=== PATIENT | female | born 1990 | race African-American/Black ===

== ENCOUNTER → 2016-11-03 | Outpatient (CLI) | payer MEDICAID ==
[~2016-11-03] MED LIST: ALBU17AE23 INH; AMIT25TA9 PO; AMLO5TAB2 PO; CEFD300C3 PO; CEFU250T PO; CEPH500C PO; CIPR500T78 PO; CPR500T PO; DIPH25TA82 PO; IBUP200C92 PO; LOSA100T28 PO; LOSA100T7 PO; NF-ESOM40C PO; NITR100C3 PO; ONDA8TAB9 PO; OXYC10TA63 PO; OXYC10TA7 PO; OXYC10TA8 PO; OXYC5TAB49 PO; PANT40TA2 PO; PHEN200T27 PO; RABE20TA PO; RT-ALBUINH IH; SULF1TAB38 PO; TEST2.5G6; TRM50T PO
--- OUTSIDE RECORDS SUMMARY | 2016-11-03 10:50 | XMS REPORT | Continuity of Care Document ---
Author Author [facility] Organization [facility] Address Unknown Phone Unavailable Care Team Providers Care Track Worker Name Role Phone Monse Schaeffer PCP [phone] Source Comments Some departments are not documenting in the electronic medical record. If you do not see the information that you expected, contact Release of Information in the Health Information Management department at [phone] for further assistance in locating additional records.[facility] Active Allergies and Adverse Reactions Allergen Noted Date Severity Reactions Comments Latex 05/02/2003 SEE COMMENTS Allergy recorded in SMS: Latex " latex is just precautionary because of her spina bifida" Lisinopril 04/19/2013 COUGH Macrobid 02/20/2014 SEE COMMENTS FLU LIKE SYMPTOMS - FEVER Metformin 04/19/2013 NAUSEA AND VOMITING Nuts 03/21/2008 NAUSEA AND VOMITING ONLY tree nuts,patient tolerates peanuts. Throat may swell up, but Dr. Galaviz stops it per patient Current Medications Prescription Sig. Disp. Refills Start End Date Status Date RABEprazole DR (+) Take 20 mg by mouth Active (ACIPHEX) 20 mg tablet daily. albuterol (VENTOLIN HFA, Inhale 2 Puffs by mouth Active PROAIR HFA) 90 every 6 hours as needed. mcg/actuation inhaler vitamins, multi PED Take 2 Tabs by mouth Active (GUMMI BEAR MULTIVITAMIN) daily. Chew ciprofloxacin (CIPRO) 500 Take 500 mg by mouth Active mg tablet twice daily. losartan(+) (COZAAR) 100 Take 1 Tab by mouth 90 Tab 3 02/11/20 Active mg tablet daily. 15 Active Problems Problem Noted Date Postop check 05/13/2013 Overview: 04/29/13 Foot deformity 12/16/2012 Overview: -- right foot HTN (hypertension) 12/11/2012 Hydrocele, congenital 10/15/2009 Status post ventriculoperitoneal shunt 10/15/2009 Spina bifida (HCC) 04/02/2008 Neurogenic bladder 04/02/2008 Social History Tobacco Use Types Packs/Day Years Used Date Never Smoker Smokeless Tobacco: Never Used Alcohol Use Drinks/Week oz/Week Comments No Last Filed Vital Signs Vital Sign Reading Time Taken Blood Pressure 134/83 04/28/2014 10:30 AM CDT Pulse 77 04/28/2014 10:30 AM CDT Temperature 36.5 C (97.7 F) 04/28/2014 10:15 AM CDT Respiratory Rate 18 01/23/2014 9:09 AM CDT Height 1.702 m (5' 7") 04/28/2014 7:44 AM CDT Weight 92.9 kg (204 lb 12.9 oz) 04/28/2014 7:44 AM CDT Body Mass Index 32.07 04/28/2014 7:44 AM CDT Oxygen Saturation 98% 04/28/2014 10:30 AM CDT Plan of Care Health Maintenance Due Date Last Done Comments Physical (Comprehensive) 1998 Exam Hpv Vaccines (#1) 2002 Pertussis Vaccine 2002 Tetanus Vaccine 2008 Cervical Cancer Screening 2012 Influenza Vaccine 06/02/2016 Results from Last 3 Months Not on file
--- NOTE | 2016-11-03 11:20 | Diagnostic Imaging Report ---
PROCEDURE: US Thyroid. TECHNIQUE: Multiple real-time grayscale images were obtained of the thyroid in various projections. INDICATION: Thyromegaly. FINDINGS: There is a right thyroid mass measuring 3 x 3.4 x 2.2 CM in the lower aspect of the right lobe with internal vascularity. The right thyroid lobe is 5.2 x 2.6 x 3.8 CM. The left lobe is 5.4 x 1.3 x 1.7 CM. No other nodules seen. IMPRESSION: Single inferior right thyroid lobe mass measuring 3.4 CM. Ultrasound-guided biopsy is recommended. Report was faxed to office of Marko Rivera by kellen massey 11:25 am. Dictated by: Dictated on workstation # [id number]
== END ==
LOC: RAD 10:43
PROVIDERS: ATTEND Nurse Practitioner Family
DX: E04.9 Nontoxic goiter, unspecified (principal)
CPT/HCPCS: 76536

== ENCOUNTER → 2016-11-24 | Outpatient (CLI) | payer MEDICAID ==
[~2016-11-24] VITALS: Ht 165.1 cm; Wt 90.7 kg
[~2016-11-24] MED LIST changes: +LIDOCAINE 1% INJ 20 ML (XYLOCAINE) VIAL INJ ONE
--- OUTSIDE RECORDS SUMMARY | 2016-11-24 10:54 | XMS REPORT | Continuity of Care Document ---
Author Author [facility] Organization [facility] Address Unknown Phone Unavailable Care Team Providers Care Loop Puller Name Role Phone Monse Schaeffer PCP [phone] Source Comments Some departments are not documenting in the electronic medical record. If you do not see the information that you expected, contact Release of Information in the Health Information Management department at [phone] for further assistance in locating additional records.[facility] Active Allergies and Adverse Reactions Allergen Noted [...]
--- NOTE | 2016-11-25 16:21 | Diagnostic Imaging Report ---
INDICATION: Thyroid mass. 205 ?Ci of I-123 was given p.o. The 4-hour uptake is 11% and the 24-hour uptake is 35%. Thyroid scan does show a cold nodule inferiorly in the right lobe which does correlate with the sonographic mass. IMPRESSION: 1. Solid nodule right lower lobe which represents a cold nodule on the thyroid scan. Ultrasound-guided fine-needle aspiration is indicated. 2. Normal thyroid uptake. Dictated by: Dictated on workstation # [id number]
== END ==
LOC: CARD 10:51
PROVIDERS: ATTEND Nurse Practitioner Family
DX: E07.89 Other specified disorders of thyroid (principal)
CPT/HCPCS: 78014

== ENCOUNTER → 2016-11-29 | Outpatient (CLI) | payer MEDICAID ==
[~2016-11-29] MED LIST changes: -LIDOCAINE 1% INJ 20 ML (XYLOCAINE) VIAL INJ ONE; +LIDOCAINE 1% INJ 20 ML (XYLOCAINE) VIAL ONE
--- NOTE | 2016-11-29 15:57 | Diagnostic Imaging Report ---
EXAMINATION: US-guided core biopsy-thyroid mass. INDICATION: Solid right thyroid mass measuring 3.4 CM. Current history and physical and other medical records are reviewed prior to the procedure. CONSENT: Informed consent was obtained from the patient. The risks, benefits, potential complications and alternatives were reviewed and all questions answered to the patient's satisfaction. The patient's vital signs, cardiac rhythm, and pulse oximetry with observed throughout the procedure by qualified nursing personnel. Sedation/medications: none. FINDINGS: 3.4 CM solid right thyroid mass. PROCEDURE: After maximal sterile barrier technique preparation and draping, 1% lidocaine was utilized for local anesthesia. With the patient in supine position, and via anterior approach, a 19-gauge guide needle is introduced into the right thyroid mass under live ultrasound guidance. After confirming adequate positioning with saved ultrasound images, multiple 20 gauge core biopsy specimens were obtained. The patient tolerated the procedure well with no immediate complications. IMPRESSION: Successful US-guided core biopsy of right thyroid mass. Dictated by: Dictated on workstation # [id number]
--- OUTSIDE RECORDS SUMMARY | 2016-11-29 16:06 | XMS REPORT | Continuity of Care Document ---
Author Author [facility] Organization [facility] Address Unknown Phone Unavailable Care Team Providers Care Upholstery Bundler Name Role Phone Monse Schaeffer PCP [phone] Source Comments Some departments are not documenting in the electronic medical record. If you do not see the information that you expected, contact Release of Information in the Health Information Management department at [phone] for further assistance in locating additional records.[facility] Active Allergies and Adverse Reactions Allergen Noted [...] 04/28/2014 10:30 AM CDT Plan of Care Date Type Specialty Providers Description 12/29/2016 Appointment Family Medicine Joyce Milan MD [address] [place] [address] [phone] (Fax) Health Maintenance Due Date Last Done Comments Physical (Comprehensive) 1998 Exam Hpv Vaccines (#1) 2002 Pertussis Vaccine 2002 Tetanus Vaccine 2008 Cervical Cancer Screening 2012 Influenza Vaccine 06/02/2016 Results from Last 3 Months Not on file
== END ==
LOC: RAD 12:55
PROVIDERS: ATTEND Nurse Practitioner Family
DX: E07.89 Other specified disorders of thyroid (principal)
CPT/HCPCS: 76942; 88305

== ENCOUNTER → 2016-12-29 | Outpatient (CLI) | payer MEDICAID ==
[~2016-12-29] MED LIST changes: -LIDOCAINE 1% INJ 20 ML (XYLOCAINE) VIAL ONE
--- NOTE | 2016-12-29 17:13 | Diagnostic Imaging Report ---
Renal ultrasound. INDICATION: Reflux. FINDINGS: The right kidney is 13.5 cm and the left kidney is 11.3 cm in length. There is bilateral mild hydronephrosis seen. The urinary bladder appears unremarkable. IMPRESSION: Bilateral mild hydronephrosis. Dictated by: Dictated on workstation # [id number]
== END ==
LOC: RAD 12:49
PROVIDERS: ATTEND Nurse Practitioner Family
DX: N31.1 Reflex neuropathic bladder, not elsewhere classified (principal)
CPT/HCPCS: 76770

== ENCOUNTER 2017-01-21 17:20 | Emergency (ER) | payer MEDICAID ==
[~2017-01-21] VITALS: Ht 165.1 cm; Wt 94.3 kg
[~2017-01-21 17:20] MED LIST changes: -CEFD300C3 PO; -LOSA100T28 PO; -TEST2.5G6
[2017-01-21] MEDS ORDERED: meTOprolol TARTRATE 25 MG (LOPRESSOR) TABLET ONE (17:54)
[2017-01-21] MEDS ORDERED: meTOprolol TARTRATE 25 MG (LOPRESSOR) TABLET PO ONE (18:00)
[2017-01-21 18:01] LABS: BILIRUBIN,URINE NEGATIVE (NEGATIVE); KETONES,URINE 3+ (NEGATIVE); LEUKOCYTE ESTERASE ,URINE 3+ (NEGATIVE); NITRITE,URINE POSITIVE (NEGATIVE); PH,URINE 7 (5-9); PROTEIN,URINE 3+ (NEGATIVE); UROBILINOGEN,URINE NORMAL (NORMAL)
[2017-01-21] MEDS ORDERED: LOSA100T28 PO (18:02)
[2017-01-21] MEDS ORDERED: CEFD300C3 PO ×2 (18:02→18:22)
--- NOTE | 2017-01-21 18:03 | ED Integumentary General ---
General Chief Complaint: Skin/Wound Problems Stated Complaint: BLISTER ON L&R FEET, POSSIBLE UTI Source: patient Exam Limitations: no limitations History of Present Illness Time seen by provider: 17:57 Initial Comments To ER with blisters to the back of both of her feet as well as a possible urinary tract infection. She states that she's been frequently urinating today. She urinates thru stoma in umbilicus after Mitrofanoff appendicovesicostomy done for neurogenic bladder secondary to Spindabifida. She also states that she's been working more than usual for the past few days at her new job at [employer] [place] and has been on her feet quite a bit. This is caused her some blisters to the back of her feet. She's also been out of her losartan 100 mg daily tablets for about a week. She is also using testosterone injections once a week for gender transition. Timing/Duration: yesterday, getting worse Severity: moderate Location: feet Associated Symptoms: blisters Allergies and Home Medications Allergies Coded Allergies: latex (Verified Allergy, Unknown, 02/14/07) metformin (Unverified Allergy, Unknown, DIARRHEA, 04/16/14) lisinopril (Unverified Adverse Reaction, Unknown, COUGH, 04/16/14) nitrofurantoin (Unverified Adverse Reaction, Unknown, BODY ACHES , 04/16/14 ) Uncoded Allergies: TREE NUTS (Allergy, Unknown, 04/16/14) Home Medications Albuterol Sulfate 8.5 Gm Hfa.aer.ad, 8.5 GM IH, (Reported) Esomeprazole Magnesium 40 Mg Cap, 40 MG PO DAILY, (Reported) Losartan Potassium 100 Mg Tablet, 100 MG PO DAILY, (Reported) Losartan Potassium 100 Mg Tablet, 100 MG PO DAILY, #14 Prescribed by: PERFECTO BYRNE on 01/21/17 1802 Testosterone 2.5 Gm Gel.packet, Unknown Dose WEEK, (Reported) Constitutional: see HPI EENTM: see HPI Respiratory: no symptoms reported Cardiovascular: no symptoms reported Genitourinary: no symptoms reported Musculoskeletal: no symptoms reported Skin: no symptoms reported Psychiatric/Neurological: No Symptoms Reported Endocrine: No Symptoms Reported Past [id number] Hx Patient Social History Recent Foreign Travel: No Contact w/Someone Who Travel: No Immunizations Up To Date Tetanus Booster (TDap): More than 5yrs PED Vaccines UTD: No Seasonal Allergies Seasonal Allergies: No Surgeries HX Surgeries: Yes (lower extremity reconstruction, shunt, back closure, ) Surgeries: Orthopedic Respiratory Hx Respiratory Disorders: Yes Respiratory Disorders: Asthma Cardiovascular Hx Cardiac Disorders: No Cardiac Disorders: Hypertension Neurological Hx Neurological Disorders: Yes (spina bifida) Reproductive System Hx Reproductive Disorders: No Sexually Transmitted Disease: No HIV/AIDS: No Female Reproductive Disorders: Denies Genitourinary Hx Genitourinary Disorders: Yes (mitroff) Genitourinary Disorders: Kidney Infection, Bladder Infection Gastrointestinal Hx Gastrointestinal Disorders: No Gastrointestinal Disorders: Gastroesophageal Reflux Musculoskeletal Hx Musculoskeletal Disorders: Yes (OSTEOMYELITIS) Musculoskeletal Disorders: Chronic Back Pain Endocrine Hx Endocrine Disorders: No HEENT HX ENT Disorders: No Loss of Vision: Denies Hearing Impairment: Denies Cancer Hx Cancer: No Psychosocial Hx Psychiatric Problems: No Integumentary HX Skin/Integumentary Disorder: No Blood Transfusions Hx Blood Disorders: No Family Medical History Significant Family History: No Pertinent Family Hx Family Medial History: Cancer 19 FATHER, Onset:Unknown Family history: Allergy 19 FATHER, Onset:Unknown 19 MOTHER, Onset:Unknown Family history: Diabetes mellitus 19 FATHER, Onset:Unknown 19 MOTHER, Onset:Unknown Family history: Gastrointestinal disease 19 FATHER, Onset:Unknown Family history: Hypertension 19 FATHER, Onset:Unknown 19 MOTHER, Onset:Unknown Family history: Thyroid disorder 19 MOTHER, Onset:Unknown Hypercholesterolemia 19 FATHER, Onset:Unknown Myocardial infarction 19 FATHER, Onset:Unknown No Family History of: Abdominal aortic aneurysm [place]'s disease Alcoholism Aphasia Cancer of colon Cataract Chest pain Congenital heart disease Congestive heart failure Cystic fibrosis Dementia Dysphagia Family history: Alzheimer's disease Family history: Arthritis Family history: Asthma Family history: Breast disease Family history: Cardiovascular disease Family history: Coronary thrombosis Family history: Glaucoma Family history: Osteoporosis Headache Hearing loss Heart disease Hereditary disease History of - anemia History of - disorder History of - respiratory disease History of drug abuse Human immunodeficiency virus (HIV) seropositivity Infertile Kidney disease Malignant neoplasm of lung Parkinson's disease Prostate cancer Psychotic disorder Seizure disorder Stroke Tuberculosis Visual impairment Physical Exam Vital Signs Vital Sign - Last 12Hours 01/21/17 17:52 Temp 98.1 Pulse 107 Resp 18 B/P (MAP) 169/112 Pulse Ox 98 O2 Delivery Room Air Capillary Refill : General Appearance: WD/WN, no apparent distress HEENT: PERRL/EOMI, normal ENT inspection Neck: non-tender, full range of motion Respiratory: no respiratory distress, no accessory muscle use Neurologic/Psychiatric: alert, normal mood/affect, oriented x 3 Skin: normal color, warm/dry Skin Problem Location: lower extremities Skin Problem Character: other (there is a large bulla to the posterior ankle/ calcaneus. There is a mild amount of surrounding inflammation. She states that the left foot/ankle blister was more tender than the right and she would like to have this fluid drained. This was cleaned with iodine and then a 20- gauge IV catheter was inserted into the bulla and or 0.5 mL of serous fluid was aspirated. This was then covered with gauze dressing.) Progress/Results/Core Measures Results/Orders Lab Results Laboratory Tests Test 01/21/17 17:49 Range/Units Urine Color YELLOW Urine Clarity VERY CLOUDY H Urine pH 7 5-9 Urine Specific [place] 1.010 L 1.016-1.022 Urine Protein 3+ H NEGATIVE Urine Glucose (UA) NEGATIVE NEGATIVE Urine Ketones 3+ H NEGATIVE Urine Nitrite POSITIVE H NEGATIVE Urine Bilirubin NEGATIVE NEGATIVE Urine Urobilinogen NORMAL NORMAL MG/DL Urine Leukocyte Esterase 3+ H NEGATIVE Urine RBC (Auto) 5+ H NEGATIVE Urine RBC 25-50 H /HPF Urine WBC TNTC H /HPF Urine Squamous Epithelial Cells NONE /HPF Urine Crystals NONE /LPF Urine Bacteria LARGE H /HPF Urine Casts NONE /LPF Urine Mucus NEGATIVE /LPF Urine Culture Indicated YES My Orders Orders - PERFECTO BYRNE APRN Metoprolol Tartrate (Ir) Tab (Lopressor (01/21/17 18:00) Ua Culture If Indicated (01/21/17 17:55) Metoprolol Tartrate (Ir) Tab (Lopressor (01/21/17 17:54) Urine Culture (01/21/17 17:49) Ceftriaxone Injection (Rocephin Injectio (01/21/17 18:30) Lidocaine 1% Injection (Xylocaine 1% Inj (01/21/17 18:30) Medications Given in ED Current Medications Medications Dose Ordered Sig/Ian Route Start Time Stop Time Status Last Admin Dose Admin Metoprolol Tartrate 25 mg ONCE ONCE PO 01/21/17 18:00 01/21/17 18:02 DC 01/21/17 17:58 25 MG Vital Signs/I&O Vital Sign - Last 12Hours 01/21/17 17:52 Temp 98.1 Pulse 107 Resp 18 B/P (MAP) 169/112 Pulse Ox 98 O2 Delivery Room Air Departure Impression Impression: Primary Impression: Urinary tract infection Qualified Codes: N30.00 - Acute cystitis without hematuria Additional Impression: Blister of foot Disposition: HOME, SELF-CARE Condition: Stable Departure-Patient Inst. Decision time for Depature: 18:00 Referrals: PAIGE MUÑIZ DO (PCP) Primary Care Physician JAMEEL BRIONES (Family) Primary Care Physician Patient Instructions: Blisters, Urinary Tract Infection, Adult (DC) Add. Discharge Instructions: 1. Stay off your feet as much as possible for the next 3-4 days as well as blisters heal 2. Return to ER for any redness or swelling of the feet to suggest infection 3. Antibiotics as directed 3. Follow-up with your doctor later this week 4. If the big bulky dressing on the back of both ankles or put fellows behind the calves of her legs to keep the heels of your feet off of the bed while U sleep. All discharge instructions reviewed with patient and/or family. Voiced understanding. Scripts Losartan Potassium (Losartan Potassium) 100 Mg Tablet 100 MG PO DAILY, #14 TAB Prov: PERFECTO BYRNE APRN 01/21/17 Work/School Note: Work Release Form Date Seen in the Emergency Department: Jan 21, 2017 Return to Work: Jan 24, 2017 Other Restrictions Listed Below: Final to sit for 30 minutes every hour for one week while blisters heal PERFECTO BYRNE APRN Jan 21, 2017 18:03
[2017-01-21 18:08] LABS: WBC,URINE TNTC /HPF
[2017-01-21] MEDS ORDERED: TEST2.5G6 (18:11)
[2017-01-21] MEDS ORDERED: LIDOCAINE 1% INJ 20 ML (XYLOCAINE) VIAL INJ ONE (18:30)
[2017-01-21] MEDS ORDERED: cefTRIAXone 1 GM (ROCEPHIN) VIAL IM ONE (18:30)
[2017-01-21 19:02] VITALS: BP 152/105
== END 2017-01-21 19:02 | disposition home or self-care (01) ==
LOC: EDUNIT# 17:20 → ER 17:22
DX: N39.0 Urinary tract infection, site not specified (principal); S90.821A Blister (nonthermal), right foot, initial encounter; S90.822A Blister (nonthermal), left foot, initial encounter; I10 Essential (primary) hypertension; Q05.9 Spina bifida, unspecified; N31.9 Neuromuscular dysfunction of bladder, unspecified; Z96.0 Presence of urogenital implants; Z98.890 Other specified postprocedural states
CPT/HCPCS: 81000; 87088; 87186; 96372; 99282

== ENCOUNTER 2017-01-26 11:04 | Outpatient (RCR) | payer MEDICAID ==
--- OUTSIDE RECORDS SUMMARY | 2016-12-19 08:25 | XMS REPORT | Continuity of Care Document ---
Author Author [facility] Organization [facility] Address Unknown Phone Unavailable Care Team Providers Care Broadcast Operations Director Name Role Phone Monse Schaeffer PCP [phone] Source Comments Some departments are not documenting in the electronic medical record. If you do not see the information that you expected, contact Release of Information in the Health Information Management department at [phone] for further assistance in locating additional records.[facility] Active Allergies and Adverse Reactions [...] Appointment Family Medicine Joyce Milan MD [address] [place] [address] [phone] (Fax) Health Maintenance Due Date Last Done Comments Physical (Comprehensive) 1998 Exam Hpv Vaccines (#1) 2002 Pertussis Vaccine 2002 Tetanus Vaccine 2008 Cervical Cancer Screening 2012 Influenza Vaccine 06/02/2016 Results from Last 3 Months Not on file
[~2017-01-26 11:04] MED LIST changes: +CEFD300C3 PO; +LOSA100T28 PO; +TEST2.5G6
== END 2017-02-07 11:40 | disposition home or self-care (01) ==
PROVIDERS: ATTEND Nurse Practitioner Family
DX: Q05.2 Lumbar spina bifida with hydrocephalus (principal); M79.671 Pain in right foot; M79.672 Pain in left foot

== ENCOUNTER 2017-03-18 21:57 | Emergency (ER) | payer MEDICAID ==
[~2017-03-18] VITALS: Ht 165.1 cm; Wt 94.3 kg
[2017-03-18] MEDS ORDERED: NS IV 1000 ML 1,000 ML IV ONE (22:10)
[2017-03-18 22:34] LABS: BILIRUBIN,URINE NEGATIVE (NEGATIVE); KETONES,URINE NEGATIVE (NEGATIVE); LEUKOCYTE ESTERASE ,URINE NEGATIVE (NEGATIVE); NITRITE,URINE NEGATIVE (NEGATIVE); PH,URINE 6 (5-9); PROTEIN,URINE 1+ (NEGATIVE); UROBILINOGEN,URINE NORMAL (NORMAL)
[2017-03-18 22:36] LABS: BASOPHILS % (AUTO) 0 % (0-10); EOSINOPHILS # (AUTO) 0.4 10^3/uL (0.0-0.3); EOSINOPHILS % (AUTO) 3 % (0-10); LYMPHOCYTES # (AUTO) 3.6 X 10^3 (1.0-4.0); LYMPHOCYTES % (AUTO) 28 % (12-44); MEAN CORPUSCULAR HEMOGLOBIN 25 PG (25-34); MEAN CORPUSCULAR HGB CONC 33 G/DL (32-36); MEAN CORPUSCULAR VOLUME 76 FL (80-99); MEAN PLATELET VOLUME 10.6 FL (7.4-10.4); MONOCYTES # (AUTO) 0.9 X 10^3 (0.0-1.0); MONOCYTES % (AUTO) 7 % (0-12); NEUTROPHILS # (AUTO) 7.8 X 10^3 (1.8-7.8); NEUTROPHILS % (AUTO) 61 % (42-75); PLATELET COUNT 373 10^3/uL (130-400); RED BLOOD COUNT 5.63 10^6/uL (4.35-5.85); WHITE BLOOD COUNT 12.7 10^3/uL (4.3-11.0)
[2017-03-18 22:44] LABS: SQUAMOUS EPITHELIAL CELL,UR 0-5 /HPF
[2017-03-18 22:52] LABS: ALANINE AMINOTRANSFERASE 19 U/L (0-55); ALBUMIN 4.5 GM/DL (3.2-4.5); ANION GAP 12 MMOL/L (5-14); ASPARTATE AMINO TRANSFERASE 25 U/L (5-34); BILIRUBIN,TOTAL 0.3 MG/DL (0.1-1.0); BLOOD UREA NITROGEN 9 MG/DL (7-18); BUN/CREATININE RATIO 11 (0-20); CALCIUM 10.2 MG/DL (8.5-10.1); CARBON DIOXIDE 21 MMOL/L (21-32); CHLORIDE 109 MMOL/L (98-107); CREATININE SERUM 0.85 MG/DL (0.60-1.30); GFR ESTIMATED > 60; GLUCOSE 90 MG/DL (70-105); HEMOLYSIS 12 (-100-29); ICTERUS 0.2 (-100-1.9); LIPEMIA 4 (-100-49); POTASSIUM 3.9 MMOL/L (3.6-5.0); SODIUM 142 MMOL/L (135-145); TOTAL PROTEIN 8.1 GM/DL (6.4-8.2)
--- NOTE | 2017-03-18 23:22 | ED GI ---
General Chief Complaint: Abdominal/GI Problems Stated Complaint: DIARRHEA Nursing Triage Note: States having diarrhea daily for the last 7 days. States it will wake her from sleep. States water will go straight through. Diarrhea is foamy yellow. States she was on Cipro 1 month ago for uti Sepsis Screen: No Definite Risk Source of Information: Patient Exam Limitations: No Limitations History of Present Illness Time Seen By Provider: 22:12 Allergies and Home Medications Allergies Coded Allergies: latex (Verified Allergy, Unknown, 03/18/17) metformin (Unverified Allergy, Unknown, DIARRHEA, 04/16/14) lisinopril (Unverified Adverse Reaction, Unknown, COUGH, 04/16/14) nitrofurantoin (Unverified Adverse Reaction, Unknown, BODY ACHES , 04/16/14 ) Uncoded Allergies: TREE NUTS (Allergy, Unknown, 04/16/14) Home Medications Albuterol Sulfate 8.5 Gm Hfa.aer.ad, 8.5 GM IH, (Reported) Losartan Potassium 100 Mg Tablet, 100 MG PO DAILY, (Reported) Losartan Potassium 100 Mg Tablet, 100 MG PO DAILY, #14 Prescribed by: PERFECTO BYRNE on 01/21/17 1802 Testosterone 2.5 Gm Gel.packet, Unknown Dose WEEK, (Reported) Past Eopgqgm-Ppynmo-Ghfdxk Hx Patient Social History Alcohol Use: Denies Use Recreational Drug Use: No Smoking Status: Never a Smoker 2nd Hand Smoke Exposure: No Recent Foreign Travel: No Contact w/Someone Who Travel: No Recent Infectious Disease Expo: No Recent Hopitalizations: No Immunizations Up To Date Tetanus Booster (TDap): More than 5yrs PED Vaccines UTD: No Seasonal Allergies Seasonal Allergies: No Surgeries HX Surgeries: Yes (lower extremity reconstruction, shunt, back closure, ) Surgeries: Orthopedic Respiratory Hx Respiratory Disorders: Yes Respiratory Disorders: Asthma Cardiovascular Hx Cardiac Disorders: No Cardiac Disorders: Hypertension Neurological Hx Neurological Disorders: Yes (spina bifida) Reproductive System Hx Reproductive Disorders: No (In process of sex change) Sexually Transmitted Disease: No HIV/AIDS: No Female Reproductive Disorders: Denies Genitourinary Hx Genitourinary Disorders: Yes (mitroff) Genitourinary Disorders: Kidney Infection, Bladder Infection Gastrointestinal Hx Gastrointestinal Disorders: No Gastrointestinal Disorders: Gastroesophageal Reflux Musculoskeletal Hx Musculoskeletal Disorders: Yes (OSTEOMYELITIS) Musculoskeletal Disorders: Chronic Back Pain Endocrine Hx Endocrine Disorders: No HEENT HX ENT Disorders: No Loss of Vision: Denies Hearing Impairment: Denies Cancer Hx Cancer: No Psychosocial Hx Psychiatric Problems: No Integumentary HX Skin/Integumentary Disorder: No Blood Transfusions Hx Blood Disorders: No Family Medical History Significant Family History: No Pertinent Family Hx Family Medial History: Cancer 19 FATHER, Onset:Unknown Family history: Allergy 19 FATHER, Onset:Unknown 19 MOTHER, Onset:Unknown Family history: Diabetes mellitus 19 FATHER, Onset:Unknown 19 MOTHER, Onset:Unknown Family history: Gastrointestinal disease 19 FATHER, Onset:Unknown Family history: Hypertension 19 FATHER, Onset:Unknown 19 MOTHER, Onset:Unknown Family history: Thyroid disorder 19 MOTHER, Onset:Unknown Hypercholesterolemia 19 FATHER, Onset:Unknown Myocardial infarction 19 FATHER, Onset:Unknown No Family History of: Abdominal aortic aneurysm [place]'s disease Alcoholism Aphasia Cancer of colon Cataract Chest pain Congenital heart disease Congestive heart failure Cystic fibrosis Dementia Dysphagia Family history: Alzheimer's disease Family history: Arthritis Family history: Asthma Family history: Breast disease Family history: Cardiovascular disease Family history: Coronary thrombosis Family history: Glaucoma Family history: Osteoporosis Headache Hearing loss Heart disease Hereditary disease History of - anemia History of - disorder History of - respiratory disease History of drug abuse Human immunodeficiency virus (HIV) seropositivity Infertile Kidney disease Malignant neoplasm of lung Parkinson's disease Prostate cancer Psychotic disorder Seizure disorder Stroke Tuberculosis Visual impairment Physical Exam Vital Signs VS - Last 72 Hours, by Label 03/18/17 22:07 Temp 98.3 Pulse 89 Resp 18 B/P (MAP) 155/95 Pulse Ox 99 Capillary Refill : Less Than 3 Seconds Progress/Results/Core Measures Results/Orders Lab Results Laboratory Tests Test 03/18/17 22:20 03/18/17 22:29 Range/Units Urine Color YELLOW Urine Clarity CLEAR Urine pH 6 5-9 Urine Specific [place] 1.015 L 1.016-1.022 Urine Protein 1+ H NEGATIVE Urine Glucose (UA) NEGATIVE NEGATIVE Urine Ketones NEGATIVE NEGATIVE Urine Nitrite NEGATIVE NEGATIVE Urine Bilirubin NEGATIVE NEGATIVE Urine Urobilinogen NORMAL NORMAL MG/DL Urine Leukocyte Esterase NEGATIVE NEGATIVE Urine RBC (Auto) 2+ H NEGATIVE Urine RBC NONE /HPF Urine WBC 2-5 /HPF Urine Squamous Epithelial Cells 0-5 /HPF Urine Crystals PRESENT H /LPF Urine Amorphous Sediment RARE RONALD URATES H /LPF Urine Bacteria NEGATIVE /HPF Urine Casts NONE /LPF Urine Mucus NEGATIVE /LPF Urine Culture Indicated NO White Blood Count 12.7 H 4.3-11.0 10^3/uL Red Blood Count 5.63 4.35-5.85 10^6/uL Hemoglobin 13.8 11.5-16.0 G/DL Hematocrit 43 35-52 % Mean Corpuscular Volume 76 L 80-99 FL Mean Corpuscular Hemoglobin 25 25-34 PG Mean Corpuscular Hemoglobin Concent 33 32-36 G/DL Red Cell Distribution Width 19.0 H 10.0-14.5 % Platelet Count 373 130-400 10^3/uL Mean Platelet Volume 10.6 H 7.4-10.4 FL Neutrophils (%) (Auto) 61 42-75 % Lymphocytes (%) (Auto) 28 12-44 % Monocytes (%) (Auto) 7 0-12 % Eosinophils (%) (Auto) 3 0-10 % Basophils (%) (Auto) 0 0-10 % Neutrophils # (Auto) 7.8 1.8-7.8 X 10^3 Lymphocytes # (Auto) 3.6 1.0-4.0 X 10^3 Monocytes # (Auto) 0.9 0.0-1.0 X 10^3 Eosinophils # (Auto) 0.4 H 0.0-0.3 10^3/uL Basophils # (Auto) 0.0 0.0-0.1 10^3/uL Sodium Level 142 135-145 MMOL/L Potassium Level 3.9 3.6-5.0 MMOL/L Chloride Level 109 H 98-107 MMOL/L Carbon Dioxide Level 21 21-32 MMOL/L Anion Gap 12 5-14 MMOL/L Blood Urea Nitrogen 9 7-18 MG/DL Creatinine 0.85 0.60-1.30 MG/DL Estimat Glomerular Filtration Rate > 60 BUN/Creatinine Ratio 11 0-20 Glucose Level 90 70-105 MG/DL Calcium Level 10.2 H 8.5-10.1 MG/DL Total Bilirubin 0.3 0.1-1.0 MG/DL Aspartate Amino Transf (AST/SGOT) 25 5-34 U/L Alanine Aminotransferase (ALT/SGPT) 19 0-55 U/L Alkaline Phosphatase 95 40-136 U/L Total Protein 8.1 6.4-8.2 GM/DL Albumin 4.5 3.2-4.5 GM/DL My [facility] - TERRY COOPER Saline Lock/Iv-Start (03/18/17 22:10) Cbc With Automated Diff (03/18/17 22:10) Comprehensive Metabolic Panel (03/18/17 22:10) Ua Culture If Indicated (03/18/17 22:10) Ns Iv 1000 Ml (Sodium Chloride 0.9%) (03/18/17 22:10) Heart Tones (03/18/17 23:44) Stool Culture (03/18/17 23:46) Ova And Parasite Exam (03/18/17 23:46) C Difficile Ag + Toxin A/B. (03/18/17 23:46) Fecal Wbc (03/18/17 23:46) Medications Given in ED Current Medications Medications Dose Ordered Sig/Ian Route Start Time Stop Time Status Last Admin Dose Admin Sodium Chloride 1,000 ml @ 0 mls/hr Q0M ONCE IV 03/18/17 22:10 03/18/17 22:13 DC 03/18/17 22:32 1,000 MLS/HR Vital Signs/I&O Vital Sign - Last 12Hours 03/18/17 22:07 Temp 98.3 Pulse 89 Resp 18 B/P (MAP) 155/95 Pulse Ox 99 Blood Pressure Mean: 115 Departure Impression Impression: Primary Impression: Diarrhea Disposition: 01 HOME, SELF-CARE Condition: Improved Departure-Patient Inst. Decision time for Depature: 00:02 Referrals: PAIEG MUÑIZ DO (PCP) Primary Care Physician JAMEEL BRIONES (Family) Primary Care Physician MACIE MARTINEZ MD Patient Instructions: Clostridium difficile (DC), Diarrhea in Adolescents and Adults Add. Discharge Instructions: All discharge instructions reviewed with patient and/or family. Voiced understanding. Medications as directed. Continue usual medications. Clear liquid diet until symptoms improve, then increase diet slowly to a low residue diet. Follow-up with your family practitioner as an outpatient for recheck and possible need for referral for colonoscopy, call first thing Monday morning for appointment time. Return to the emergency department for worsened symptoms or any other concerns. Scripts L. Acidophilus/Bulgaricus (Lactinex Chewable Tablet) 1 Each Tab.chew 3 EACH PO TID, #120 TAB 0 Refills Prov: TERRY COOPER 03/19/17 Cholestyramine/Aspartame (Questran Light Powder) 210 Gm Powder 210 GM PO UD, #1 EA 0 Refills 1/2-1 scoop mixed with 8 oz of fluids BID prn diarrhea Prov: TERRY COOPER 03/19/17 Metronidazole (Metronidazole) 500 Mg Tablet 500 MG PO QID, #40 TAB 0 Refills Prov: TERRY COOPER 03/19/17 Work/School Note: Work Release Form Date Seen in the Emergency Department: Mar 19, 2017 Return to Work: Mar 20, 2017 TERRY COOPER Mar 18, 2017 23:22
[2017-03-19] MEDS ORDERED: ACID1TAB5 PO (00:11)
[2017-03-19] MEDS ORDERED: METR500T21 PO (00:11)
[2017-03-19] MEDS ORDERED: CHOL210P2 PO (00:11)
[2017-03-19 00:18] VITALS: BP 155/95
== END 2017-03-19 00:16 | disposition home or self-care (01) ==
LOC: EDUNIT# 21:57 → ER 21:59
DX: R19.7 Diarrhea, unspecified (principal); J45.909 Unspecified asthma, uncomplicated; I10 Essential (primary) hypertension
CPT/HCPCS: 36415; 80053; 81000; 85025; 87045; 87046; 87177; 87324; 87328; 87329; 87449; 89055

== ENCOUNTER 2017-04-08 13:00 | Emergency (ER) | payer MEDICAID ==
[~2017-04-08] VITALS: Ht 167.6 cm; Wt 83.9 kg
[~2017-04-08 13:00] MED LIST changes: +ACID1TAB5 PO; +CHOL210P2 PO; +METR500T21 PO
[2017-04-08] MEDS ORDERED: NS IV 1000 ML 1,000 ML IV ONE (14:35)
[2017-04-08] MEDS ORDERED: ONDANSETRON 4 MG/2 ML (SDV) Z0FRAN IVP ONE ×2 (14:45→15:45)
[2017-04-08 15:00] LABS: BILIRUBIN,URINE NEGATIVE (NEGATIVE); KETONES,URINE NEGATIVE (NEGATIVE); LEUKOCYTE ESTERASE ,URINE 3+ (NEGATIVE); NITRITE,URINE POSITIVE (NEGATIVE); PH,URINE 6.5 (5-9); PROTEIN,URINE 1+ (NEGATIVE); UROBILINOGEN,URINE NORMAL (NORMAL)
[2017-04-08 15:09] LABS: WBC,URINE 25-50 /HPF
--- NOTE | 2017-04-08 15:09 | ED GI ---
General Chief Complaint: Abdominal/GI Problems Stated Complaint: N/V/D Nursing Triage Note: PT WAS SEEN 3 WEEKS AGO FOR N/V/D. SHE WAS UNABLE TO GET APPT WITH PCP F/U. SCHEDULED FOR SCOPES WITH DR FINLEY 05/16/17. Sepsis Screen: No Definite Risk Source of Information: Patient, Other Exam Limitations: No Limitations History of Present Illness Time Seen By Provider: 14:25 Initial Comments 26-year-old transgender patient presents to the emergency department complains of nausea, vomiting, and diarrhea for 3 weeks. Patient goes by the name Denis. Patient was seen by this examiner on March 18 for similar complaints. Patient states he did follow-up with Dr. Finley as previously instructed and is scheduled May 16 for upper and lower endoscopy. Patient reports symptoms are worse today. Now states symptoms have actually been going on for approximately one year and have progressively gotten worse over the last 6 months. States he tried contacting her PCP but was unable to be seen. Timing/Duration: Getting Worse, Other (see history of present illness) Severity/Quality: Cramping Location: Generalized Abdomen Activities at Onset: None Modifying Factors: Worsens With Eating, Worsens With Palpation Allergies and Home Medications Allergies Coded Allergies: latex (Verified Allergy, Unknown, 03/18/17) metformin (Unverified Allergy, Unknown, DIARRHEA, 04/16/14) lisinopril (Unverified Adverse Reaction, Unknown, COUGH, 04/16/14) nitrofurantoin (Unverified Adverse Reaction, Unknown, BODY ACHES , 04/16/14 ) Uncoded Allergies: TREE NUTS (Allergy, Unknown, 04/16/14) Home Medications Albuterol Sulfate 8.5 Gm Hfa.aer.ad, 8.5 GM IH, (Reported) Cholestyramine/Aspartame 210 Gm Powder, 210 GM PO UD, #1 Ref 0 1/2-1 scoop mixed with 8 oz of fluids BID prn diarrhea Prescribed by: TERRY COOPER on 03/19/17 0011 Ciprofloxacin HCl 500 Mg Tablet, 500 MG PO BID, #14 Ref 0 Prescribed by: TERRY COOPER on 04/08/17 1850 L. Acidophilus/Bulgaricus 1 Each Tab.chew, 3 EACH PO TID, #120 Ref 0 Prescribed by: TERRY COOPER on 03/19/17 0011 Losartan Potassium 100 Mg Tablet, 100 MG PO DAILY, (Reported) Losartan Potassium 100 Mg Tablet, 100 MG PO DAILY, #14 Prescribed by: PERFECTO BYRNE on 01/21/17 1802 Metronidazole 500 Mg Tablet, 500 MG PO QID, #40 Ref 0 Prescribed by: TERRY COOPER on 03/19/17 0011 Metronidazole 500 Mg Tablet, 500 MG PO TID, #21 Ref 0 Prescribed by: TERRY COOPER on 04/08/17 185 Ondansetron 8 Mg Tab.rapdis, 8 MG PO Q6H PRN for NAUSEA/VOMITING-1ST LINE, #10 Ref 0 Prescribed by: TERRY COOPER on 04/08/171849 Testosterone 2.5 Gm Gel.packet, Unknown Dose WEEK, (Reported) Review of Systems Constitutional: No chills, No dizziness, No fever, No malaise Respiratory: Denies Cough, Denies Shortness of Air Cardiovascular: Denies Chest Pain, Denies Lightheadedness Gastrointestinal: See HPI, Denies Abdomen Distended, Abdominal Pain, Denies Blood Streaked Stools, Denies Constipated, Diarrhea, Nausea, Poor Appetite, Poor Fluid Intake, Denies Rectal Bleeding, Vomiting Genitourinary: Denies Burning, Denies Discharge, Denies Frequency, Denies Flank Pain, Denies Hematuria, Denies Pain Musculoskeletal: other (generalized body aches today.) Skin: no symptoms reported Psychiatric/Neurological: No Symptoms Reported Endocrine: No Symptoms Reported All Other Systems Reviewed Negative Unless Noted: Yes (Negative excepted noted.) Past Unhvdvf-Hpknat-Flypzh Hx Patient Social History Alcohol Use: Occasionally Uses Recreational Drug Use: Yes (pot) Smoking Status: Never a Smoker 2nd Hand Smoke Exposure: No Recent Foreign Travel: No Contact w/Someone Who Travel: No Recent Infectious Disease Expo: No Recent Hopitalizations: Yes Immunizations Up To Date Tetanus Booster (TDap): More than 5yrs PED Vaccines UTD: No Seasonal Allergies Seasonal Allergies: No Surgeries HX Surgeries: Yes (lower extremity reconstruction, shunt, back closure, ) Surgeries: Bladder Surgery, Orthopedic Respiratory Hx Respiratory Disorders: Yes Respiratory Disorders: Asthma Cardiovascular Hx Cardiac Disorders: No Cardiac Disorders: Hypertension Neurological Hx Neurological Disorders: Yes (spina bifida, neurogenic bladder) Reproductive System Hx Reproductive Disorders: No (In process of sex change) Sexually Transmitted Disease: No HIV/AIDS: No Female Reproductive Disorders: Denies (patient is transgender and is currently on testosterone therapy.) Genitourinary Hx Genitourinary Disorders: Yes (mitroff) Genitourinary Disorders: Kidney Infection, Bladder Infection Gastrointestinal Hx Gastrointestinal Disorders: No Gastrointestinal Disorders: Gastroesophageal Reflux Musculoskeletal Hx Musculoskeletal Disorders: Yes (OSTEOMYELITIS) Musculoskeletal Disorders: Chronic Back Pain Endocrine Hx Endocrine Disorders: No HEENT HX ENT Disorders: No Loss of Vision: Denies Hearing Impairment: Denies Cancer Hx Cancer: No Psychosocial Hx Psychiatric Problems: No Integumentary HX Skin/Integumentary Disorder: No Blood Transfusions Hx Blood Disorders: No Reviewed Nursing Assessment Reviewed/Agree w Nursing PMH: Yes Family Medical History Significant Family History: No Pertinent Family Hx Family Medial History: Cancer 19 FATHER, Onset:Unknown Family history: Allergy 19 FATHER, Onset:Unknown 19 MOTHER, Onset:Unknown Family history: Diabetes mellitus 19 FATHER, Onset:Unknown 19 MOTHER, Onset:Unknown Family history: Gastrointestinal disease 19 FATHER, Onset:Unknown Family history: Hypertension 19 FATHER, Onset:Unknown 19 MOTHER, Onset:Unknown Family history: Thyroid disorder 19 MOTHER, Onset:Unknown Hypercholesterolemia 19 FATHER, Onset:Unknown Myocardial infarction 19 FATHER, Onset:Unknown No Family History of: Abdominal aortic aneurysm [place]'s disease Alcoholism Aphasia Cancer of colon Cataract Chest pain Congenital heart disease Congestive heart failure Cystic fibrosis Dementia Dysphagia Family history: Alzheimer's disease Family history: Arthritis Family history: Asthma Family history: Breast disease Family history: Cardiovascular disease Family history: Coronary thrombosis Family history: Glaucoma Family history: Osteoporosis Headache Hearing loss Heart disease Hereditary disease History of - anemia History of - disorder History of - respiratory disease History of drug abuse Human immunodeficiency virus (HIV) seropositivity Infertile Kidney disease Malignant neoplasm of lung Parkinson's disease Prostate cancer Psychotic disorder Seizure disorder Stroke Tuberculosis Visual impairment Physical Exam Vital Signs VS - Last 72 Hours, by Label 04/08/17 04/08/17 13:46 19:00 Temp 98.6 98.6 Pulse 84 84 Resp 16 16 B/P (MAP) 167/91 Pulse Ox 98 Capillary Refill : Less Than 3 Seconds General Appearance: WD/WN, no apparent distress Neck: non-tender, full range of motion, supple, thyromegaly ((patient states she has seen an broker for this)) Respiratory: lungs clear, normal breath sounds, no respiratory distress Cardiovascular: normal peripheral pulses, regular rate, rhythm, no edema, no murmur Gastrointestinal: normal bowel sounds, soft, no organomegaly, No distended, guarding (generalized guarding noted), No rebound, tenderness (generalized tenderness), other (well-healed surgical scars consistent with past surgical history.) Extremities: no pedal edema, normal capillary refill Back: normal inspection, no CVA tenderness Pelvic: other (patient refuses pelvic exam.) Neurologic/Psychiatric: alert, normal mood/affect, oriented x 3 Skin: normal color, warm/dry Progress/Results/Core Measures Results/Orders Lab Results Laboratory Tests Test 04/08/17 14:54 04/08/17 15:05 Range/Units Urine Color YELLOW Urine Clarity CLEAR Urine pH 6.5 5-9 Urine Specific [place] 1.010 L 1.016-1.022 Urine Protein 1+ H NEGATIVE Urine Glucose (UA) NEGATIVE NEGATIVE Urine Ketones NEGATIVE NEGATIVE Urine Nitrite POSITIVE H NEGATIVE Urine Bilirubin NEGATIVE NEGATIVE Urine Urobilinogen NORMAL NORMAL MG/DL Urine Leukocyte Esterase 3+ H NEGATIVE Urine RBC (Auto) 1+ H NEGATIVE Urine RBC 2-5 H /HPF Urine WBC 25-50 H /HPF Urine Squamous Epithelial Cells 10-25 H /HPF Urine Crystals NONE /LPF Urine Bacteria MODERATE H /HPF Urine Casts NONE /LPF Urine Mucus NEGATIVE /LPF Urine Culture Indicated YES Urine Test NEGATIVE NEGATIVE White Blood Count 10.0 4.3-11.0 10^3/uL Red Blood Count 5.78 4.35-5.85 10^6/uL Hemoglobin 14.3 11.5-16.0 G/DL Hematocrit 44 35-52 % Mean Corpuscular Volume 77 L 80-99 FL Mean Corpuscular Hemoglobin 25 25-34 PG Mean Corpuscular Hemoglobin Concent 32 32-36 G/DL Red Cell Distribution Width 18.5 H 10.0-14.5 % Platelet Count 323 130-400 10^3/uL Mean Platelet Volume 10.4 7.4-10.4 FL Neutrophils (%) (Auto) 76 H 42-75 % Lymphocytes (%) (Auto) 13 12-44 % Monocytes (%) (Auto) 8 0-12 % Eosinophils (%) (Auto) 2 0-10 % Basophils (%) (Auto) 0 0-10 % Neutrophils # (Auto) 7.7 1.8-7.8 X 10^3 Lymphocytes # (Auto) 1.4 1.0-4.0 X 10^3 Monocytes # (Auto) 0.8 0.0-1.0 X 10^3 Eosinophils # (Auto) 0.2 0.0-0.3 10^3/uL Basophils # (Auto) 0.0 0.0-0.1 10^3/uL Sodium Level 139 135-145 MMOL/L Potassium Level 3.9 3.6-5.0 MMOL/L Chloride Level 107 98-107 MMOL/L Carbon Dioxide Level 21 21-32 MMOL/L Anion Gap 11 5-14 MMOL/L Blood Urea Nitrogen 8 7-18 MG/DL Creatinine 0.74 0.60-1.30 MG/DL Estimat Glomerular Filtration Rate > 60 BUN/Creatinine Ratio 11 Glucose Level 87 70-105 MG/DL Calcium Level 9.3 8.5-10.1 MG/DL Total Bilirubin 0.3 0.1-1.0 MG/DL Aspartate Amino Transf (AST/SGOT) 20 5-34 U/L Alanine Aminotransferase (ALT/SGPT) 17 0-55 U/L Alkaline Phosphatase 96 40-136 U/L Total Protein 7.8 6.4-8.2 GM/DL Albumin 4.3 3.2-4.5 GM/DL My Orders Orders - TERRY COOPER Cbc With Automated Diff (04/08/17 14:35) Comprehensive Metabolic Panel (04/08/17 14:35) Ua Culture If Indicated (04/08/17 14:35) Saline Lock/Iv-Start (04/08/17 14:35) Ondansetron Injection (Zofran Injectio (04/08/17 14:45) Ns Iv 1000 Ml (Sodium Chloride 0.9%) (04/08/17 14:35) Urine Culture (04/08/17 14:54) Ct Abdomen/Pelvis W (04/08/17 15:39) Ondansetron Injection (Zofran Injectio (04/08/17 15:45) Ketorolac Injection (Toradol Injection) (04/08/17 15:39) Iohexol Injection (Omnipaque 350 Mg/Ml 1 (04/08/17 15:45) Ns (Ivpb) (Sodium Chloride 0.9% Ivpb Bag (04/08/17 15:45) Hcg,Qualitative Urine (04/08/17 15:41) Medications Given in ED Current Medications Medications Dose Ordered Sig/Ian Route Start Time Stop Time Status Last Admin Dose Admin Iohexol 100 ml ONCE ONCE IV 04/08/17 15:45 04/08/17 15:46 DC 04/08/17 16:22 100 ML Ondansetron HCl 4 mg ONCE ONCE IVP 04/08/17 14:45 04/08/17 14:46 DC 04/08/17 15:07 4 MG Ondansetron HCl 4 mg ONCE ONCE IVP 04/08/17 15:45 04/08/17 15:46 DC 04/08/17 15:54 4 MG Sodium Chloride 100 ml ONCE ONCE IV 04/08/17 15:45 04/08/17 15:46 DC 04/08/17 16:22 80 ML Sodium Chloride 1,000 ml @ 0 mls/hr Q0M ONCE IV 04/08/17 14:35 04/08/17 14:36 DC 04/08/17 15:07 1,000 MLS/HR Vital Signs/I&O Vital Sign - Last 12Hours 04/08/17 04/08/17 13:46 19:00 Temp 98.6 98.6 Pulse 84 84 Resp 16 16 B/P (MAP) 167/91 Pulse Ox 98 Blood Pressure Mean: 116 Diagnostic Imaging Diagonstic Imaging: CT Plain Films/CT/US/NM/MRI: abdomen, pelvis Comments FINDINGS: Lung bases are clear. Liver, gallbladder, spleen, pancreas and adrenal glands are unremarkable. Abdominal aorta is normal in contour. Slight asymmetry with the left kidney slightly smaller than the right kidney with a somewhat lobulated appearance, perhaps from scarring. No hydronephrosis. No obstruction. The gastrointestinal tract demonstrates perhaps mildly prominent enhancing loops of small bowel in the right mid abdomen. No obstruction. Colon unremarkable. An appendix is not well-defined on this study. Urinary bladder is slightly thickwalled. Uterus and cervix are very mildly prominent. Some edema about the cervix is not excluded. There is presence of an apparent ventriculoperitoneal shunt tube coursing into the abdomen in the upper midline and terminating in the pelvis with small amount of free pelvic fluid. Spina bifida defect at the lower level. IMPRESSION: 1. There is question of some thickwalled loops of small bowel for which underlying enteritis is not excluded. 2. Ventricular peritoneal catheter with small amount of free pelvic fluid the 2. Thick walled appearance but the urinary bladder the may be owing to perhaps neurogenic bladder. Cystitis could also give this appearance. 3. Asymmetric somewhat lobulated perhaps scarred appearance but the left kidney, mild in severity and 5. Very coarse wall the thickened appearance about the cervix. The possibility of underlying edema at this level is not excluded.. Dictated on workstation # [id number] Reviewed: Reviewed by Me (radiology report reviewed by me) Departure Communication Progress Notes Patient case discussed with Dr. Finley. Recommends starting patient on antibiotics as well as a clear liquid diet. Also recommends patient proceed with endoscopy as previously scheduled. Laboratory, diagnostic findings, and recommendations by Dr. Finley discussed with the patient. There is concern for possible edema surrounding the cervix. Patient refuses pelvic exam. I have discussed all risks, benefits, and possible complications associated with deferring the pelvic exam. Patient voices understanding and continues to refuse pelvic exam. States he will follow-up with a PCP or bonding machine operator for this. I have stressed the importance of following up for pelvic exam. Proceed with discharge to home. All return precautions were discussed with the patient. Patient voices understanding and agrees with the treatment plan. Impression Impression: Primary Impression: Urinary tract infection Qualified Codes: N30.01 - Acute cystitis with hematuria Additional Impressions: Abdominal pain Qualified Codes: R10.84 - Generalized abdominal pain Nausea vomiting and diarrhea possible edema of the cervix Disposition: HOME, SELF-CARE Condition: Improved Departure-Patient Inst. Decision time for Depature: 18:42 Referrals: PAIGE MUÑIZ DO (PCP) Primary Care Physician JAMEEL BRIONES (Family) Primary Care Physician Patient Instructions: Urinary Tract Infection, Adult (DC), Acute Abdomen ( Belly Pain), Adult (DC), Diarrhea in Adolescents and Adults Add. Discharge Instructions: All discharge instructions reviewed with patient and/or family. Voiced understanding. Medications as instructed. Tylenol extra strength [id number] as directed for pain. Ibuprofen 800 mg by mouth every 8 hours as needed for pain. Imodium over the counter for diarrhea. Avoid fruits, vegetables, spicy foods, and fatty foods. Clear liquid diet x2-3 days. FOLLOW-UP WITH THE MASK INSPECTOR FOR A PELVIC EXAM IN THE NEXT 7-10 DAYS. CALL MONDAY FOR APPOINTMENT TIME. FOLLOW-UP WITH YOUR FAMILY PRACTITIONER FOR RECHECK IN THE NEXT 3-4 DAYS. CALL FOR APPOINTMENT TIME. PROCEED WITH COLONOSCOPY AND EGD May PREVIOUSLY SCHEDULED BY DR. FINLEY. Return to the emergency department for worsened symptoms or any other concerns. Scripts Ondansetron (Ondansetron Odt) 8 Mg Tab.rapdis 8 MG PO Q6H Y for NAUSEA/VOMITING-1ST LINE, #10 TAB 0 Refills Prov: TERRY COOPER 04/08/17 Metronidazole (Metronidazole) 500 Mg Tablet 500 MG PO TID, #21 TAB 0 Refills Prov: TERRY COOPER 04/08/17 Ciprofloxacin HCl (Ciprofloxacin HCl) 500 Mg Tablet 500 MG PO BID, #14 TAB 0 Refills Prov: TERRY COOPER 04/08/17 Work/School Note: Work Release Form Date Seen in the Emergency Department: Apr 08, 2017 Return to Work: Apr 11, 2017 Copy Copies To 1: PAIGE MUÑIZ DO; TIM MOLINA MD, GRETCHEN L PA Apr 08, 2017 15:09
[2017-04-08 15:28] LABS: BASOPHILS % (AUTO) 0 % (0-10); EOSINOPHILS # (AUTO) 0.2 10^3/uL (0.0-0.3); EOSINOPHILS % (AUTO) 2 % (0-10); LYMPHOCYTES # (AUTO) 1.4 X 10^3 (1.0-4.0); LYMPHOCYTES % (AUTO) 13 % (12-44); MEAN CORPUSCULAR HEMOGLOBIN 25 PG (25-34); MEAN CORPUSCULAR HGB CONC 32 G/DL (32-36); MEAN CORPUSCULAR VOLUME 77 FL (80-99); MEAN PLATELET VOLUME 10.4 FL (7.4-10.4); MONOCYTES # (AUTO) 0.8 X 10^3 (0.0-1.0); MONOCYTES % (AUTO) 8 % (0-12); NEUTROPHILS # (AUTO) 7.7 X 10^3 (1.8-7.8); NEUTROPHILS % (AUTO) 76 % (42-75); PLATELET COUNT 323 10^3/uL (130-400); RED BLOOD COUNT 5.78 10^6/uL (4.35-5.85); RED CELL DISTRIBUTION WIDTH 18.5 % (10.0-14.5)
[2017-04-08] MEDS ORDERED: KETOROLAC 30 MG/ML VIAL IVP STA (15:39)
[2017-04-08] MEDS ORDERED: IOHEXOL 350 MG/ML 100 ML (OMNIPAQUE 350) VIAL IV ONE (15:45)
[2017-04-08] MEDS ORDERED: NS 100 ML (IVPB) BAG IV ONE (15:45)
[2017-04-08 15:47] LABS: ALANINE AMINOTRANSFERASE 17 U/L (0-55); ALBUMIN 4.3 GM/DL (3.2-4.5); ANION GAP 11 MMOL/L (5-14); ASPARTATE AMINO TRANSFERASE 20 U/L (5-34); BILIRUBIN,TOTAL 0.3 MG/DL (0.1-1.0); BLOOD UREA NITROGEN 8 MG/DL (7-18); BUN/CREATININE RATIO 11; CALCIUM 9.3 MG/DL (8.5-10.1); CARBON DIOXIDE 21 MMOL/L (21-32); CHLORIDE 107 MMOL/L (98-107); CREATININE SERUM 0.74 MG/DL (0.60-1.30); GFR ESTIMATED > 60; GLUCOSE 87 MG/DL (70-105); POTASSIUM 3.9 MMOL/L (3.6-5.0); SODIUM 139 MMOL/L (135-145); TOTAL PROTEIN 7.8 GM/DL (6.4-8.2)
--- NOTE | 2017-04-08 17:16 | Diagnostic Imaging Report ---
PROCEDURE: CT abdomen and pelvis with contrast. TECHNIQUE: Multiple contiguous axial images were obtained through the abdomen and pelvis after administration of intravenous contrast. INDICATION: Nausea, vomiting and diarrhea x 1 year. Increasing severity over the past six months. Aches and chills. CORRELATION STUDY: None. FINDINGS: Lung bases are clear. Liver, gallbladder, spleen, pancreas and adrenal glands are unremarkable. Abdominal aorta is normal in contour. Slight asymmetry with the left kidney slightly smaller than the right kidney with a somewhat lobulated appearance, perhaps from scarring. No hydronephrosis. No obstruction. The gastrointestinal tract demonstrates perhaps mildly prominent enhancing loops of small bowel in the right mid abdomen. No obstruction. Colon unremarkable. An appendix is not well-defined on this study. Urinary bladder is slightly thickwalled. Uterus and cervix are very mildly prominent. Some edema about the cervix is not excluded. There is presence of an apparent ventriculoperitoneal shunt tube coursing into the abdomen in the upper midline and terminating in the pelvis with small amount of free pelvic fluid. Spina bifida defect at the lower level. IMPRESSION: 1. There is question of some thickwalled loops of small bowel for which underlying enteritis is not excluded. 2. Ventricular peritoneal catheter with small amount of free pelvic fluid the 2. Thick walled appearance but the urinary bladder the may be owing to perhaps neurogenic bladder. Cystitis could also give this appearance. 3. Asymmetric somewhat lobulated perhaps scarred appearance but the left kidney, mild in severity and 5. Suggested thickened appearance about the cervix. The possibility of underlying edema and/or mass at this level is not excluded.. Dictated by: Dictated on workstation # [id number]
[2017-04-08] MEDS ORDERED: METR500T21 PO (18:50)
[2017-04-08] MEDS ORDERED: CIPR500T4 PO (18:50)
[2017-04-08] MEDS ORDERED: ONDA8TAB13 PO (18:50)
[2017-04-08 19:00] VITALS: BP 167/91
--- OUTSIDE RECORDS SUMMARY | 2017-04-11 09:32 | XMS REPORT | Continuity of Care Document ---
Author Author [facility] Organization [facility] Address Unknown Phone Unavailable Care Team Providers Care Cad Detailer Name Role Phone Vaishnavi Franz PCP [phone] Source Comments Some departments are not documenting in the electronic medical record. If you do not see the information that you expected, contact Release of Information in the Health Information Management department at [phone] for further assistance in locating additional records.[facility] Active Allergies and Adverse Reactions Allergen [...] 1 Tab by mouth 90 Tab 3 11/12/19 Active mg tablet daily. 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 HTN (hypertension) 12/11/2012 Hydrocele, congenital 10/15/2009 Status post ventriculoperitoneal shunt 10/15/2009 Spina bifida (HCC) 04/02/2008 Neurogenic bladder 04/02/2008 Resolved Problems Problem Noted Date Resolved Date Postop check 05/13/2013 12/29/2016 Overview: 04/29/13 Most Recent Encounters Date Type Specialty Providers Description 04/11/2017 [facility] Emergency Medicine Rico Payne MD Encounter Social History Tobacco Use Types Packs/Day Years Used Date Never Smoker Smokeless Tobacco: Never Used Alcohol Use Drinks/Week oz/Week Comments No Last Filed Vital Signs Vital Sign Reading Time Taken Blood Pressure 157/87 04/11/2017 6:00 AM CDT Pulse 82 04/11/2017 1:16 AM CDT Temperature 37.3 C (99.1 F) 04/11/2017 1:15 AM CDT Respiratory Rate 18 01/23/2014 9:09 AM CDT Height 1.702 m (5' 7") 04/28/2014 7:44 AM CDT Weight 82.555 kg (182 lb) 04/11/2017 1:15 AM CDT Body Mass Index 28.5 04/11/2017 1:15 AM CDT Oxygen Saturation 99% 04/11/2017 6:00 AM CDT Plan of Care Health Maintenance Due Date Last Done Comments Physical (Comprehensive) 1998 Exam Hpv Vaccines (#1) 2002 Pertussis Vaccine 2002 Tetanus Vaccine 2008 Cervical Cancer Screening 2012 Influenza Vaccine 06/02/2017 Results from Last 3 Months * US PELVIS NON OB COMP (04/11/2017 6:52 AM) Impressions Normal appearance of the uterus and ovaries. Small amount of fluid within the posterior cul-de-sac, likely physiologic. By my electronic signature, I attest that I have personally reviewed the images for this examination and formulated the interpretations and opinions expressed in this report Finalized by James Barney M.D. on 04/11/2017 7:11 AM. Dictated by Yariel Mazariegos M.D. on 04/11/2017 6:50 AM. Narrative US TRANSVAGINAL, US PELVIS NON OB COMP Clinical Indication: 26-year-old female. Abdominal pain. Diarrhea. Technique: Multiple grayscale sonographic images were obtained of the pelvis transvaginally and transabdominally, with additional color Doppler and spectral Doppler acquisitions. Comparison: None Findings: The uterus is normal in size measuring 7.3 x 3.8. No myometrial masses are seen. The endometrium is normal in thickness measuring 0.7.No endometrial masses or abnormal blood flow is seen. The right ovary is normal in size, measuring 2.7 x 1.8.There is normal arterial blood flow in the ovary. No right adnexal masses are seen. The left ovary is normal in size, measuring 2.2 x 1.4.There is normal arterial blood flow in the ovary. No left adnexal masses are seen. There is a small amount of fluid noted within the posterior cul-de-sac. Procedure Note Interface, Radiant Results - Tue Apr 11, 2017 7:14 AM CDT US TRANSVAGINAL, US PELVIS NON OB COMP Clinical Indication: 26-year-old female. Abdominal pain. Diarrhea. Technique: Multiple grayscale sonographic images were obtained of the pelvis transvaginally and transabdominally, with additional color Doppler and spectral Doppler acquisitions. Comparison: None Findings: The uterus is normal in size measuring 7.3 x 3.8. No myometrial masses are seen. The endometrium is normal in thickness measuring 0.7. No endometrial masses or abnormal blood flow is seen. The right ovary is normal in size, measuring 2.7 x 1.8. There is normal arterial blood flow in the ovary. No right adnexal masses are seen. The left ovary is normal in size, measuring 2.2 x 1.4. There is normal arterial blood flow in the ovary. No left adnexal masses are seen. There is a small amount of fluid noted within the posterior cul-de-sac. IMPRESSION Normal appearance of the uterus and ovaries. Small amount of fluid within the posterior cul-de-sac, likely physiologic. By my electronic signature, I attest that I have personally reviewed the images for this examination and formulated the interpretations and opinions expressed in this report Finalized by James Barney M.D. on 04/11/2017 7:11 AM. Dictated by Yariel Mazariegos M.D. on 04/11/2017 6:50 AM. * US TRANSVAGINAL (04/11/2017 6:52 AM) Impressions Normal appearance of the uterus and ovaries. Small amount of fluid within the posterior cul-de-sac, likely physiologic. By my electronic signature, I attest that I have personally reviewed the images for this examination and formulated the interpretations and opinions expressed in this report Finalized by James Barney M.D. on 04/11/2017 7:11 AM. Dictated by Yariel Mazariegos M.D. on 04/11/2017 6:50 AM. Narrative US TRANSVAGINAL, US PELVIS NON OB COMP Clinical Indication: 26-year-old female. Abdominal pain. Diarrhea. Technique: Multiple grayscale sonographic images were obtained of the pelvis transvaginally and transabdominally, with additional color Doppler and spectral Doppler acquisitions. Comparison: None Findings: The uterus is normal in size measuring 7.3 x 3.8. No myometrial masses are seen. The endometrium is normal in thickness measuring 0.7.No endometrial masses or abnormal blood flow is seen. The right ovary is normal in size, measuring 2.7 x 1.8.There is normal arterial blood flow in the ovary. No right adnexal masses are seen. The left ovary is normal in size, measuring 2.2 x 1.4.There is normal arterial blood flow in the ovary. No left adnexal masses are seen. There is a small amount of fluid noted within the posterior cul-de-sac. Procedure Note Interface, Radiant Results - Tue Apr 11, 2017 7:14 AM CDT US TRANSVAGINAL, US PELVIS NON OB COMP Clinical Indication: 26-year-old female. Abdominal pain. Diarrhea. Technique: Multiple grayscale sonographic images were obtained of the pelvis transvaginally and transabdominally, with additional color Doppler and spectral Doppler acquisitions. Comparison: None Findings: The uterus is normal in size measuring 7.3 x 3.8. No myometrial masses are seen. The endometrium is normal in thickness measuring 0.7. No endometrial masses or abnormal blood flow is seen. The right ovary is normal in size, measuring 2.7 x 1.8. There is normal arterial blood flow in the ovary. No right adnexal masses are seen. The left ovary is normal in size, measuring 2.2 x 1.4. There is normal arterial blood flow in the ovary. No left adnexal masses are seen. There is a small amount of fluid noted within the posterior cul-de-sac. IMPRESSION Normal appearance of the uterus and ovaries. Small amount of fluid within the posterior cul-de-sac, likely physiologic. By my electronic signature, I attest that I have personally reviewed the images for this examination and formulated the interpretations and opinions expressed in this report Finalized by James Barney M.D. on 04/11/2017 7:11 AM. Dictated by Yariel Mazariegos M.D. on 04/11/2017 6:50 AM. * DIRECT EXAM (WET PREP) (04/11/2017 4:45 AM) Component Value Range Battery Name DIRECT EXAM,WET PREP Specimen Description VAGINAL Special Requests NONE Direct Exam NO YEAST SEEN NO CLUE CELLS SEEN NO TRICHOMONAS SEEN Report Status FINAL 04/11/2017 Specimen Vaginal * URINALYSIS, MICROSCOPIC (04/11/2017 4:28 AM) Component Value Range WBCs,UA 2-10 0-2 /HPF RBCs,UA 2-10 0-3 /HPF MucousUA TRACE Specimen Urine * URINALYSIS DIPSTICK (04/11/2017 4:28 AM) Component Value Range Color,UA YELLOW Turbidity,UA CLEAR CLEAR-CLEAR Specific [place]-Urine 1.016 1.003-1.035 pH,UA 5.0 5.0-8.0 Protein,UA NEG NEG-NEG Glucose,UA NEG NEG-NEG Ketones,UA NEG NEG-NEG Bilirubin,UA NEG NEG-NEG Blood,UA NEG NEG-NEG Urobilinogen,UA NORMAL NORM-NORMAL Nitrite,UA NEG NEG-NEG Leukocytes,UA 1+ (A) NEG-NEG Urine Ascorbic Acid, UA NEG NEG-NEG Specimen Urine * LIPASE (04/11/2017 2:02 AM) Component Value Range Lipase 8 (L) 11-82 U/L * CBC AND DIFF (04/11/2017 2:02 AM) Component Value Range White Blood Cells 10.0 4.5-11.0 K/UL RBC 5.52 (H) 4.0-5.0 M/UL Hemoglobin 14.1 12.0-15.0 GM/DL Hematocrit 42.9 36-45 % MCV 77.7 (L) 80-100 FL MCH 25.6 (L) 26-34 PG MCHC 32.9 32.0-36.0 G/DL RDW 19.0 (H) 11-15 % Platelet Count 314 150-400 K/UL MPV 9.3 7-11 FL Neutrophils 53 41-77 % Lymphocytes 31 24-44 % Monocytes 9 4-12 % Eosinophils 6 (H) 0-5 % Basophils 1 0-2 % Absolute Neutrophil Count 5.30 1.8-7.0 K/UL Absolute Lymph Count 3.10 1.0-4.8 K/UL Absolute Monocyte Count 0.90 (H) 0-0.80 K/UL Absolute Eosinophil Count 0.60 (H) 0-0.45 K/UL Absolute Basophil Count 0.10 0-0.20 K/UL * COMPREHENSIVE METABOLIC PANEL (04/11/2017 2:02 AM) Component Value Range Sodium 138 137-147 MMOL/L Potassium 3.8 3.5-5.1 MMOL/L Chloride 107 98-110 MMOL/L Glucose 79 70-100 MG/DL Blood Urea Nitrogen 6 (L) 7-25 MG/DL Creatinine 0.82 0.4-1.00 MG/DL Calcium 9.4 8.5-10.6 MG/DL Total Protein 7.6 6.0-8.0 G/DL Total Bilirubin 0.3 0.3-1.2 MG/DL Albumin 4.2 3.5-5.0 G/DL Alk Phosphatase 76 25-110 U/L AST (SGOT) 23 7-40 U/L CO2 21 21-30 MMOL/L ALT (SGPT) 14 7-56 U/L Anion Gap 10 3-12 eGFR Non >60Comment: >60 mL/min The eGFR is not validated for use in drug dosing adjustments. Continue to use estimated creatinine clearance per dosing reference text. Please contact the Clinical Pharmacist for questions. eGFR >60Comment: >60 mL/min The eGFR is not validated for use in drug dosing adjustments. Continue to use estimated creatinine clearance per dosing reference text. Please contact the Clinical Pharmacist for questions.
--- OUTSIDE RECORDS SUMMARY | 2017-04-11 09:34 | XMS REPORT | Continuity of Care Document ---
Author Author [facility] Address Unknown Phone Unavailable Allergies Active Description Code Type Severity Reaction Onset Reported/Identified Relationship to Patient Clinical Status Yes Latex OA N/A N/A 11/07/2008 Yes nuts Food Allergy N/A N/A 11/07/2008 Yes Latex OA 03/2009 Yes nuts Food Allergy 11/07/2008 Yes metformin 500 mg tablet,ER sanam.retention 24 hr Drug Allergy N/A N/A 09/06/2012 Yes metformin 500 mg tablet,ER sanam.retention 24 hr Drug Allergy 09/06/2012 Yes lisinopril 40 mg tablet Drug Allergy N/A N/A 10/09/2012 Yes lisinopril 40 mg tablet Drug Allergy 10/09/2012 Yes Macrobid Drug Allergy N/A N/A 11/27/2013 Yes lisinopril [id number] Drug Allergy Unknown COUGH 04/16/2014 Yes metformin [id number] Drug Allergy Unknown DIARRHEA 04/16/2014 Yes nitrofurantoin [id number] Drug Allergy Unknown BODY ACHES 04/16/2014 Yes TREE NUTS TREE NUTS Unknown N/A 04/16/2014 Yes latex [id number] Drug Allergy Unknown N/A 03/18/2017 Medications Problems Date Dx Coded Attending Type Code Diagnosis Diagnosed By 08/31/1139 JAMEEL BRIONES RAM PRESS OPERATOR Ot M79.671 PAIN IN RIGHT FOOT 08/31/1139 JAMEEL BRIONES RAM PRESS OPERATOR Ot M79.672 PAIN IN LEFT FOOT 08/31/1139 JAMEEL BRIONES RAM PRESS OPERATOR Ot 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 04/19/2008 PAIGE MUÑIZ DO V20.2 Preventive Medicine New Patient Evaluation Childhood -04/19/2008 PAIGE MUÑIZ DO V20.2 Preventive Medicine New Patient Evaluation Childhood -04/19/2008 PAIGE MUÑIZ DO V20.2 Preventive Medicine New Patient Evaluation Childhood 02-0904/19/2008 MARY KAY PALACIOS PAIGE K V20.2 Preventive Medicine New Patient Evaluation Childhood 02-0904/19/2008 V20.2 Preventive Medicine New Patient Evaluation Childhood 02-0904/19/2008 NAOMI VACA APRN V20.2 Preventive Medicine New Patient Evaluation Childhood 02-0904/19/2008 GLENROY DE OLIVEIRA, RAYMUNDO R V20.2 Preventive Medicine New Patient Evaluation Childhood 02-0904/19/2008 GLENROY SOMMERSN, RAYMUNDO R V20.2 Preventive Medicine New Patient Evaluation Childhood 02-0904/19/2008 GLENROY TELEPHONE REPAIRER, RAYMUNDO R V20.2 Preventive Medicine New Patient Evaluation Childhood 02-0904/19/2008 GLENROY SOMMERSN, RAYMUNDO R V20.2 Preventive Medicine New Patient Evaluation Childhood 02-0904/19/2008 GLENROY DE OLIVEIRA, RAYMUNDO R V20.2 Preventive Medicine New Patient Evaluation Childhood 02-0904/19/2008 MUÑIZ DO PAIGE K V20.2 Preventive Medicine New Patient Evaluation Childhood 02-0904/19/2008 GLENROY DE OLIVEIRA, RAYMUNDO R V20.2 Preventive Medicine New Patient Evaluation Childhood 02-0911/07/2008 MARY KAY PALACIOS PAIGE K 599.0 URINARY TRACT INFECTION 11/07/2008 MUÑIZ DO PAIGE 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0 URINARY TRACT INFECTION 11/07/2008 NAOMI VACA APRN 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 11/07/2008 GLENROY TELEPHONE REPAIRER, RAYMUNDO R 599.0 URINARY TRACT INFECTION 11/07/2008 GLENROY TELEPHONE REPAIRER, RAYMUNDO 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 11/07/2008 GLENROY TELEPHONE REPAIRER, RAYMUNDO R 599.0 URINARY TRACT INFECTION 11/07/2008 GLENROY TELEPHONE REPAIRER, RAYMUNDO 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 11/07/2008 GLENROY TELEPHONE REPAIRER, RAYMUNDO R 599.0 URINARY TRACT INFECTION 11/07/2008 GLENROY TELEPHONE REPAIRER, RAYMUNDO 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 11/07/2008 GLENROY TELEPHONE REPAIRER, RAYMUNDO R 599.0 URINARY TRACT INFECTION 11/07/2008 GLENROY TELEPHONE REPAIRER, RAYMUNDO 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 11/07/2008 GLENROY TELEPHONE REPAIRER, RAYMUNDO R 599.0 URINARY TRACT INFECTION 11/07/2008 GLENROY TELEPHONE REPAIRER, RAYMUNDO 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 11/07/2008 MUÑIZ DO PAIGE K 599.0 URINARY TRACT INFECTION 11/07/2008 MUÑIZ DO, PAIGE 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 11/07/2008 GLENROY TELEPHONE REPAIRER, RAYMUNDO R 599.0 URINARY TRACT INFECTION 11/07/2008 GLENROY TELEPHONE REPAIRER, RAYMUNDO 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 04/09/2009 MUÑIZ DO, PAIGE K 741.90 SPINA BIFIDA UNSPECIFIED REGION WITHOUT HYDROCEPHALUS 04/09/2009 MUÑIZ DO, PAIGE K V05.3 HEPATITIS VIRAL/ALL 04/09/2009 MUÑIZ DO, PAIGE K 741.90 SPINA BIFIDA UNSPECIFIED REGION WITHOUT HYDROCEPHALUS 04/09/2009 MUÑIZ DO, PAIGE K V05.3 HEPATITIS VIRAL/ALL 04/09/2009 MUÑIZ DO, PAIGE K 741.90 SPINA BIFIDA UNSPECIFIED REGION WITHOUT HYDROCEPHALUS 04/09/2009 MUÑIZ DO, PAIGE K V05.3 HEPATITIS VIRAL/ALL 04/09/2009 MUÑIZ DO, PAIGE K 741.90 SPINA BIFIDA UNSPECIFIED REGION WITHOUT HYDROCEPHALUS 04/09/2009 MUÑIZ DO, PAIGE K V05.3 HEPATITIS VIRAL/ALL 04/09/2009 741.90 SPINA BIFIDA UNSPECIFIED REGION WITHOUT HYDROCEPHALUS 04/09/2009 V05.3 HEPATITIS VIRAL/ALL 04/09/2009 LIO SOMMERSN, NAOMI M 741.90 SPINA BIFIDA UNSPECIFIED REGION WITHOUT HYDROCEPHALUS 04/09/2009 VACA TELEPHONE REPAIRER, NAOMI M V05.3 HEPATITIS VIRAL/ALL 04/09/2009 GLENROY TELEPHONE REPAIRER, RAYMUNDO R 741.90 SPINA BIFIDA UNSPECIFIED REGION WITHOUT HYDROCEPHALUS 04/09/2009 GLENROY TELEPHONE REPAIRER, RAYMUNDO R V05.3 HEPATITIS VIRAL/ALL 04/09/2009 GLENROY TELEPHONE REPAIRER, RAYMUNDO R 741.90 SPINA BIFIDA UNSPECIFIED REGION WITHOUT HYDROCEPHALUS 04/09/2009 GLENROY TELEPHONE REPAIRER, RAYMUNDO R V05.3 HEPATITIS VIRAL/ALL 04/09/2009 GLENROY TELEPHONE REPAIRER, RAYMUNDO R 741.90 SPINA BIFIDA UNSPECIFIED REGION WITHOUT HYDROCEPHALUS 04/09/2009 GLENROY TELEPHONE REPAIRER, RAYMUNDO R V05.3 HEPATITIS VIRAL/ALL 04/09/2009 GLENROY TELEPHONE REPAIRER, RAYMUNDO R 741.90 SPINA BIFIDA UNSPECIFIED REGION WITHOUT HYDROCEPHALUS 04/09/2009 [facility] TELEPHONE REPAIRER, RAYMUNDO R V05.3 HEPATITIS VIRAL/ALL 04/09/2009 [facility] TELEPHONE REPAIRER, RAYMUNDO R 741.90 SPINA BIFIDA UNSPECIFIED REGION WITHOUT HYDROCEPHALUS 04/09/2009 [facility] TELEPHONE REPAIRER, RAYMUNDO R V05.3 HEPATITIS VIRAL/ALL 04/09/2009 MUÑIZ DO, PAIGE K 741.90 SPINA BIFIDA UNSPECIFIED REGION WITHOUT HYDROCEPHALUS 04/09/2009 MUÑIZ DO, PAIGE K V05.3 HEPATITIS VIRAL/ALL 04/09/2009 [facility] TELEPHONE REPAIRER, RAYMUNDO R 741.90 SPINA BIFIDA UNSPECIFIED REGION WITHOUT HYDROCEPHALUS 04/09/2009 [facility] TELEPHONE REPAIRER, RAYMUNDO R V05.3 HEPATITIS VIRAL/ALL 08/17/2010 MUÑIZ DO, PAIGE K 780.4 DIZZINESS AND VERTIGO 08/17/2010 MUÑIZ DO, PAIGE K 786.52 CHEST WALL PAIN 08/17/2010 MUÑIZ DO, PAIGE K 780.4 DIZZINESS AND VERTIGO 08/17/2010 MUÑIZ DO, PAIGE K 786.52 CHEST WALL PAIN 08/17/2010 MUÑIZ DO, PAIGE K 780.4 DIZZINESS AND VERTIGO 08/17/2010 MUÑIZ DO, PAIGE K 786.52 CHEST WALL PAIN 08/17/2010 MUÑIZ DO, PAIGE K 780.4 DIZZINESS AND VERTIGO 08/17/2010 MUÑIZ DO, PAIGE K 786.52 CHEST WALL PAIN 08/17/2010 780.4 DIZZINESS AND VERTIGO 08/17/2010 786.52 CHEST WALL PAIN 08/17/2010 LIO TELEPHONE REPAIRERNAOMI Bellamy M 780.4 DIZZINESS AND VERTIGO 08/17/2010 NAOMI VACA APRN M 786.52 CHEST WALL PAIN 08/17/2010 GLENROY TELEPHONE REPAIRER, RAYMUNDO R 780.4 DIZZINESS AND VERTIGO 08/17/2010 GLENROY TELEPHONE REPAIRER, RAYMUNDO R 786.52 CHEST WALL PAIN 08/17/2010 GLENROY TELEPHONE REPAIRER, RAYMUNDO R 780.4 DIZZINESS AND VERTIGO 08/17/2010 GLENROY TELEPHONE REPAIRER, RAYMUNDO R 786.52 CHEST WALL PAIN 08/17/2010 GLENROY TELEPHONE REPAIRER, RAYMUNDO R 780.4 DIZZINESS AND VERTIGO 08/17/2010 GLENROY TELEPHONE REPAIRER, RAYMUNDO R 786.52 CHEST WALL PAIN 08/17/2010 GLENROY TELEPHONE REPAIRER, RAYMUNDO R 780.4 DIZZINESS AND VERTIGO 08/17/2010 GLENROY TELEPHONE REPAIRER, RAYMUNDO R 786.52 CHEST WALL PAIN 08/17/2010 GLENROY TELEPHONE REPAIRER, RAYMUNDO R 780.4 DIZZINESS AND VERTIGO 08/17/2010 GLENROY TELEPHONE REPAIRER, RAYMUNDO R 786.52 CHEST WALL PAIN 08/17/2010 MARY KAY PALACIOS PAIGE K 780.4 DIZZINESS AND VERTIGO 08/17/2010 MARY KAY PALACIOS PAIGE K 786.52 CHEST WALL PAIN 08/17/2010 GLENROY TELEPHONE REPAIRER, RAYMUNDO R 780.4 DIZZINESS AND VERTIGO 08/17/2010 GLENROY TELEPHONE REPAIRER, RAYMUNDO R 786.52 CHEST WALL PAIN 11/11/2010 Ot 599.0 URIN TRACT INFECTION NOS 11/11/2010 Ot 729.1 MYALGIA AND MYOSITIS NOS 01/04/2011 Ot 038.9 SEPTICEMIA NOS 01/04/2011 Ot 331.4 OBSTRUCTIV HYDROCEPHALUS 01/04/2011 Ot 995.91 SEPSIS 01/04/2011 Ot V45.2 VENTRICULAR SHUNT STATUS 03/17/2011 MARY KAY DO PAIGE K 754.70 TALIPES UNSPECIFIED 03/17/2011 MARY KAY PALACIOS PAIGE K 790.29 OTHER ABNORMAL GLUCOSE 03/17/2011 MARY KAY PALACIOS PAIGE K V18.0 FAMILY HISTORY OF DIABETES MELLITUS 03/17/2011 MARY KAY PALACIOS PAIGE K 754.70 TALIPES UNSPECIFIED 03/17/2011 MARY KAY PALACIOS PAIGE K 790.29 OTHER ABNORMAL GLUCOSE 03/17/2011 MARY KAY PALACIOS PAIGE K V18.0 FAMILY HISTORY OF DIABETES MELLITUS 03/17/2011 PAIGE MUÑIZ DO K 754.70 TALIPES UNSPECIFIED 03/17/2011 KATYA MUÑIZ DOA K 790.29 OTHER ABNORMAL GLUCOSE 03/17/2011 PAIGE MUÑIZ DO K V18.0 FAMILY HISTORY OF DIABETES MELLITUS 03/17/2011 MARY KAY PALACIOS, PAIGE K 754.70 TALIPES UNSPECIFIED 03/17/2011 PAIGE MUÑIZ DO K 790.29 OTHER ABNORMAL GLUCOSE 03/17/2011 PAIGE MUÑIZ DO K V18.0 FAMILY HISTORY OF DIABETES MELLITUS 03/17/2011 754.70 TALIPES UNSPECIFIED 03/17/2011 790.29 OTHER ABNORMAL GLUCOSE 03/17/2011 V18.0 FAMILY HISTORY OF DIABETES MELLITUS 03/17/2011 NAOMI VACA APRN 754.70 TALIPES UNSPECIFIED 03/17/2011 NAOMI VACA APRN 790.29 OTHER ABNORMAL GLUCOSE 03/17/2011 NAOMI VACA APRN V18.0 FAMILY HISTORY OF DIABETES MELLITUS 03/17/2011 GLENROY SOMMERSN, RAYMUNDO R 754.70 TALIPES UNSPECIFIED 03/17/2011 GLENROY TELEPHONE REPAIRER, RAYMUNDO R 790.29 OTHER ABNORMAL GLUCOSE 03/17/2011 GLENROY SOMMERSN, RAYMUNDO R V18.0 FAMILY HISTORY OF DIABETES MELLITUS 03/17/2011 GLENROY SOMMERSN, RAYMUNDO R 754.70 TALIPES UNSPECIFIED 03/17/2011 GLENROY TELEPHONE REPAIRER, RAYMUNDO R 790.29 OTHER ABNORMAL GLUCOSE 03/17/2011 GLENROY SOMMERSN, RAYMUNDO R V18.0 FAMILY HISTORY OF DIABETES MELLITUS 03/17/2011 GLENROY SOMMERSN, RAYMUNDO R 754.70 TALIPES UNSPECIFIED 03/17/2011 GLENROY TELEPHONE REPAIRER, RAYMUNDO R 790.29 OTHER ABNORMAL GLUCOSE 03/17/2011 GLENROY TELEPHONE REPAIRER, RAYMUNDO R V18.0 FAMILY HISTORY OF DIABETES MELLITUS 03/17/2011 GLENROY TELEPHONE REPAIRER, RAYMUNDO R 754.70 TALIPES UNSPECIFIED 03/17/2011 GLENROY SOMMERSN, RAYMUNDO R 790.29 OTHER ABNORMAL GLUCOSE 03/17/2011 GLENROY SOMMERSN, RAYMUNDO R V18.0 FAMILY HISTORY OF DIABETES MELLITUS 03/17/2011 GLENROY SOMMERSN, RAYMUNDO R 754.70 TALIPES UNSPECIFIED 03/17/2011 GLENROY SOMMERSN, RAYMUNDO R 790.29 OTHER ABNORMAL GLUCOSE 03/17/2011 GLENROY TELEPHONE REPAIRER, RAYMUNDO R V18.0 FAMILY HISTORY OF DIABETES MELLITUS 03/17/2011 MUÑIZ DO, PAIGE K 754.70 TALIPES UNSPECIFIED 03/17/2011 MUÑIZ DO, PAIGE K 790.29 OTHER ABNORMAL GLUCOSE 03/17/2011 MUÑIZ DO, PAIGE K V18.0 FAMILY HISTORY OF DIABETES MELLITUS 03/17/2011 GLENROY TELEPHONE REPAIRER, RAYMUNDO R 754.70 TALIPES UNSPECIFIED 03/17/2011 GLENROY TELEPHONE REPAIRER, RAYMUNDO R 790.29 OTHER ABNORMAL GLUCOSE 03/17/2011 GLENROY TELEPHONE REPAIRER, RAYMUNDO R V18.0 FAMILY HISTORY OF DIABETES MELLITUS 04/14/2011 MUÑIZ DO, PAIGE K 278.02 OVERWEIGHT 04/14/2011 MUÑIZ DO, PAIGE K 278.02 OVERWEIGHT 04/14/2011 MUÑIZ DO, PAIGE K 278.02 OVERWEIGHT 04/14/2011 MUÑIZ DO, PAIGE K 278.02 OVERWEIGHT 04/14/2011 278.02 OVERWEIGHT 04/14/2011 NAOMI VACA APRN 278.02 OVERWEIGHT 04/14/2011 GLENROY TELEPHONE REPAIRER, RAYMUNDO R 278.02 OVERWEIGHT 04/14/2011 GLENROY TELEPHONE REPAIRER, RAYMUNDO R 278.02 OVERWEIGHT 04/14/2011 GLENROY TELEPHONE REPAIRER, RAYMUNDO R 278.02 OVERWEIGHT 04/14/2011 GLENROY TELEPHONE REPAIRER, RAYMUNDO R 278.02 OVERWEIGHT 04/14/2011 GLENROY TELEPHONE REPAIRER, RAYMUNDO R 278.02 OVERWEIGHT 04/14/2011 MUÑIZ DO, PAIGE K 278.02 OVERWEIGHT 04/14/2011 GLENROY TELEPHONE REPAIRER, RAYMUNDO R 278.02 OVERWEIGHT 06/28/2011 MUÑIZ DO, PAIGE K 493.90 ASTHMA UNSPECIFIED 06/28/2011 MUÑIZ DO, PAIGE K 493.90 ASTHMA UNSPECIFIED 06/28/2011 MUÑIZ DO, PAIGE K 493.90 ASTHMA UNSPECIFIED 06/28/2011 MUÑIZ DO, PAIGE K 493.90 ASTHMA UNSPECIFIED 06/28/2011 493.90 ASTHMA UNSPECIFIED 06/28/2011 NAOMI VACA APRN 493.90 ASTHMA UNSPECIFIED 06/28/2011 GLENROY TELEPHONE REPAIRER, RAYMUNDO R 493.90 ASTHMA UNSPECIFIED 06/28/2011 GLENROY TELEPHONE REPAIRER, RAYMUNDO R 493.90 ASTHMA UNSPECIFIED 06/28/2011 GLENROY TELEPHONE REPAIRER, RAYMUNDO R 493.90 ASTHMA UNSPECIFIED 06/28/2011 GLENROY TELEPHONE REPAIRER, RAYMUNDO R 493.90 ASTHMA UNSPECIFIED 06/28/2011 GLENROY SOMMERSN, RAYMUNDO R 493.90 ASTHMA UNSPECIFIED 06/28/2011 MUÑIZ DO PAIGE K 493.90 ASTHMA UNSPECIFIED 06/28/2011 GLENROY TELEPHONE REPAIRER, RAYMUNDO R 493.90 ASTHMA UNSPECIFIED 06/30/2011 Ot V57.1 PHYSICAL THERAPY NEC 06/30/2011 Ot V58.78 AFTERCARE POST SURGERY MUSCULOSKELETAL S 06/26/2012 MUÑIZ DO, PAIGE K 530.81 GERD 06/26/2012 MUÑIZ DO, PAIGE K 780.52 INSOMNIA UNSPECIFIED 06/26/2012 MUÑIZ DO, PAIGE K 796.2 ELEVATED BLOOD PRESSURE READING WITHOUT DIAGNOSIS OF HYPERTENSION 06/26/2012 MUÑIZ DO, PAIGE K 530.81 GERD 06/26/2012 MUÑIZ DO, PAIGE K 780.52 INSOMNIA UNSPECIFIED 06/26/2012 MUÑIZ DO, PAIGE K 796.2 ELEVATED BLOOD PRESSURE READING WITHOUT DIAGNOSIS OF HYPERTENSION 06/26/2012 MUÑIZ DO, PAIGE K 530.81 GERD 06/26/2012 MUÑIZ DO, PAIGE K 780.52 INSOMNIA UNSPECIFIED 06/26/2012 MUÑIZ DO, PAIGE K 796.2 ELEVATED BLOOD PRESSURE READING WITHOUT DIAGNOSIS OF HYPERTENSION 06/26/2012 MUÑIZ DO, PAIGE K 530.81 GERD 06/26/2012 MUÑIZ DO, PAIGE K 780.52 INSOMNIA UNSPECIFIED 06/26/2012 MUÑIZ DO, PAIGE K 796.2 ELEVATED BLOOD PRESSURE READING WITHOUT DIAGNOSIS OF HYPERTENSION 06/26/2012 530.81 GERD 06/26/2012 780.52 INSOMNIA UNSPECIFIED 06/26/2012 796.2 ELEVATED BLOOD PRESSURE READING WITHOUT DIAGNOSIS OF HYPERTENSION 06/26/2012 NAOMI VACA APRN 530.81 GERD 06/26/2012 NAOMI VACA APRN 780.52 INSOMNIA UNSPECIFIED 06/26/2012 NAOMI VACA APRN 796.2 ELEVATED BLOOD PRESSURE READING WITHOUT DIAGNOSIS OF HYPERTENSION 06/26/2012 GLENROY DE OLIVEIRA RAYMUNDO R 530.81 GERD 06/26/2012 GLENROY DE OLIVEIRA, RAYMUNDO R 780.52 INSOMNIA UNSPECIFIED 06/26/2012 GLENROY DE OLIVEIRA RAYMUNDO R 796.2 ELEVATED BLOOD PRESSURE READING WITHOUT DIAGNOSIS OF HYPERTENSION 06/26/2012 GLENROY DE OLIVEIRA RAYMUNDO R 530.81 GERD 06/26/2012 GLENROY DE OLIVEIRA RAYMUNDO R 780.52 INSOMNIA UNSPECIFIED 06/26/2012 GLENROY TELEPHONE REPAIRER, RAYMUNDO R 796.2 ELEVATED BLOOD PRESSURE READING WITHOUT DIAGNOSIS OF HYPERTENSION 06/26/2012 GLENROY TELEPHONE REPAIRER, RAYMUNDO R 530.81 GERD 06/26/2012 GLENROY TELEPHONE REPAIRER, RAYMUNDO R 780.52 INSOMNIA UNSPECIFIED 06/26/2012 GLENROY TELEPHONE REPAIRER, RAYMUNDO R 796.2 ELEVATED BLOOD PRESSURE READING WITHOUT DIAGNOSIS OF HYPERTENSION 06/26/2012 GLENROY TELEPHONE REPAIRER, RAYMUNDO R 530.81 GERD 06/26/2012 GLENROY TELEPHONE REPAIRER, RAYMUNDO R 780.52 INSOMNIA UNSPECIFIED 06/26/2012 GLENROY TELEPHONE REPAIRER, RAYMUNDO R 796.2 ELEVATED BLOOD PRESSURE READING WITHOUT DIAGNOSIS OF HYPERTENSION 06/26/2012 GLENROY TELEPHONE REPAIRER, RAYMUNDO R 530.81 GERD 06/26/2012 GLENROY TELEPHONE REPAIRER, RAYMUNDO R 780.52 INSOMNIA UNSPECIFIED 06/26/2012 GLENROY TELEPHONE REPAIRER, RAYMUNDO R 796.2 ELEVATED BLOOD PRESSURE READING WITHOUT DIAGNOSIS OF HYPERTENSION 06/26/2012 MUÑIZ DO, PAIGE K 530.81 GERD 06/26/2012 MUÑIZ DO, PAIGE K 780.52 INSOMNIA UNSPECIFIED 06/26/2012 MUÑIZ DO, PAIGE K 796.2 ELEVATED BLOOD PRESSURE READING WITHOUT DIAGNOSIS OF HYPERTENSION 06/26/2012 GLENROY TELEPHONE REPAIRER, RAYMUNDO R 530.81 GERD 06/26/2012 GLENROY TELEPHONE REPAIRER, RAYMUNDO R 780.52 INSOMNIA UNSPECIFIED 06/26/2012 GLENROY TELEPHONE REPAIRER, RAYMUNDO R 796.2 ELEVATED BLOOD PRESSURE READING WITHOUT DIAGNOSIS OF HYPERTENSION 07/12/2012 MUÑIZ DO, PAIGE K 401.1 HYPERTENSION, BENIGN ESSENTIAL 07/12/2012 MUÑIZ DO, PAIGE K 780.79 fatigue 07/12/2012 MUÑIZ DO, PAIGE K 401.1 HYPERTENSION, BENIGN ESSENTIAL 07/12/2012 MUÑIZ DO, PAIGE K 780.79 fatigue 07/12/2012 MUÑIZ DO, PAIGE K 401.1 HYPERTENSION, BENIGN ESSENTIAL 07/12/2012 MUÑIZ DO, PAIGE K 780.79 fatigue 07/12/2012 MUÑIZ DO, PAIGE K 401.1 HYPERTENSION, BENIGN ESSENTIAL 07/12/2012 MUÑIZ DO, PAIGE K 780.79 fatigue 07/12/2012 401.1 HYPERTENSION, BENIGN ESSENTIAL 07/12/2012 780.79 fatigue 07/12/2012 NAOMI VACA APRN 401.1 HYPERTENSION, BENIGN ESSENTIAL 07/12/2012 NAOMI VACA APRN 780.79 fatigue 07/12/2012 GLENROY TELEPHONE REPAIRER, RAYMUNDO R 401.1 HYPERTENSION, BENIGN ESSENTIAL 07/12/2012 GLENROY TELEPHONE REPAIRER, RAYMUNDO R 780.79 fatigue 07/12/2012 GLENROY TELEPHONE REPAIRER, RAYMUNDO R 401.1 HYPERTENSION, BENIGN ESSENTIAL 07/12/2012 GLENROY TELEPHONE REPAIRER, RAYMUNDO R 780.79 fatigue 07/12/2012 GLENROY TELEPHONE REPAIRER, RAYMUNDO R 401.1 HYPERTENSION, BENIGN ESSENTIAL 07/12/2012 GLENROY TELEPHONE REPAIRER, RAYMUNDO R 780.79 fatigue 07/12/2012 GLENROY TELEPHONE REPAIRER, RAYMUNDO R 401.1 HYPERTENSION, BENIGN ESSENTIAL 07/12/2012 GLENROY TELEPHONE REPAIRER, RAYMUNDO R 780.79 fatigue 07/12/2012 GLENROY TELEPHONE REPAIRER, RAYMUNDO R 401.1 HYPERTENSION, BENIGN ESSENTIAL 07/12/2012 GLENROY TELEPHONE REPAIRER, RAYMUNDO R 780.79 fatigue 07/12/2012 MUÑIZ DO, PAIGE K 401.1 HYPERTENSION, BENIGN ESSENTIAL 07/12/2012 MUÑIZ DO, PAIGE K 780.79 fatigue 07/12/2012 GLENROY TELEPHONE REPAIRER, RAYMUNDO R 401.1 HYPERTENSION, BENIGN ESSENTIAL 07/12/2012 GLENROY TELEPHONE REPAIRER, RAYMUNDO R 780.79 fatigue 07/28/2012 Ot 401.9 HYPERTENSION NOS 07/28/2012 Ot 599.0 URIN TRACT INFECTION NOS 07/28/2012 Ot 784.0 HEADACHE 08/08/2012 MUÑIZ DO, PAIGE K 272.1 HYPERTRIGLYCERIDEMIA 08/08/2012 MUÑIZ DO, PAIGE K 272.1 HYPERTRIGLYCERIDEMIA 08/08/2012 MUÑIZ DO, PAIGE K 272.1 HYPERTRIGLYCERIDEMIA 08/08/2012 MUÑIZ DO, PAIGE K 272.1 HYPERTRIGLYCERIDEMIA 08/08/2012 272.1 HYPERTRIGLYCERIDEMIA 08/08/2012 NAOMI VACA APRN 272.1 HYPERTRIGLYCERIDEMIA 08/08/2012 GLENROY TELEPHONE REPAIRER, RAYMUNDO R 272.1 HYPERTRIGLYCERIDEMIA 08/08/2012 GLENROY TELEPHONE REPAIRER, RAYMUNDO R 272.1 HYPERTRIGLYCERIDEMIA 08/08/2012 GLENROY TELEPHONE REPAIRER, RAYMUNDO R 272.1 HYPERTRIGLYCERIDEMIA 08/08/2012 GLENROY TELEPHONE REPAIRER, RAYMUNDO R 272.1 HYPERTRIGLYCERIDEMIA 08/08/2012 GLENROY TELEPHONE REPAIRER, RAYMUNDO R 272.1 HYPERTRIGLYCERIDEMIA 08/08/2012 MUÑIZ DO, PAIGE K 272.1 HYPERTRIGLYCERIDEMIA 08/08/2012 GLENROY TELEPHONE REPAIRER, RAYMUNDO R 272.1 HYPERTRIGLYCERIDEMIA 09/06/2012 MUÑIZ DO, PAIGE K 786.2 COUGH 09/06/2012 MUÑIZ DO, PAIGE K 786.2 COUGH 09/06/2012 MARY KAY PALACIOS, PAIGE K 786.2 COUGH 09/06/2012 786.2 COUGH 09/06/2012 NAOMI VACA APRN 786.2 COUGH 09/06/2012 GLENROY TELEPHONE REPAIRER, RAYMUNDO R 786.2 COUGH 09/06/2012 GLENROY TELEPHONE REPAIRER, RAYMUNDO R 786.2 COUGH 09/06/2012 GLENROY TELEPHONE REPAIRER, RAYMUNDO R 786.2 COUGH 09/06/2012 GLENROY TELEPHONE REPAIRER, RAYMUNDO R 786.2 COUGH 09/06/2012 GLENROY TELEPHONE REPAIRER, RAYMUNDO R 786.2 COUGH 09/06/2012 MARY KAY PALACIOS, PAIGE K 786.2 COUGH 09/06/2012 GLENROY SOMMERSN, RAYMUNDO R 786.2 COUGH 03/26/2013 TERRY CURRY Ot 346.90 MIGRAINE UNSPECIFIED W/O INTRACT MGRN W / 03/26/2013 TERRY CURRY Ot 599.0 URIN TRACT INFECTION NOS 03/26/2013 TERRY CURRY Ot 784.0 HEADACHE 10/28/2013 AMBIKA AVILEZ, ANTHONY Abdullahi Ot 736.70 ACQ ANKLE-FOOT DEF NOS 10/28/2013 ANTHONY APPLE MD Ot V57.1 PHYSICAL THERAPY NEC 10/28/2013 ANTHONY APPLE MD Ot V58.78 AFTERCARE POST SURGERY MUSCULOSKELETAL S 01/10/2014 GLENROY DE OLIVEIRA RAYMUNDO R V72.84 PRE-OPERATIVE EXAM 01/10/2014 ALENA TIM APRNINA R V72.84 PRE-OPERATIVE EXAM 01/10/2014 GLENROY DE OLIVEIRA RAYMUNDO R V72.84 PRE-OPERATIVE EXAM 01/10/2014 MARY KAY KATYAA K V72.84 PRE-OPERATIVE EXAM 01/10/2014 GLENROY DE OLIVEIRA RAYMUNDO R V72.84 PRE-OPERATIVE EXAM 04/17/2014 ALYSSA MORALES MD Ot 038.9 SEPTICEMIA NOS 04/17/2014 ALYSSA MORALES MD Ot 041.49 OTHER AND UNSPECIFIED ESCHERICHIA COLI [ 04/17/2014 ALYSSA MORALES MD Ot 401.9 HYPERTENSION NOS 04/17/2014 ALYSSA MORALES MD Ot 493.90 ASTHMA, UNSPECIFIED 04/17/2014 ALYSSA MORALES MD Ot 530.81 ESOPHAGEAL REFLUX 04/17/2014 ALYSSA MORALES MD Ot 596.54 NEUROGENIC BLADDER, NOT OTHERWISE SPECIF 04/17/2014 ALYSSA MORALES MD Ot 599.0 URIN TRACT INFECTION NOS 04/17/2014 ALYSSA MORALES MD Ot 741.90 SPINA BIFIDA 04/17/2014 ALYSSA MORALES MD Ot 995.91 SEPSIS 04/17/2014 ALYSSA MORALES MD Ot V45.2 VENTRICULAR SHUNT STATUS 04/30/2015 TERRY CURRY Ot 916.6 FOREIGN BODY HIP/LEG 04/30/2015 TERRY CURRY Ot E000.8 OTHER EXTERNAL CAUSE STATUS 04/30/2015 TERRY CURRY Ot E849.6 ACCIDENT IN PUBLIC BLDG 04/30/2015 TERRY CURRY Ot E920.8 ACC-CUTTING INSTRUM NEC 04/30/2015 TERRY CURRY Ot V06.1 [id number], COMBINED [ 05/07/2015 ELIE RANKIN DO Ot V58.32 ENCOUNTER FOR REMOVAL OF SUTURES 05/12/2015 ELIE RANKIN DO Ot V58.32 05/13/2015 ELIE RANKIN DO Ot V58.32 ENCOUNTER FOR REMOVAL OF SUTURES 06/28/2015 JOY POLANCO MD Ot 787.20 DYSPHAGIA, UNSPECIFIED 04/15/2016 Ot 730.27 04/15/2016 Ot 790.29 OTHER ABNORMAL GLUCOSE 04/15/2016 Ot V18.0 FAM HX-DIABETES MELLITUS 04/15/2016 KENDY INGRAM DO Ot M54.5 LOW BACK PAIN 04/15/2016 KENDY INGRAM DO Ot N39.0 URINARY TRACT INFECTION, SITE NOT SPECIF 04/18/2016 KENDY INGRAM DO Ot M54.5 LOW BACK PAIN 04/18/2016 KENDY INGRAM DO Ot N39.0 URINARY TRACT INFECTION, SITE NOT SPECIF 11/03/2016 Ot 730.27 11/09/2016 SHIVAM MAGDALENO APRN Ot E04.9 NONTOXIC GOITER, UNSPECIFIED 11/15/2016 SHIVAM MAGDALENO APRN Ot E04.9 NONTOXIC GOITER, UNSPECIFIED 11/25/2016 SHIVAM MAGDALENO APRN Ot E07.89 OTHER SPECIFIED DISORDERS OF THYROID 11/26/2016 SHIVAM MAGDALENO R TELEPHONE REPAIRER Ot E07.89 OTHER SPECIFIED DISORDERS OF THYROID 11/29/2016 MAGDALENO SHIVAM R TELEPHONE REPAIRER Ot E07.89 OTHER SPECIFIED DISORDERS OF THYROID 11/30/2016 MAGDALENO SHIVAM R TELEPHONE REPAIRER Ot E07.89 OTHER SPECIFIED DISORDERS OF THYROID 11/30/2016 MAGDALENO SHIVAM R TELEPHONE REPAIRER Ot E07.89 OTHER SPECIFIED DISORDERS OF THYROID 12/05/2016 SHIVAM MAGDALENO R TELEPHONE REPAIRER Ot E07.89 OTHER SPECIFIED DISORDERS OF THYROID 12/07/2016 MAGDALENO SHIVAM R TELEPHONE REPAIRER Ot E07.89 OTHER SPECIFIED DISORDERS OF THYROID 12/13/2016 MAGDALENO SHIVAM R TELEPHONE REPAIRER Ot E07.89 OTHER SPECIFIED DISORDERS OF THYROID 12/19/2016 Ot 730.27 12/19/2016 LETY MAGDALENOELE R TELEPHONE REPAIRER Ot E04.9 NONTOXIC GOITER, UNSPECIFIED 12/19/2016 LETY MAGDALENOELE R TELEPHONE REPAIRER Ot E07.89 OTHER SPECIFIED DISORDERS OF THYROID 12/19/2016 LETY MAGDALENOELE R TELEPHONE REPAIRER Ot E07.89 OTHER SPECIFIED DISORDERS OF THYROID 12/23/2016 RASTA SHIVAM R TELEPHONE REPAIRER Ot E07.89 OTHER SPECIFIED DISORDERS OF THYROID 12/26/2016 MADL, JAMEEL L RAM PRESS OPERATOR Ot M79.671 PAIN IN RIGHT FOOT 12/26/2016 MADL, JAMEEL L RAM PRESS OPERATOR Ot M79.672 PAIN IN LEFT FOOT 12/26/2016 MADL, JAMEEL L RAM PRESS OPERATOR Ot 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 12/27/2016 MADL, JAMEEL L RAM PRESS OPERATOR Ot M79.671 PAIN IN RIGHT FOOT 12/27/2016 MADL, JAMEEL L RAM PRESS OPERATOR Ot M79.672 PAIN IN LEFT FOOT 12/27/2016 MADL, JAMEEL L RAM PRESS OPERATOR Ot 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 12/27/2016 MADL, JAMEEL L RAM PRESS OPERATOR Ot M79.671 PAIN IN RIGHT FOOT 12/27/2016 MADL, JAMEEL L RAM PRESS OPERATOR Ot M79.672 PAIN IN LEFT FOOT 12/27/2016 MADL, JAMEEL L RAM PRESS OPERATOR Ot 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 12/30/2016 JOVANNILJAMEEL RAM PRESS OPERATOR Ot M79.671 PAIN IN RIGHT FOOT 12/30/2016 MADL, JAMEEL [place] RAM PRESS OPERATOR Ot M79.672 PAIN IN LEFT FOOT 12/30/2016 MADL, JAMEEL L RAM PRESS OPERATOR Ot 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 12/30/2016 MADLJAMEEL RAM PRESS OPERATOR Ot M79.671 PAIN IN RIGHT FOOT 12/30/2016 MADL, JAMEEL L RAM PRESS OPERATOR Ot M79.672 PAIN IN LEFT FOOT 12/30/2016 MADL, JAMEEL Chowdhury RAM PRESS OPERATOR Ot 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 12/30/2016 SYED MEREDITH TELEPHONE REPAIRER Ot 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, 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 12/30/2016 SYED MEREDITH TELEPHONE REPAIRER Ot 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, 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 12/30/2016 SYED MEREDITH TELEPHONE REPAIRER Ot 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, 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 12/30/2016 SYED MEREDITH APRN Ot 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, 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 01/11/2017 SYED MEREDITH TELEPHONE REPAIRER Ot 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, 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 01/12/2017 JAMEEL BRIONES RAM PRESS OPERATOR Ot M79.671 PAIN IN RIGHT FOOT 01/12/2017 JOVANNILJAMEEL RAM PRESS OPERATOR Ot M79.672 PAIN IN LEFT FOOT 01/12/2017 JOVANNILJAMEEL RAM PRESS OPERATOR Ot 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 01/21/2017 PERFECTO BYRNE APRN Ot I10 ESSENTIAL (PRIMARY) HYPERTENSION 01/21/2017 PERFECTO BYRNE APRN Ot N31.9 NEUROMUSCULAR DYSFUNCTION OF BLADDER, UN 01/21/2017 PERFECTO BYRNE APRN Ot N39.0 URINARY TRACT INFECTION, SITE NOT SPECIF 01/21/2017 PERFECTO BYRNE APRN Ot Q05.9 SPINA BIFIDA, UNSPECIFIED 01/21/2017 PERFECTO BYRNE APRN Ot R35.0 FREQUENCY OF MICTURITION 01/21/2017 PERFECTO BYRNE APRN Ot S90.821A BLISTER (NONTHERMAL), RIGHT FOOT, INITIA 01/21/2017 PERFECTO BYRNE APRN Ot S90.822A BLISTER (NONTHERMAL), LEFT FOOT, INITIAL 01/21/2017 PERFECTO BYRNE APRN Ot Z96.0 PRESENCE OF UROGENITAL IMPLANTS 01/21/2017 PERFECTO BRYNE APRN Ot Z98.890 OTHER SPECIFIED POSTPROCEDURAL STATES 01/23/2017 MADL, JAMEEL L RAM PRESS OPERATOR Ot M79.671 PAIN IN RIGHT FOOT 01/23/2017 MADL, JAMEEL L RAM PRESS OPERATOR Ot M79.672 PAIN IN LEFT FOOT 01/23/2017 MADL, JAMEEL L RAM PRESS OPERATOR Ot 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 01/23/2017 PERFECTO BYRNE APRN Ot I10 ESSENTIAL (PRIMARY) HYPERTENSION 01/23/2017 PERFECTO BYRNE APRN Ot N31.9 NEUROMUSCULAR DYSFUNCTION OF BLADDER, UN 01/23/2017 PERFECTO BYRNE APRN Ot N39.0 URINARY TRACT INFECTION, SITE NOT SPECIF 01/23/2017 PERFECTO BYRNE APRN Ot Q05.9 SPINA BIFIDA, UNSPECIFIED 01/23/2017 PERFECTO BYRNE APRN Ot R35.0 FREQUENCY OF MICTURITION 01/23/2017 PERFECTO BYRNE APRN Ot S90.821A BLISTER (NONTHERMAL), RIGHT FOOT, INITIA 01/23/2017 PERFECTO BYRNE APRN Ot S90.822A BLISTER (NONTHERMAL), LEFT FOOT, INITIAL 01/23/2017 PERFECTO BYRNE APRN Ot Z96.0 PRESENCE OF UROGENITAL IMPLANTS 01/23/2017 PERFECTO BYRNE APRN Ot Z98.890 OTHER SPECIFIED POSTPROCEDURAL STATES 01/27/2017 PERFECTO BYRNE APRN Ot I10 ESSENTIAL (PRIMARY) HYPERTENSION 01/27/2017 PERFECTO BYRNE APRN Ot N31.9 NEUROMUSCULAR DYSFUNCTION OF BLADDER, UN 01/27/2017 PERFECTO BYRNE APRN Ot N39.0 URINARY TRACT INFECTION, SITE NOT SPECIF 01/27/2017 PERFECTO BYRNE APRN Ot Q05.9 SPINA BIFIDA, UNSPECIFIED 01/27/2017 PERFECTO BYRNE APRN Ot R35.0 FREQUENCY OF MICTURITION 01/27/2017 BYRNE, PETER J TELEPHONE REPAIRER Ot S90.821A BLISTER (NONTHERMAL), RIGHT FOOT, INITIA 01/27/2017 PERFECTO BYRNE TELEPHONE REPAIRER Ot S90.822A BLISTER (NONTHERMAL), LEFT FOOT, INITIAL 01/27/2017 PERFECTO BYRNE TELEPHONE REPAIRER Ot Z96.0 PRESENCE OF UROGENITAL IMPLANTS 01/27/2017 PERFECTO BYRNE TELEPHONE REPAIRER Ot Z98.890 OTHER SPECIFIED POSTPROCEDURAL STATES 02/07/2017 MADL, JAMEEL L RAM PRESS OPERATOR Ot M79.671 PAIN IN RIGHT FOOT 02/07/2017 MADL, JAMEEL L RAM PRESS OPERATOR Ot M79.672 PAIN IN LEFT FOOT 02/07/2017 MADL, JAMEEL L RAM PRESS OPERATOR Ot 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 03/19/2017 TERRY CURRY Ot I10 ESSENTIAL (PRIMARY) HYPERTENSION 03/19/2017 TERRY CURRY Ot J45.909 UNSPECIFIED ASTHMA, UNCOMPLICATED 03/19/2017 TERRY CURRY Ot R19.7 DIARRHEA, UNSPECIFIED 03/21/2017 TERRY CURRY Ot I10 ESSENTIAL (PRIMARY) HYPERTENSION 03/21/2017 TERRY CURRY Ot J45.909 UNSPECIFIED ASTHMA, UNCOMPLICATED 03/21/2017 TERRY CURRY Ot R19.7 DIARRHEA, UNSPECIFIED Procedures Code Description [place] [address] ROUTINE VENIPUNCTURE 11/06/2012 62062 BMP 11/06/2012 13411 UA LONG DIP 11/27 44542 CULTURE URINE 61199 UA W/ CULTURE IF INDICATED 01/10/2014 45747 CULTURE URINE 16024 ROUTINE VENIPUNCTURE 01/20/2014 02298 UA W/ CULTURE IF INDICATED 01/20/2014 33680 CBC 01/20/2014 35585 CMP 01/20/2014 01672 LIPID PANEL 01/20 [id number] GFR CALC (RESULT ONLY) 01/20/2014 36122 TSH 01/20/2014 25945 CULTURE URINE Results Test Result Range Complete urinalysis with reflex to culture - 01/21/17 17:49 Urine color determination YELLOW NRG Urine clarity determination VERY CLOUDY NRG Urine pH measurement by test strip 7 5- 9 Specific gravity of urine by test strip 1.010 1.016-1.022 Urine protein assay by test strip, semi-quantitative 3+ NEGATIVE Urine glucose detection by automated test strip NEGATIVE NEGATIVE Erythrocytes detection in urine sediment by light microscopy 5+ NEGATIVE Urine ketones detection by automated test strip 3+ NEGATIVE Urine nitrite detection by test strip POSITIVE NEGATIVE Urine total bilirubin detection by test strip NEGATIVE NEGATIVE Urine urobilinogen measurement by automated test strip (mass/volume) NORMAL NORMAL Urine leukocyte esterase detection by dipstick 3+ NEGATIVE Automated urine sediment erythrocyte count by microscopy (number/high power field) [HPF] NRG Automated urine sediment leukocyte count by microscopy (number/high power field ) TNTC NRG Bacteria detection in urine sediment by light microscopy LARGE NRG Squamous epithelial cells detection in urine sediment by light microscopy NONE NRG Crystals detection in urine sediment by light microscopy NONE NRG Casts detection in urine sediment by light microscopy NONE NRG Mucus detection in urine sediment by light microscopy NEGATIVE NRG Complete urinalysis with reflex to culture YES NRG Bacterial urine culture - 01/21/17 17:49 Bacterial urine culture [id number] NRG COLONY COUNT >100,000/ML NRG FTX;REPORTABLE SENSITIVITY REPORTED AT 1251, 4-24-17 [facility] Bacterial susceptibility panel - 01/21/17 17:49 Gentamicin susceptibility test by minimum inhibitory concentration <= NRG Trimethoprim/sulfamethoxazole susceptibility test by minimum inhibitoryconcentration <= NRG Ampicillin susceptibility test by minimum inhibitory concentration >= NRG Tobramycin susceptibility test by minimum inhibitory concentration <= NRG Cefazolin susceptibility test by minimum inhibitory concentration <= NRG Ceftriaxone susceptibility test by minimum inhibitory concentration <= NRG Ampicillin/sulbactam susceptibility test by minimum inhibitory concentration 16 NRG Piperacillin/tazobactam susceptibility test by minimum inhibitory concentration <= NRG Ciprofloxacin susceptibility test by minimum inhibitory concentration <= NRG Meropenem susceptibility test by minimum inhibitory concentration <= NRG Nitrofurantoin susceptibility test by minimum inhibitory concentration <= NRG Aztreonam susceptibility test by minimum inhibitory concentration <= NRG Extended spectrum beta lactamase (ESBL) producing bacteria susceptibility test by minimum inhibitory concentration - [facility] Complete urinalysis with reflex to culture - 03/18/17 22:20 Urine color determination YELLOW NRG Urine clarity determination CLEAR NRG Urine pH measurement by test strip 6 5- 9 Specific gravity of urine by test strip 1.015 1.016-1.022 Urine protein assay by test strip, semi-quantitative 1+ NEGATIVE Urine glucose detection by automated test strip NEGATIVE NEGATIVE Erythrocytes detection in urine sediment by light microscopy 2+ NEGATIVE Urine ketones detection by automated test strip NEGATIVE NEGATIVE Urine nitrite detection by test strip NEGATIVE NEGATIVE Urine total bilirubin detection by test strip NEGATIVE NEGATIVE Urine urobilinogen measurement by automated test strip (mass/volume) NORMAL NORMAL Urine leukocyte esterase detection by dipstick NEGATIVE NEGATIVE Automated urine sediment erythrocyte count by microscopy (number/high power field) NONE NRG Automated urine sediment leukocyte count by microscopy (number/high power field ) [HPF] NRG Bacteria detection in urine sediment by light microscopy NEGATIVE NRG Squamous epithelial cells detection in urine sediment by light microscopy 0-5 NRG Crystals detection in urine sediment by light microscopy PRESENT NRG Casts detection in urine sediment by light microscopy NONE NRG Mucus detection in urine sediment by light microscopy NEGATIVE NRG Complete urinalysis with reflex to culture NO NRG Amorphous sediment detection in urine sediment by light microscopy RARE RONALD URATES NRG Complete blood count (CBC) with automated white blood cell (WBC) differential - 03/18/17 22:29 Blood leukocytes automated count (number/volume) 12.7 10*3/ uL 4.3-11.0 Blood erythrocytes automated count (number/volume) 5.63 10*6 /uL 4.35-5.85 Venous blood hemoglobin measurement (mass/volume) 13.8 g/dL 11.5-16.0 Blood hematocrit (volume fraction) 43 % 35-52 Automated erythrocyte mean corpuscular volume 76 [foz_us] 80-99 Automated erythrocyte mean corpuscular hemoglobin (mass per erythrocyte) 25 pg 25-34 Automated erythrocyte mean corpuscular hemoglobin concentration measurement ( mass/volume) 33 g/dL 32-36 Automated erythrocyte distribution width ratio 19.0 % 10.0-14.5 Automated blood platelet count (count/volume) 373 10*3/uL 130-400 Automated blood platelet mean volume measurement 10.6 [foz_ us] 7.4-10.4 Automated blood neutrophils/100 leukocytes 61 % 42-75 Automated blood lymphocytes/100 leukocytes 28 % 12-44 Blood monocytes/100 leukocytes 7 % 0-12 Automated blood eosinophils/100 leukocytes 3 % 0-10 Automated blood basophils/100 leukocytes 0 % 0-10 Blood neutrophils automated count (number/volume) 7.8 10*3 1.8-7.8 Blood lymphocytes automated count (number/volume) 3.6 10*3 1.0-4.0 Blood monocytes automated count (number/volume) 0.9 10*3 0.0-1.0 Automated eosinophil count 0.4 10*3/uL 0.0-0.3 Automated blood basophil count (count/volume) 0.0 10*3/uL 0.0-0.1 Comprehensive metabolic panel - 03/18/17 22:29 Serum or plasma sodium measurement (moles/volume) 142 mmol/ L 135-145 Serum or plasma potassium measurement (moles/volume) 3.9 mmol/L 3.6-5.0 Serum or plasma chloride measurement (moles/volume) 109 mmol /L 98-107 Carbon dioxide 21 mmol/L 21-32 Serum or plasma anion gap determination (moles/volume) 12 mmol/L 5-14 Serum or plasma urea nitrogen measurement (mass/volume) 9 mg /dL 7-18 Serum or plasma creatinine measurement (mass/volume) 0.85 mg /dL 0.60-1.30 Serum or plasma urea nitrogen/creatinine mass ratio 11 0-20 Serum or plasma creatinine measurement with calculation of estimated glomerular filtration rate > NRG Serum or plasma glucose measurement (mass/volume) 90 mg/dL 70-105 Serum or plasma calcium measurement (mass/volume) 10.2 mg/ dL 8.5-10.1 Serum or plasma total bilirubin measurement (mass/volume) 0.3 mg/dL 0.1-1.0 Serum or plasma alkaline phosphatase measurement (enzymatic activity/volume) 95 U/L 40-136 Serum or plasma aspartate aminotransferase measurement (enzymatic activity/ volume) 25 U/L 5-34 Serum or plasma alanine aminotransferase measurement (enzymatic activity/volume ) 19 U/L 0-55 Serum or plasma protein measurement (mass/volume) 8.1 g/dL 6.4-8.2 Serum or plasma albumin measurement (mass/volume) 4.5 g/dL 3.2-4.5 Stool leukocytes detection by light microscopy - 03/18/17 23:38 FECAL WBC RESULTS OCCASIONAL WBC OBSERVED ON DIRECT SMEAR NRG FECAL NOTE FECAL LEUKOCYTES MAY BE INTERMITTENTLY PRESENT OR NRG FECAL NOTE UNEVENLY DISTRIBUTED IN STOOL SPECIMENS, AND WBC NRG FECAL NOTE MORPHOLOGY DEGRADES DURING TRANSPORT NRG FECAL NOTE NOTE: NRG C DIFFICILE AG + TOXIN A/B. - 03/18/17 23:38 RESULTS NEGATIVE FOR ANTIGEN AND TOXIN A/B NRG Stool bacteria identification by culture - 03/18/17 23:38 Stool bacteria identification by culture N2 NRG [id number] - 03/18/17 23:38 [id number] FOOTNOTE NRG Complete urinalysis with reflex to culture - 04/08/17 14:54 Urine color determination YELLOW NRG Urine clarity determination CLEAR NRG Urine pH measurement by test strip 6.5 5 -9 Specific gravity of urine by test strip 1.010 1.016-1.022 Urine protein assay by test strip, semi-quantitative 1+ NEGATIVE Urine glucose detection by automated test strip NEGATIVE NEGATIVE Erythrocytes detection in urine sediment by light microscopy 1+ NEGATIVE Urine ketones detection by automated test strip NEGATIVE NEGATIVE Urine nitrite detection by test strip POSITIVE NEGATIVE Urine total bilirubin detection by test strip NEGATIVE NEGATIVE Urine urobilinogen measurement by automated test strip (mass/volume) NORMAL NORMAL Urine leukocyte esterase detection by dipstick 3+ NEGATIVE Automated urine sediment erythrocyte count by microscopy (number/high power field) [HPF] NRG Automated urine sediment leukocyte count by microscopy (number/high power field ) [HPF] NRG Bacteria detection in urine sediment by light microscopy MODERATE NRG Squamous epithelial cells detection in urine sediment by light microscopy 10-25 NRG Crystals detection in urine sediment by light microscopy NONE NRG Casts detection in urine sediment by light microscopy NONE NRG Mucus detection in urine sediment by light microscopy NEGATIVE NRG Complete urinalysis with reflex to culture YES NRG Urine beta human chorionic gonadotropin (hCG) measurement - 04/08/17 14:54 Urine beta human chorionic gonadotropin (hCG) measurement NEGATIVE NEGATIVE Complete blood count (CBC) with automated white blood cell (WBC) differential - 04/08/17 15:05 Blood leukocytes automated count (number/volume) 10.0 10*3/ uL 4.3-11.0 Blood erythrocytes automated count (number/volume) 5.78 10*6 /uL 4.35-5.85 Venous blood hemoglobin measurement (mass/volume) 14.3 g/dL 11.5-16.0 Blood hematocrit (volume fraction) 44 % 35-52 Automated erythrocyte mean corpuscular volume 77 [foz_us] 80-99 Automated erythrocyte mean corpuscular hemoglobin (mass per erythrocyte) 25 pg 25-34 Automated erythrocyte mean corpuscular hemoglobin concentration measurement ( mass/volume) 32 g/dL 32-36 Automated erythrocyte distribution width ratio 18.5 % 10.0-14.5 Automated blood platelet count (count/volume) 323 10*3/uL 130-400 Automated blood platelet mean volume measurement 10.4 [foz_ us] 7.4-10.4 Automated blood neutrophils/100 leukocytes 76 % 42-75 Automated blood lymphocytes/100 leukocytes 13 % 12-44 Blood monocytes/100 leukocytes 8 % 0-12 Automated blood eosinophils/100 leukocytes 2 % 0-10 Automated blood basophils/100 leukocytes 0 % 0-10 Blood neutrophils automated count (number/volume) 7.7 10*3 1.8-7.8 Blood lymphocytes automated count (number/volume) 1.4 10*3 1.0-4.0 Blood monocytes automated count (number/volume) 0.8 10*3 0.0-1.0 Automated eosinophil count 0.2 10*3/uL 0.0-0.3 Automated blood basophil count (count/volume) 0.0 10*3/uL 0.0-0.1 Comprehensive metabolic panel - 04/08/17 15:05 Serum or plasma sodium measurement (moles/volume) 139 mmol/ L 135-145 Serum or plasma potassium measurement (moles/volume) 3.9 mmol/L 3.6-5.0 Serum or plasma chloride measurement (moles/volume) 107 mmol /L 98-107 Carbon dioxide 21 mmol/L 21-32 Serum or plasma anion gap determination (moles/volume) 11 mmol/L 5-14 Serum or plasma urea nitrogen measurement (mass/volume) 8 mg /dL 7-18 Serum or plasma creatinine measurement (mass/volume) 0.74 mg /dL 0.60-1.30 Serum or plasma urea nitrogen/creatinine mass ratio 11 NRG Serum or plasma creatinine measurement with calculation of estimated glomerular filtration rate > NRG Serum or plasma glucose measurement (mass/volume) 87 mg/dL 70-105 Serum or plasma calcium measurement (mass/volume) 9.3 mg/dL 8.5-10.1 Serum or plasma total bilirubin measurement (mass/volume) 0.3 mg/dL 0.1-1.0 Serum or plasma alkaline phosphatase measurement (enzymatic activity/volume) 96 U/L 40-136 Serum or plasma aspartate aminotransferase measurement (enzymatic activity/ volume) 20 U/L 5-34 Serum or plasma alanine aminotransferase measurement (enzymatic activity/volume ) 17 U/L 0-55 Serum or plasma protein measurement (mass/volume) 7.8 g/dL 6.4-8.2 Serum or plasma albumin measurement (mass/volume) 4.3 g/dL 3.2-4.5 Encounters ACCT No. Visit Date/Time Discharge Status Pt. Type Provider Facility Loc./Unit Complaint [id number] 01/20/2015 15:13:00 01/20/2015 23: 59:59 CLS Outpatient RAYMUNDO TIM APRN [id number] 05/07/2014 07:38:00 05/07/2014 23: 59:59 CLS Outpatient PAIGE MUÑIZ DO [id number] 01/20/2014 08:50:00 01/20/2014 23: 59:59 CLS Outpatient RAYMUNDO TIM APRN [id number] 01/10/2014 12:52:00 01/10/2014 23: 59:59 CLS Outpatient RAYMUNDO TIM APRN [id number] 01/10/2014 12:52:00 01/10/2014 23: 59:59 CLS Outpatient RAYMUNDO TIM APRN R [id number] 11/27/2013 13:29:00 11/27/2013 23: 59:59 CLS Outpatient RAYMUNDO TIM APRN R [id number] 11/27/2013 13:29:00 11/27/2013 23: 59:59 CLS Outpatient RAYMUNDO TIM APRN R [id number] 05/03/2013 00:00:00 05/03/2013 23: 59:59 CLS Outpatient NAOMI VACA APRN [id number] 11/06/2012 09:56:00 11/06/2012 23: 59:59 CLS Outpatient PAIGE MUÑIZ DO [id number] 10/09/2012 10:03:00 10/09/2012 23: 59:59 CLS Outpatient PAIGE MUÑIZ DO [id number] 09/06/2012 09:17:00 09/06/2012 23: 59:59 CLS Outpatient PAIGE MUÑ[place] [id number] 08/08/2012 08:41:00 08/08/2012 23: 59:59 CLS Outpatient PAIGE MUÑIZ DO [id number] 01/02/2013 08:51:00 Document Registration
[2017-05-16] MEDS ORDERED: SUCR1TAB36 PO (10:15)
[2017-05-16] MEDS ORDERED: PANT40TA2 PO (10:15)
== END 2017-04-08 19:00 | disposition home or self-care (01) ==
LOC: EDUNIT# 13:00 → ER 13:01
DX: J45.909 Unspecified asthma, uncomplicated; I10 Essential (primary) hypertension; Z87.448 Personal history of other diseases of urinary system; N39.0 Urinary tract infection, site not specified; M86.9 Osteomyelitis, unspecified; Q05.9 Spina bifida, unspecified; K21.9 Gastro-esophageal reflux disease without esophagitis
CPT/HCPCS: 36415; 74177; 80053; 81000; 84703; 85025; 87077; 87088; 87186; 96361; 96374; 96375; 96376

== ENCOUNTER 2017-05-12 05:31 | Outpatient (CLI) | payer MEDICAID ==
[~2017-05-12] VITALS: Ht 167.6 cm; Wt 83.9 kg
[~2017-05-12 05:31] MED LIST changes: +CIPR500T4 PO; +ONDA8TAB13 PO
[2017-05-12] MEDS ORDERED: BACL10TA PO (10:06)
[2017-05-12] MEDS ORDERED: LOPE-145 PO (10:06)
== END 2017-05-12 10:27 ==
LOC: PREOP 05:31
PROVIDERS: ATTEND Surgery
DX: Z01.818 Encounter for other preprocedural examination (principal); R19.7 Diarrhea, unspecified; K21.9 Gastro-esophageal reflux disease without esophagitis

== ENCOUNTER 2017-05-16 08:02 | Day surgery (SDC) | payer MEDICAID ==
[~2017-05-16] VITALS: Ht 167.6 cm; Wt 83.9 kg
[~2017-05-16 08:02] MED LIST changes: +BACL10TA PO; +LOPE-145 PO
--- OUTSIDE RECORDS SUMMARY | 2017-05-16 08:07 | XMS REPORT | Encounter Summary ---
Author [facility] Address Unknown Phone Unavailable Care Team Providers Care Superintendent [employer] Name Role Phone PCP Unavailable Reason for Visit * Reason Comments Vomiting seen twice in past three weeks for same Encounter Details Date Type Department Care Team Description 04/11/2017 Emergency Emergency Dept. Rico Payne MD [address] [facility]. [address] [place] [address] [address] [place] [address] [phone] Social History Tobacco Use Types Packs/Day Years Used Date Never Smoker Smokeless Tobacco: Never Used Alcohol Use Drinks/Week oz/Week Comments No Sex Assigned at Date Recorded Not on file as of this encounter Last Filed Vital Signs Vital Sign Reading Time Taken Blood Pressure 157/87 04/11/2017 6:00 AM CDT Pulse 82 04/11/2017 1:16 AM CDT Temperature 37.3 C (99.1 F) 04/11/2017 1:15 AM CDT Respiratory Rate - - Oxygen Saturation 99% 04/11/2017 6:00 AM CDT Inhaled Oxygen - - Concentration Weight 82.6 kg (182 lb) 04/11/2017 1:15 AM CDT Height - - Body Mass Index 28.51 04/11/2017 1:15 AM CDT in this encounter Functional Status Functional Status Response Date of Assessment Does the patient have a hearing impairment: No 04/11/2017 as of this encounter Discharge Instructions * Trevin Raya MD - 04/11/2017 Formatting of this note may be different from the original. Abdominal Pain Abdominal pain is pain in the stomach or belly area. Everyone has this pain from time to time. In many cases it goes away on its own. But abdominal pain can sometimes be due to a serious problem, such as appendicitis. So its important to know when to seek help. Causes of abdominal pain There are many possible causes of abdominal pain. Common causes in adults include: Constipation, diarrhea, or gas Stomach acid flowing back up into the esophagus (acid reflux or heartburn) Severe acid reflux, called GERD (gastroesophageal reflux disease) A sore in the lining of the stomach or small intestine (peptic ulcer) Inflammation of the gallbladder, liver,or pancreas Gallstones or kidney stones Appendicitis Intestinal blockage An internal organ pushing through a muscle or other tissue (hernia) Urinary tract infections In women, menstrual cramps, fibroids, or endometriosis Inflammation or infection of the intestines Diagnosing the cause of abdominal pain Your healthcare provider will do a physical exam help find the cause of your pain. If needed, tests will be ordered. Belly pain has many possible causes. So it can be hard to find the reason for your pain. Giving details about your pain can help. Tell your provider where and when you feel the pain, and what makes it better or worse. Also let your provider know if you have other symptoms such as: Fever Tiredness Upset stomach (nausea) Vomiting Changes in bathroom habits Treating abdominal pain Some causes of pain need emergency medical treatment right away. These include appendicitis or a bowel blockage. Other problems can be treated with rest, fluids, or medicines. Your healthcare provider can give you specific instructions for treatment or self-care based on what is causing your pain. If you have vomiting or diarrhea,sip water or other clear fluids. When you are ready to eat solid foods again, start with small amounts of dpkb-ci-laqbfj, low-fat foods. These include apple sauce, toast, or crackers. When to seek medical care Call 911or go to the hospital right away if you: Cant pass stool and are vomiting Are vomiting blood or have bloody diarrhea or black, tarry diarrhea Have chest, neck, or shoulder pain Feel like you might pass out Have pain in your shoulder blades with nausea Have sudden, severe belly pain Have new, severepain unlike any you have felt before Have a belly that is rigid, hard, and tender to touch Call your healthcare provider if you have: Pain for more [id number] Bloating for more than 2days Diarrhea for more [id number] A fever of 100.4F (38.0C) or higher, or as directed by your provider Pain that gets worse Weight loss for no reason Continued lack of appetite Blood in your stool How to prevent abdominal pain Here are some tips to help prevent abdominal pain: Eat smaller amounts of food at one time. Avoid greasy, fried, or other high-fat foods. Avoid foods that give you gas. Exercise regularly. Drink plenty of fluids. To help prevent GERD symptoms: Quit smoking. Reduce alcohol and certain foods that increase stomach acid. Avoid aspirin and gvqd-hir-wyzjwkm pain and fever medicines (NSAIDS or nonsteroidal anti-inflammatory drugs), if possible Lose extra weight. Finish eating at least 2 hours before you go to bed or lie down. Raise the head of your bed. Date Last Reviewed: 04/01/201619996721-9114 [employer]. [address] [place] [address]. All rights reserved. This information is not intended as a substitute for professional medical care. Always follow your healthcare professional's instructions. in this encounter Medications at Time of Discharge Medication Sig. Disp. Refills Start Date End Date albuterol (VENTOLIN HFA, Inhale 2 Puffs by mouth PROAIR HFA) 90 every 6 hours as needed. mcg/actuation inhaler ciprofloxacin (CIPRO) 500 Take 500 mg by mouth mg tablet twice daily. losartan(+) (COZAAR) 100 Take 1 Tab by mouth 90 Tab 3 11/12/2014 mg tablet daily. RABEprazole DR (+) Take 20 mg by mouth (ACIPHEX) 20 mg tablet daily. vitamins, multi PED Take 2 Tabs by mouth (GUMMI BEAR MULTIVITAMIN) daily. Chew as of this encounter Plan of Treatment Not on fileas of this encounter Results * CT ABD/PELV W CONTRAST (04/11/2017 8:17 AM) Specimen Performing Laboratory [facility] RESULTS Impressions 1. Small amount of free pelvic fluid, this may be physiologic from a ruptured cyst, or could represent fluid from the JUVENILE [employer]ICER shunt. 2. Cortical irregularity involving the left kidney which is likely secondary to scarring. 3. No gross evidence of acute inflammatory abdominal or pelvic mass or significant adenopathy. 4. JUVENILE [employer]ER shunt tubing as described. Approved by Ernesto Allen M.D. on 04/11/2017 9:05 AM By my electronic signature, I attest that I have personally reviewed the images for this examination and formulated the interpretations and opinions expressed in this report Finalized by Lucho Moura M.D. on 04/11/2017 10:17 AM. Dictated by Ernesto Allen M.D. on 04/11/2017 8:[address] ABDOMEN AND PELVIS Clinical Indication:Female, 26 years old. Abdominal pain Technique:Multiple contiguous axial images were obtained through the abdomen and pelvis following the administration of IV contrast material. Portal venous phase of postcontrast imaging was obtained. Post processing coronal and sagittal reconstruction images were made from the axial images. IV contrast: Isovue-370 Bowel contrast:None Comparison: None FINDINGS: Lower Thorax: Heart is normal in size. Minimal scarring at the left lung base. Ventriculoperitoneal shunt tube can be seen coursing through the right lower chest subcutaneous tissue to the midline, and extends into the intraperitoneal with the tip ending in the right lower quadrant of the abdomen. Liver and Biliary system: The liver is normal in size with no focal lesion. There is no radiopaque gallstones or gallbladder wall thickening. There is no intrahepatic or extrahepatic biliary ductal dilatation. Spleen: Unremarkable. Adrenal Glands and Kidneys: Adrenal glands are unremarkable. There is an incompletely characterized low-density lesion in the upper pole of the right kidney, most likely a small cyst. There is cortical irregularity involving the left kidney, which may represent scarring. There is a 0.9 cm low-density lesion in the upper pole of the left kidney with incomplete characterization, this may represent a cyst. Pancreas and Retroperitoneum: Pancreas is unremarkable. There are few normal size retroperitoneal lymph nodes. No retroperitoneal lymphadenopathy. Aorta and Major Vessels: Unremarkable. Bowel, Mesentery and Peritoneal space: Small and large bowel loops are normal in caliber. No bowel obstruction. No ascites. No free air. Pelvis: Uterus is normal for patient's age. There is small amount free pelvic fluid. Abdominal wall and Osseous Structures: Spina bifida defect is noted starting at L4-L5, extending to the sacrum. No destructive osseous lesion is seen. Procedure Note Interface, Radiant Results - 04/11/2017 10:[address] ABDOMEN AND PELVIS Clinical Indication: Female, 26 years old. Abdominal pain Technique: Multiple contiguous axial images were obtained through the abdomen and pelvis following the administration of IV contrast material. Portal venous phase of postcontrast imaging was obtained. Post processing coronal and sagittal reconstruction images were made from the axial images. IV contrast: Isovue-370 Bowel contrast: None Comparison: None FINDINGS: Lower Thorax: Heart is normal in size. Minimal scarring at the left lung base. Ventriculoperitoneal shunt tube can be seen coursing through the right lower chest subcutaneous tissue to the midline, and extends into the intraperitoneal with the tip ending in the right lower quadrant of the abdomen. Liver and Biliary system: The liver is normal in size with no focal lesion. There is no radiopaque gallstones or gallbladder wall thickening. There is no intrahepatic or extrahepatic biliary ductal dilatation. Spleen: Unremarkable. Adrenal Glands and Kidneys: Adrenal glands are unremarkable. There is an incompletely characterized low-density lesion in the upper pole of the right kidney, most likely a small cyst. There is cortical irregularity involving the left kidney, which may represent scarring. There is a 0.9 cm low-density lesion in the upper pole of the left kidney with incomplete characterization, this may represent a cyst. Pancreas and Retroperitoneum: Pancreas is unremarkable. There are few normal size retroperitoneal lymph nodes. No retroperitoneal lymphadenopathy. Aorta and Major Vessels: Unremarkable. Bowel, Mesentery and Peritoneal space: Small and large bowel loops are normal in caliber. No bowel obstruction. No ascites. No free air. Pelvis: Uterus is normal for patient's age. There is small amount free pelvic fluid. Abdominal wall and Osseous Structures: Spina bifida defect is noted starting at L4-L5, extending to the sacrum. No destructive osseous lesion is seen. IMPRESSION 1. Small amount of free pelvic fluid, this may be physiologic from a ruptured cyst, or could represent fluid from the JUV[employer]ILE [employer] shunt. 2. Cortical irregularity involving the left kidney which is likely secondary to scarring. 3. No gross evidence of acute inflammatory abdominal or pelvic mass or significant adenopathy. 4. J[employer] shunt tubing as described. Approved by Ernesto Allen M.D. on 04/11/2017 9:05 AM By my electronic signature, I attest that I have personally reviewed the images for this examination and formulated the interpretations and opinions expressed in this report Finalized by Lucho Moura M.D. on 04/11/2017 10:17 AM. Dictated by Ernesto Allen M.D. on 04/11/2017 8:25 AM. * US PELVIS NON OB COMP (04/11/2017 6:52 AM) Specimen Performing Laboratory [facility] RESULTS Impressions Normal appearance of the uterus and [...] cul-de-sac. Procedure Note Interface, Radiant Results - 04/11/2017 7:14 AM CDT US TRANSVAGINAL, US PELVIS [...] AM. * US TRANSVAGINAL (04/11/2017 6:52 AM) Specimen Performing Laboratory [facility] RESULTS Impressions Normal appearance of the uterus and [...] cul-de-sac. Procedure Note Interface, Radiant Results - 04/11/2017 7:14 AM CDT US TRANSVAGINAL, US PELVIS [...] Mazariegos M.D. on 04/11/2017 6:50 AM. * CHLAM/NG PCR SWAB (04/11/2017 4:45 AM) Component Value Ref Range CHLAM/NG PCR Source CERVICAL Chlamydia Trachomatis NEG NEG-NEG Probe N.Gonorrhea PCR NEG NEG-NEG Comment: [employer] Gen-Probe APTIMA Combo 2 Assay is a target amplification nucleic acid probe test that utilizes target capture for the in vitro qualitative detection and differentiation of ribosomal RNA from Chlamydia trachomatis (CT) and Neisseria gonorrhoeae (NG). The assay is FDA approved for vaginal, endocervical, male urethral swabs, ThinPrep and male urine. Performance of this test on other specimens has been validated by the Department of Pathology and [facility] at [facility] using the [employer] Gen-Probe Ava System. Specimen Performing Laboratory Cervix [facility] [address] [place] [address] * DIRECT EXAM (WET PREP) (04/11/2017 4:45 AM) Component Value Ref Range Battery Name DIRECT EXAM,WET PREP Specimen Description VAGINAL Special Requests NONE Direct Exam NO YEAST SEEN NO CLUE CELLS SEEN NO TRICHOMONAS SEEN Report Status FINAL 04/11/2017 Specimen Performing Laboratory Vaginal [facility] [address] [place] [address] * URINALYSIS, MICROSCOPIC (04/11/2017 4:28 AM) Component Value Ref Range WBCs,UA 2-10 0 - 2 /HPF RBCs,UA 2-10 0 - 3 /HPF MucousUA TRACE Specimen Performing Laboratory Urine [facility] [address] [place], [place] [id number] * URINALYSIS DIPSTICK (04/11/2017 4:28 AM) Component Value Ref Range Color,UA YELLOW Turbidity,UA CLEAR CLEAR-CLEAR Specific [place]-Urine 1.016 1.003 - 1.035 pH,UA 5.0 5.0 - 8.0 Protein,UA NEG NEG-NEG Glucose,UA NEG NEG-NEG Ketones,UA NEG NEG-NEG Bilirubin,UA NEG NEG-NEG Blood,UA NEG NEG-NEG Urobilinogen,UA NORMAL NORM-NORMAL Nitrite,UA NEG NEG-NEG Leukocytes,UA 1+ (A) NEG-NEG Urine Ascorbic Acid, UA NEG NEG-NEG Specimen Performing Laboratory Urine [facility] [address] [place], [place] [id number] * LIPASE (04/11/2017 2:02 AM) Component Value Ref Range Lipase 8 (L) 11 - 82 U/L Specimen Performing Laboratory [facility] [address] [place] [address] * CBC AND DIFF (04/11/2017 2:02 AM) Component Value Ref Range White Blood Cells 10.0 4.5 - 11.0 K/UL RBC 5.52 (H) 4.0 - 5.0 M/UL Hemoglobin 14.1 12.0 - 15.0 GM/DL Hematocrit 42.9 36 - 45 % MCV 77.7 (L) 80 - 100 FL MCH 25.6 (L) 26 - 34 PG MCHC 32.9 32.0 - 36.0 G/DL RDW 19.0 (H) 11 - 15 % Platelet Count 314 150 - 400 K/UL MPV 9.3 7 - 11 FL Neutrophils 53 41 - 77 % Lymphocytes 31 24 - 44 % Monocytes 9 4 - 12 % Eosinophils 6 (H) 0 - 5 % Basophils 1 0 - 2 % Absolute Neutrophil Count 5.30 1.8 - 7.0 K/UL Absolute Lymph Count 3.10 1.0 - 4.8 K/UL Absolute Monocyte Count 0.90 (H) 0 - 0.80 K/UL Absolute Eosinophil Count 0.60 (H) 0 - 0.45 K/UL Absolute Basophil Count 0.10 0 - 0.20 K/UL Specimen Performing Laboratory [facility] [address] [place] [address] * COMPREHENSIVE METABOLIC PANEL (04/11/2017 2:02 AM) Component Value Ref Range Sodium 138 137 - 147 MMOL/L Potassium 3.8 3.5 - 5.1 MMOL/L Chloride 107 98 - 110 MMOL/L Glucose 79 70 - 100 MG/DL Blood Urea Nitrogen 6 (L) 7 - 25 MG/DL Creatinine 0.82 0.4 - 1.00 MG/DL Calcium 9.4 8.5 - 10.6 MG/DL Total Protein 7.6 6.0 - 8.0 G/DL Total Bilirubin 0.3 0.3 - 1.2 MG/DL Albumin 4.2 3.5 - 5.0 G/DL Alk Phosphatase 76 25 - 110 U/L AST (SGOT) 23 7 - 40 U/L CO2 21 21 - 30 MMOL/L ALT (SGPT) 14 7 - 56 U/L Anion Gap 10 3 - 12 eGFR Non >60 >60 mL/min Comment: The eGFR is not validated for use in drug dosing adjustments. Continue to use estimated creatinine clearance per dosing reference text. Please contact the Clinical Pharmacist for questions. eGFR >60 >60 mL/min Comment: The eGFR is not validated for use in drug dosing adjustments. Continue to use estimated creatinine clearance per dosing reference text. Please contact the Clinical Pharmacist for questions. Specimen Performing Laboratory [facility] [address] [place] [address] in this encounter Visit Diagnoses Diagnosis Abdominal pain, generalized - Primary Nausea and vomiting, intractability of vomiting not specified, unspecified vomiting type Diarrhea, unspecified type Slowing of urinary stream Non-intractable vomiting with nausea, unspecified vomiting type Idiopathic hypertension Unspecified essential hypertension Asthmatic bronchitis, unspecified asthma severity, uncomplicated Heparin allergy Other drug allergy Allergy to radiographic dye Allergy to other foods in this encounter Administered Medications Medication Order MAR Action Action Date Dose Rate Site iopamidol 370 (ISOVUE-370) injection 100 Given 04/11/2017 100 mL mL 08:15 CDT 100 mL, Intravenous, ONCE, 1 dose, e 04/11/17 at 0830, NOTE: This is a HIGH ALERT Medication. loperamide (IMODIUM A-D) capsule 2 mg Given 04/11/2017 2 mg 2 mg, Oral, ONCE, 1 dose, 04/11/17 at 10:11 CDT 1015, GIVE WITH EACH LOOSE STOOL; NOT TO EXCEED 16MG/24HRS ondansetron (ZOFRAN) injection 4 mg Given 04/11/2017 4 mg 4 mg, Intravenous, EVERY 6 HOURS PRN, 08:31 CDT Starting Mon04/11/17 at 0822, Until Mon04/11/17 at 1221, Nausea/Vomiting Injectable sodium chloride 0.9 % infusion Given - New 04/11/2017 1,000 mL 999 mL/hr 1,000 mL, 1,000 mL, Intravenous, at 999 Bag 04:53 CDT mL/hr, ONCE, 1 dose, Mon04/11/17 at 0400 sodium chloride PF 0.9% injection 50 mL Given 04/11/2017 50 mL 50 mL, Intravenous, ONCE, 1 dose, e 08:15 CDT 04/11/17 at 0830, Intra-procedure (IR) in this encounter
[2017-05-16] MEDS ORDERED: LACTATED RINGERS 1,000 ML IV ONE (08:10)
[2017-05-16 08:24] VITALS: BP 141/105
[2017-05-16] MEDS ORDERED: HURRICAINE EXT TUBE (BENZOCAINE) XX ONE (08:30)
[2017-05-16] MEDS ORDERED: LACTATED RINGERS 1,000 ML IV SCH (08:30)
[2017-05-16] MEDS ORDERED: PROPOFOL INJECTION 50 ML IV ONE ×2 (09:21→09:45)
[2017-05-16] MEDS ORDERED: MIDAZOLAM 5 MG/5 ML (VERSED) VIAL ONE (09:21)
[2017-05-16] MEDS ORDERED: KETAMINE HCL 100 MG/ML 5 ML VIAL ONE (09:46)
--- NOTE | 2017-05-16 10:13 | Progress Note-Post Operative ---
Post-Operative Progess Note Surgeon (s)/Safety Physician (s) Surgeon DRAGAN FINLEY DO Safety Physician: na Pre-Operative Diagnosis gerd, dysphagia, change in bowel habits Post-Operative Diagnosis duodenitis, gastritis, normal colon Procedure & Operative Findings Date of Procedure 05/16/17 Procedure Performed/Findings egd c biopsy antrum and body, colonoscopy Anesthesia Type per stummel selector Estimated Blood Loss Estimated blood loss (mL): none Specimens/Packing Specimens Removed antrum, body DRAGAN FINLEY DO May 16, 2017 10:13
[2017-05-16] MEDS ORDERED: SUCR1TAB36 PO (10:15)
[2017-05-16] MEDS ORDERED: PANT40TA2 PO (10:15)
--- NOTE | 2017-05-16 10:15 | Discharge Inst-Simple/Standard ---
Discharge Inst-Standard Discharge Medications New, Converted or Re-Newed RX: Transmitted to Pharmacy Patient Instructions/Follow Up Plan of Care/Instructions/FU: 2 weeks yaya Activity as Tolerated: Yes Discharge Diet: Regular Diet DRAGAN FINLEY DO May 16, 2017 10:15
[2017-05-16 10:35] VITALS: BP 152/88
[2017-05-16 11:15] VITALS: BP 148/98
[2017-05-16 11:20] VITALS: BP 148/98
[2017-05-16] MEDS ORDERED: HURRICAINE EXT TUBE (BENZOCAINE) ONE (15:22)
--- NOTE | 2017-05-16 18:06 | OPERATIVE REPORT ---
DATE OF SERVICE: 05/16/2017 PREOPERATIVE DIAGNOSIS: Gastroesophageal, dysphagia, change in bowel habits. POSTOPERATIVE DIAGNOSIS: Gastritis, duodenitis, normal colon. PROCEDURE: 1. EGD with biopsies of the antrum and body. 2. Colonoscopy. ANESTHESIA: Per INSEAM TRIMMER. ESTIMATED BLOOD LOSS: None. COMPLICATIONS: None. SPECIMENS: Antrum and body. INDICATIONS: The patient is a 26-year-old female who has been having some reflux and dysphagia. She also had change in bowel habits. She understands risks and benefits of procedure and wished to proceed with the procedure. Consent was signed in the chart. PROCEDURE: The patient was taken to the endoscopy suite, placed in left lateral recumbent position. Timeout was performed. Scope was inserted in mouth, down the esophagus, stomach and into the duodenum. There were some slight erythematous changes within the duodenum. The scope was continued to be slowly retracted noting no other polyps, masses or ulcerations. In the stomach there were some slight areas of inflammation and the appearance of possible healing ulcers. Biopsies of the antrum and body were obtained. The scope was retroflexed noting no other pathology except for changes consistent with gastritis. Scope was returned to its normal position, slowly withdrawn back into the distal esophagus. There are no polyps, masses or ulcerations. There were no erythematous changes. Scope was slowly retracted until completely removed. Digital rectal exam was performed. There were some slight laxity of the rectal sphincter tone. The scope was inserted in the rectum and advanced all the way to the cecum with minimal difficulty. Prep was adequate. Scope was then slowly retracted back. There were no polyps, masses or ulcerations within the cecum, ascending, transverse, descending and sigmoid colon. Once in the rectum, it was also retroflexed noting no other pathology. Scope was returned to its normal position, slowly withdrawn until completely removed. The patient tolerated the procedure well without any complications. She was taken to the recovery room in stable condition. RECOMMENDATIONS: The patient will be changed from Nexium to Protonix 40 mg daily and Carafate 1 gram four times a day. We will see how she is doing at approximately 2 to 3 weeks. Job ID: [id number] DocumentID: [id number] Dictated Date: 05/16/2017 10:19:13 [employer] Date: 05/16/2017 10:44:55 Dictated By: DRAGAN FINLEY DO
== END 2017-05-16 11:25 | disposition home or self-care (01) ==
LOC: ENDO 08:02
PROVIDERS: ATTEND Surgery
DX: R19.4 Change in bowel habit (principal); K29.70 Gastritis, unspecified, without bleeding; K29.80 Duodenitis without bleeding; I10 Essential (primary) hypertension; G91.9 Hydrocephalus, unspecified; N28.9 Disorder of kidney and ureter, unspecified; Z98.2 Presence of cerebrospinal fluid drainage device; Z79.899 Other long term (current) drug therapy
CPT/HCPCS: 36415; 84703; 88305

== ENCOUNTER 2017-06-04 13:45 | Emergency (ER) | payer MEDICAID ==
[~2017-06-04] VITALS: Ht 167.6 cm; Wt 78.9 kg
[~2017-06-04 13:45] MED LIST changes: +SUCR1TAB36 PO
--- OUTSIDE RECORDS SUMMARY | 2017-06-04 13:50 | XMS REPORT | Encounter Summary ---
Author Author [facility] Organization [facility] Address Unknown Phone Unavailable Care Team Providers Care Sql Data Architect Name Role Phone PCP Unavailable Reason for Visit * Reason Comments Vomiting seen twice in past three weeks for same Encounter Details Date Type Department Care Team Description 04/11/2017 Emergency Emergency Dept. Rico Payne MD [address] [facility]. [address] [place] [address] [place] [address] [place] [address] [phone] Social History Tobacco Use Types Packs/Day Years [...] foods again, start with small amounts of hurp-jx-ykguhz, low-fat foods. These include apple sauce, toast, [...] provider if you have: Pain for more [id number] Bloating for more than 2days Diarrhea for more [id number] A fever of 100.4F (38.0C) or higher, [...] that increase stomach acid. Avoid aspirin and kdzd-rbi-xopdomt pain and fever medicines (NSAIDS or nonsteroidal anti-inflammatory drugs), if possible Lose extra weight. Finish eating at least 2 hours before you go to bed or lie down. Raise the head of your bed. Date Last Reviewed: 04/01/[id number] [employer]. [address] [place] [address]. All rights reserved. This information is not [...] cyst, or could represent fluid from the RETAIL FIELD REPRESENTATIVE shunt. 2. Cortical irregularity involving the left kidney which is likely secondary to scarring. 3. No gross evidence of acute inflammatory abdominal or pelvic mass or significant adenopathy. 4. RETAIL FIELD REPRESENTATIVE shunt tubing as described. Approved by Ernesto [...] cyst, or could represent fluid from the RETAIL FIELD REPRESENTATIVE shunt. 2. Cortical irregularity involving the left kidney which is likely secondary to scarring. 3. No gross evidence of acute inflammatory abdominal or pelvic mass or significant adenopathy. 4. RETAIL FIELD REPRESENTATIVE shunt tubing as described. Approved by Ernesto [...] NEG-NEG Probe N.Gonorrhea PCR NEG NEG-NEG Comment: [employer] Gen-Probe APTIMA Combo 2 Assay is a [...] Department of Pathology and Laboratory Medicine at [facility] using the [employer] Gen-Probe Jewett System. Specimen Performing Laboratory Cervix [facility] [address] [place] [address] * DIRECT EXAM (WET PREP) (04/11/2017 4:45 AM) Component Value Ref Range Battery Name DIRECT EXAM,WET PREP Specimen Description VAGINAL Special Requests NONE Direct Exam NO YEAST SEEN NO CLUE CELLS SEEN NO TRICHOMONAS SEEN Report Status FINAL 04/11/2017 Specimen Performing Laboratory Vaginal [facility] [address] [place] [address] * URINALYSIS, MICROSCOPIC (04/11/2017 4:28 AM) Component Value Ref Range WBCs,UA 2-10 0 - 2 /HPF RBCs,UA 2-10 0 - 3 /HPF MucousUA TRACE Specimen Performing Laboratory Urine [facility] [address] [place], [place] [id number] * URINALYSIS DIPSTICK (04/11/2017 4:28 AM) Component Value Ref Range Color,UA YELLOW Turbidity,UA CLEAR CLEAR-CLEAR Specific Pyatt-Urine 1.016 1.003 - 1.035 pH,UA 5.0 5.0 - 8.0 Protein,UA NEG NEG-NEG Glucose,UA NEG NEG-NEG Ketones,UA NEG NEG-NEG Bilirubin,UA NEG NEG-NEG Blood,UA NEG NEG-NEG Urobilinogen,UA NORMAL NORM-NORMAL Nitrite,UA NEG NEG-NEG Leukocytes,UA 1+ (A) NEG-NEG Urine Ascorbic Acid, UA NEG NEG-NEG Specimen Performing Laboratory Urine [facility] [address] [place], [place] [id number] * LIPASE (04/11/2017 2:02 AM) Component Value Ref Range Lipase 8 (L) 11 - 82 U/L Specimen Performing Laboratory [facility] [address] [place] [address] * CBC AND DIFF (04/11/2017 2:02 AM) [...] Specimen Performing Laboratory [facility] [address] [place] [address] * COMPREHENSIVE METABOLIC PANEL (04/11/2017 2:02 AM) [...] Specimen Performing Laboratory [facility] [address] [place] [address] in this encounter Visit Diagnoses Diagnosis Abdominal [...]
--- NOTE | 2017-06-04 14:26 | ED General ---
General Chief Complaint: Abdominal/GI Problems Stated Complaint: VOMITING/DIARRHEA Nursing Triage Note: PT REPORTS N/V/D AND MIDLINE ABD PAIN. THIS IS CHRONIC. PT REPORTS SHE HAS RECENTLY HAD AN EGD. SHE STATES SHE IS HAVING SAME S/S PRIOR TO EGD. SHE ALSO REPORTS SHE HAS APPT WITH PCP, BUT IT IS NOT UNTIL 06/27. Nursing Sepsis Screen: No Definite Risk Source of Information: Patient Exam Limitations: No Limitations History of Present Illness Time Seen by Provider: 14:25 Initial Comments This 26-year-old young lady presents to emergency room with complaints of nausea , vomiting, and diarrhea as well as associated upper abdominal discomfort. This is a cyclical recurrent problem. She had a recent EGD and colonoscopy which revealed gastritis/duodenitis. The studies were performed by Dr. Finley at [facility]. She has been ill intermittently for the past few months and has lost a significant amount of weight. She reports chronic diarrhea for nearly 18 months. She also reports having some sore throat that was recently treated with amoxicillin at the clinic. She has completed about 6 days worth of the amoxicillin therapy. She also complains of cough and congestion. She had fever 2 days ago but is afebrile now. She is on testosterone hormone therapy but states symptoms were present prior to starting this therapy. Allergies and Home Medications Allergies Coded Allergies: latex (Verified Allergy, Unknown, 05/12/17) metformin (Verified Allergy, Unknown, DIARRHEA, 05/16/17) lisinopril (Verified Adverse Reaction, Unknown, COUGH, 05/16/17) nitrofurantoin (Verified Adverse Reaction, Unknown, BODY ACHES , 05/16/17) Uncoded Allergies: TREE NUTS (Allergy, Unknown, 04/16/14) Home Medications Albuterol Sulfate 8.5 Gm Hfa.aer.ad, 8.5 GM IH, (Reported) Baclofen 10 Mg Tablet, 10 MG PO PRN, (Reported) Ciprofloxacin HCl 500 Mg Tablet, 500 MG PO BID, #14 Prescribed by: TIFFANY ROSSI on 06/04/17 1728 Loperamide HCl 2 Mg Capsule, 2 MG PO DAILY, (Reported) Losartan Potassium 100 Mg Tablet, 100 MG PO DAILY, (Reported) Metronidazole 500 Mg Tablet, 500 MG PO TID, #20 Prescribed by: TIFFANY ROSSI on 06/04/17 1728 Ondansetron 4 Mg Tab.rapdis, 4 MG SL Q4H, #10 Prescribed by: TIFFANY ROSSI on 06/04/17 1728 Pantoprazole Sodium 40 Mg Tablet.dr, 40 MG PO DAILY, #30 Ref 5 Prescribed by: DRAGAN FINLEY on 05/16/17 1015 Prednisone 20 Mg Tab, 20 MG PO DAILY, #4 Prescribed by: TIFFANY ROSSI on 06/04/17 1728 Sucralfate 1 Gm Tablet, 1 GM PO QID, #120 Prescribed by: DRAGAN FINLEY on 05/16/17 1015 Testosterone 2.5 Gm Gel.packet, Unknown Dose WEEK, (Reported) Constitutional: see HPI, fever EENTM: no symptoms reported Respiratory: see HPI Cardiovascular: no symptoms reported Gastrointestinal: see HPI Genitourinary: no symptoms reported : No Musculoskeletal: no symptoms reported Skin: no symptoms reported Psychiatric/Neurological: No Symptoms Reported Hematologic/Lymphatic: No Symptoms Reported Past Klmpadb-Zzkclu-Eecnel Hx Patient Social History Alcohol Use: Occasionally Uses Recreational Drug Use: No Smoking Status: Current Everyday Smoker Type Used: Cigarettes 2nd Hand Smoke Exposure: No Recent Foreign Travel: No Contact w/Someone Who Travel: No Recent Infectious Disease Expo: No Recent Hopitalizations: No Physical Abuse: No Sexual Abuse: No Immunizations Up To Date Tetanus Booster (TDap): More than 5yrs PED Vaccines UTD: No Seasonal Allergies Seasonal Allergies: No Surgeries History of Surgeries: Yes (lower extremity reconstruction, shunt, back closure for spina bifida ) Surgeries: Bladder Surgery, Brain Shunt, Orthopedic Respiratory History of Respiratory Disorde: Yes Respiratory Disorders: Asthma Cardiovascular History of Cardiac Disorders: Yes Cardiac Disorders: Hypertension Neurological History of Neurological Disord: Yes (spina bifida, neurogenic bladder, hydrocephalus) Reproductive System Hx Reproductive Disorders: No (In process of sex change) Sexually Transmitted Disease: No HIV/AIDS: No Female Reproductive Disorders: Denies Genitourinary History of Genitourinary Disor: Yes Genitourinary Disorders: Kidney Infection, Bladder Infection Gastrointestinal History of Gastrointestinal Di: Yes Gastrointestinal Disorders: Gastroesophageal Reflux, Chronic Diarrhea Musculoskeletal History of Musculoskeletal Dis: Yes (OSTEOMYELITIS) Musculoskeletal Disorders: Chronic Back Pain Endocrine History of Endocrine Disorders: Yes (RIGHT ENLARGED THYROID) HEENT Loss of Vision: Denies Hearing Impairment: Denies Cancer History of Cancer: No Psychosocial History of Psychiatric Problem: No Suicide Risk Score: 0 Integumentary History of Skin or Integumenta: No Blood Transfusions History of Blood Disorders: No Adverse Reaction to a Blood Tr: No Family Medical History Significant Family History: No Pertinent Family Hx ( parents unknown) Family Medial History: Cancer 19 FATHER, Onset:Unknown Family history: Allergy 19 FATHER, Onset:Unknown 19 MOTHER, Onset:Unknown Family history: Diabetes mellitus 19 FATHER, Onset:Unknown 19 MOTHER, Onset:Unknown Family history: Gastrointestinal disease 19 FATHER, Onset:Unknown Family history: Hypertension 19 FATHER, Onset:Unknown 19 MOTHER, Onset:Unknown Family history: Thyroid disorder 19 MOTHER, Onset:Unknown Hypercholesterolemia 19 FATHER, Onset:Unknown Myocardial infarction 19 FATHER, Onset:Unknown No Family History of: Abdominal aortic aneurysm Roger Mills's disease Alcoholism Aphasia Cancer of colon Cataract Chest pain Congenital heart disease Congestive heart failure Cystic fibrosis Dementia Dysphagia Family history: Alzheimer's disease Family history: Arthritis Family history: Asthma Family history: Breast disease Family history: Cardiovascular disease Family history: Coronary thrombosis Family history: Glaucoma Family history: Osteoporosis Headache Hearing loss Heart disease Hereditary disease History of - anemia History of - disorder History of - respiratory disease History of drug abuse Human immunodeficiency virus (HIV) seropositivity Infertile Kidney disease Malignant neoplasm of lung Parkinson's disease Prostate cancer Psychotic disorder Seizure disorder Stroke Tuberculosis Visual impairment Physical Exam Vital Signs Vital Sign - Last 12Hours 06/04/17 14:04 Temp 98.4 Pulse 88 Resp 16 B/P (MAP) 175/120 Pulse Ox 97 O2 Delivery Room Air Capillary Refill : Less Than 3 Seconds General Appearance: No Apparent Distress, WD/WN HEENT: PERRL/EOMI, Normal ENT Inspection, Other (Few petechiae on soft palate) Neck: Non Tender, Supple, Thyromegaly Respiratory: Lungs Clear, Normal Breath Sounds, No Accessory Muscle Use, No Respiratory Distress Cardiovascular: Regular Rate, Rhythm, No Edema, No Murmur, Normal Peripheral Pulses Gastrointestinal: Normal Bowel Sounds, Soft, Tenderness (Across upper abdomen) Back: Normal Inspection Extremity: Normal Inspection, No Pedal Edema Neurologic/Psychiatric: Alert, Oriented x3, No Motor/Sensory Deficits, Normal Mood/Affect, spring repairer helper hand II-XII Norm as Tested Skin: Normal Color, Warm/Dry Progress/Results/Core Measures Results/Orders Lab Results Laboratory Tests Test 06/04/17 14:30 06/04/17 15:56 Range/Units White Blood Count 11.4 H 4.3-11.0 10^3/uL Red Blood Count 5.32 4.35-5.85 10^6/uL Hemoglobin 14.0 11.5-16.0 G/DL Hematocrit 43 35-52 % Mean Corpuscular Volume 80 80-99 FL Mean Corpuscular Hemoglobin 26 25-34 PG Mean Corpuscular Hemoglobin Concent 33 32-36 G/DL Red Cell Distribution Width 15.9 H 10.0-14.5 % Platelet Count 354 130-400 10^3/uL Mean Platelet Volume 9.8 7.4-10.4 FL Neutrophils (%) (Auto) 63 42-75 % Lymphocytes (%) (Auto) 24 12-44 % Monocytes (%) (Auto) 8 0-12 % Eosinophils (%) (Auto) 4 0-10 % Basophils (%) (Auto) 0 0-10 % Neutrophils # (Auto) 7.2 1.8-7.8 X 10^3 Lymphocytes # (Auto) 2.7 1.0-4.0 X 10^3 Monocytes # (Auto) 1.0 0.0-1.0 X 10^3 Eosinophils # (Auto) 0.5 H 0.0-0.3 10^3/uL Basophils # (Auto) 0.1 0.0-0.1 10^3/uL Neutrophils % (Manual) 63 % Lymphocytes % (Manual) 20 % Monocytes % (Manual) 14 % Eosinophils % (Manual) 2 % Band Neutrophils 1 % Hypersegmented Neutrophils SLIGHT Dohle Bodies SLIGHT Blood Morphology Comment NORMAL Erythrocyte Sedimentation Rate 23 H 0-20 MM/HR Sodium Level 141 135-145 MMOL/L Potassium Level 4.1 3.6-5.0 MMOL/L Chloride Level 107 98-107 MMOL/L Carbon Dioxide Level 23 21-32 MMOL/L Anion Gap 11 5-14 MMOL/L Blood Urea Nitrogen 7 7-18 MG/DL Creatinine 0.73 0.60-1.30 MG/DL Estimat Glomerular Filtration Rate > 60 BUN/Creatinine Ratio 10 Glucose Level 102 70-105 MG/DL Calcium Level 9.4 8.5-10.1 MG/DL Magnesium Level 2.3 1.8-2.4 MG/DL Total Bilirubin 0.4 0.1-1.0 MG/DL Aspartate Amino Transf (AST/SGOT) 19 5-34 U/L Alanine Aminotransferase (ALT/SGPT) 16 0-55 U/L Alkaline Phosphatase 99 40-136 U/L C-Reactive Protein High Sensitivity 2.15 H 0.00-0.50 MG/DL Total Protein 7.6 6.4-8.2 GM/DL Albumin 4.1 3.2-4.5 GM/DL TSH Sutton Testing 0.40 0.35-4.94 UIU/ML Serum Test, Qualitative NEGATIVE NEGATIVE Urine Color YELLOW Urine Clarity CLEAR Urine pH 6 5-9 Urine Specific [place] 1.025 H 1.016-1.022 Urine Protein 1+ H NEGATIVE Urine Glucose (UA) NEGATIVE NEGATIVE Urine Ketones 1+ H NEGATIVE Urine Nitrite NEGATIVE NEGATIVE Urine Bilirubin NEGATIVE NEGATIVE Urine Urobilinogen 4 H NORMAL MG/DL Urine Leukocyte Esterase 2+ H NEGATIVE Urine RBC (Auto) NEGATIVE NEGATIVE Urine RBC NONE /HPF Urine WBC 5-10 H /HPF Urine Squamous Epithelial Cells 2-5 /HPF Urine Crystals NONE /LPF Urine Bacteria FEW H /HPF Urine Casts NONE /LPF Urine Mucus SMALL H /LPF Urine Culture Indicated YES My Orders Orders - TIFFANY BECKER MD Cbc With Automated Diff (06/04/17 14:27) Comprehensive Metabolic Panel (06/04/17 14:27) Hs C Reactive Protein (06/04/17 14:27) Erythrocyte Sedimentation Rate (06/04/17 14:27) Magnesium (06/04/17 14:27) Ua Culture If Indicated (06/04/17 14:27) Hcg,Qualitative Serum (06/04/17 14:30) Thyroid Analyzer (06/04/17 14:30) Saline Lock/Iv-Start (06/04/17 14:33) Manual Differential (06/04/17 14:30) Urine Culture (06/04/17 15:56) Vital Signs/I&O Vital Sign - Last 12Hours 06/04/17 06/04/17 14:04 17:43 Temp 98.4 98.4 Pulse 88 74 Resp 16 16 B/P (MAP) 175/120 Pulse Ox 97 97 O2 Delivery Room Air Room Air Blood Pressure Mean: 138 Progress Note : Progress Note Patient was found to have mild elevation in inflammatory markers. She also had urinary tract infection. Patient will be empirically treated with Cipro and Flagyl for possible colitis. Patient had a CT not long ago for a similar episode. Report was reviewed. Supplies for obtaining a stool study were dispensed and a prescription for stool labs was provided. Departure Impression Impression: Primary Impression: Nausea vomiting and diarrhea Additional Impressions: Upper abdominal pain Urinary tract infection Qualified Codes: N39.0 - Urinary tract infection, site not specified Disposition: 01 HOME, SELF-CARE Condition: Improved Departure-Patient Inst. Decision time for Depature: 17:25 Referrals: [facility] (PCP) Primary Care Physician JAMEEL BRIONES (Family) Primary Care Physician Patient Instructions: Acute Abdomen (Belly Pain), Adult (DC) Add. Discharge Instructions: Drink plenty of clear liquids. Use your medications as prescribed. Bring your next stool in for stool studies. Review results with your primary care provider. Follow-up with your primary care provider as soon as possible. In addition to reviewing results from this ER visit, please review CT results from your prior visit as there was question of abnormality of the cervix. Pelvic exam would be recommended. Also review the colonoscopy and EGD reports with your doctor. Return to the emergency room if symptoms worsen. All discharge instructions reviewed with patient and/or family. Voiced understanding. Scripts Ondansetron (Zofran Odt) 4 Mg Tab.rapdis 4 MG SL Q4H, #10 TAB Prov: TIFFANY BECKER MD 06/04/17 Metronidazole (Flagyl) 500 Mg Tablet 500 MG PO TID, #20 TAB Prov: TIFFANY BECKER MD 06/04/17 Ciprofloxacin HCl (Cipro) 500 Mg Tablet 500 MG PO BID, #14 TAB Prov: TIFFANY BECKER MD 06/04/17 Prednisone (Prednisone) 20 Mg Tab 20 MG PO DAILY, #4 TAB Prov: TIFFANY BECKER MD 06/04/17 Copy Copies To 1: DRAGAN FINLEY DO Copies To 2: ANTASHA ESPINOSA MD, JOSHUA T MD Jun 04, 2017 14:26
[2017-06-04 14:37] LABS: BASOPHILS # (AUTO) 0.1 10^3/uL (0.0-0.1); BASOPHILS % (AUTO) 0 % (0-10); EOSINOPHILS # (AUTO) 0.5 10^3/uL (0.0-0.3); EOSINOPHILS % (AUTO) 4 % (0-10); LYMPHOCYTES # (AUTO) 2.7 X 10^3 (1.0-4.0); LYMPHOCYTES % (AUTO) 24 % (12-44); MEAN CORPUSCULAR HEMOGLOBIN 26 PG (25-34); MEAN CORPUSCULAR HGB CONC 33 G/DL (32-36); MEAN CORPUSCULAR VOLUME 80 FL (80-99); MEAN PLATELET VOLUME 9.8 FL (7.4-10.4); MONOCYTES % (AUTO) 8 % (0-12); NEUTROPHILS # (AUTO) 7.2 X 10^3 (1.8-7.8); NEUTROPHILS % (AUTO) 63 % (42-75); PLATELET COUNT 354 10^3/uL (130-400); RED BLOOD COUNT 5.32 10^6/uL (4.35-5.85); RED CELL DISTRIBUTION WIDTH 15.9 % (10.0-14.5); WHITE BLOOD COUNT 11.4 10^3/uL (4.3-11.0)
[2017-06-04 14:54] LABS: ALANINE AMINOTRANSFERASE 16 U/L (0-55); ALBUMIN 4.1 GM/DL (3.2-4.5); ANION GAP 11 MMOL/L (5-14); ASPARTATE AMINO TRANSFERASE 19 U/L (5-34); BILIRUBIN,TOTAL 0.4 MG/DL (0.1-1.0); BLOOD UREA NITROGEN 7 MG/DL (7-18); BUN/CREATININE RATIO 10; CALCIUM 9.4 MG/DL (8.5-10.1); CARBON DIOXIDE 23 MMOL/L (21-32); CHLORIDE 107 MMOL/L (98-107); CREATININE SERUM 0.73 MG/DL (0.60-1.30); GFR ESTIMATED > 60; GLUCOSE 102 MG/DL (70-105); MAGNESIUM 2.3 MG/DL (1.8-2.4); POTASSIUM 4.1 MMOL/L (3.6-5.0); SODIUM 141 MMOL/L (135-145); TOTAL PROTEIN 7.6 GM/DL (6.4-8.2); hs C REACTIVE PROTEIN 2.15 MG/DL (0.00-0.50)
[2017-06-04 14:58] LABS: BAND NEUTROPHILS 1 %; EOSINOPHILS % (MANUAL) 2 %; LYMPHOCYTES % (MANUAL) 20 %; NEUTROPHILS % (MANUAL) 63 %
[2017-06-04 15:21] LABS: ERYTHROCYTE SEDIMENTATION RATE 23 MM/HR (0-20)
[2017-06-04 16:03] LABS: BILIRUBIN,URINE NEGATIVE (NEGATIVE); KETONES,URINE 1+ (NEGATIVE); LEUKOCYTE ESTERASE ,URINE 2+ (NEGATIVE); NITRITE,URINE NEGATIVE (NEGATIVE); PH,URINE 6 (5-9); PROTEIN,URINE 1+ (NEGATIVE); UROBILINOGEN,URINE 4 MG/DL (NORMAL)
[2017-06-04] MEDS ORDERED: PRD20T PO (17:28)
[2017-06-04] MEDS ORDERED: ONDA4TAB8 SL (17:28)
[2017-06-04] MEDS ORDERED: CIPR-225 PO (17:28)
[2017-06-04] MEDS ORDERED: METR500T PO (17:28)
[2017-06-04 17:43] VITALS: BP 168/100
== END 2017-06-04 17:43 | disposition home or self-care (01) ==
LOC: EDUNIT# 13:45 → ER 13:46
DX: N39.0 Urinary tract infection, site not specified (principal); R10.10 Upper abdominal pain, unspecified; K52.9 Noninfective gastroenteritis and colitis, unspecified; K21.9 Gastro-esophageal reflux disease without esophagitis; J45.909 Unspecified asthma, uncomplicated; I10 Essential (primary) hypertension; F17.210 Nicotine dependence, cigarettes, uncomplicated; Z87.19 Personal history of other diseases of the digestive system; Z87.39 Personal history of other diseases of the musculoskeletal system and connective tissue; Z98.2 Presence of cerebrospinal fluid drainage device; Z80.9 Family history of malignant neoplasm, unspecified
CPT/HCPCS: 36415; 80053; 81000; 83735; 84443; 84703; 85007; 85027; 85652; 86141; 87077; 87088; 87186

== ENCOUNTER → 2017-07-03 | Outpatient (CLI) | payer MEDICAID ==
[~2017-07-03] MED LIST changes: +CIPR-225 PO; +METR500T PO; +ONDA4TAB8 SL; +PRD20T PO
--- NOTE | 2017-07-03 09:00 | Diagnostic Imaging Report ---
PROCEDURE: US abdomen complete. TECHNIQUE: Multiple real-time grayscale images were obtained over the abdomen in various projections. INDICATION: Diarrhea and vomiting. FINDINGS: The pancreas appears unremarkable. The liver is fairly homogeneous with no focal lesion. Hepatopetal flow in the portal vein is seen. The CBD is 4 mm in caliber. The gallbladder demonstrates no stones or wall thickening. The right kidney is 11.7 cm, and the left kidney is 12.7 cm in length. There is no hydronephrosis or focal lesion. The visualized portions of the aorta and IVC appear unremarkable. The spleen is 12.7 cm in length, at the upper limits of normal. No fluid collection or free air or fluid in the abdomen is identified. Sonographic Mariano sign is reportedly negative. IMPRESSION: Unremarkable exam. Dictated by: Dictated on workstation # [id number]
== END ==
LOC: RAD 06:52
PROVIDERS: ATTEND Nurse Practitioner Family
DX: K58.0 Irritable bowel syndrome with diarrhea (principal); R11.10 Vomiting, unspecified
CPT/HCPCS: 76700

== ENCOUNTER 2017-08-22 20:27 | Emergency (ER) | payer MEDICAID ==
[~2017-08-22] VITALS: Ht 167.6 cm; Wt 73.5 kg
--- OUTSIDE RECORDS SUMMARY | 2017-08-22 20:33 | XMS REPORT ---
Author Author JAMEEL BRIONES Organization [facility] Address [address] [place] [address] Care Team Providers Care Policy Issue Clerk Name Role Phone JAMEEL BRIONES Unavailable PROBLEMS Type Condition ICD9-CM Code ATZ45-CA Code Onset Dates Condition Status SNOMED Code Problem Hypertension I10 Active 31364498 Problem Enlarged thyroid E04.9 Active 2825859 Problem Pharyngoesophageal dysphagia R13.14 Active 40760664 Problem Thyroid mass of unclear etiology E07.89 Active 101631139 Problem Thyroid nodule, cold E04.1 Active 843568188 Problem Spina bifida Q05.9 Active 20167919 Problem Asthma J45.909 Active 540849191 Problem Irritable bowel syndrome with diarrhea K58.0 Active 370030429 Problem Neurogenic bladder N31.9 Active 099404089 Problem Gastroesophageal reflux disease without esophagitis K21.9 Active 218381819 Problem Spina bifida of lumbosacral region with hydrocephalus Q05.2 Active 45772647 Problem Gastroesophageal reflux disease, esophagitis presence not specified K21.9 Active 963100985 Problem Mild intermittent asthma without complication J45.20 Active 992032862 ALLERGIES No Information SOCIAL HISTORY Never Assessed PLAN OF CARE VITAL SIGNS MEDICATIONS No Known Medications RESULTS No Results PROCEDURES No Known procedures IMMUNIZATIONS No Known Immunizations MEDICAL (GENERAL) HISTORY Type Description Date Medical History spina bifida Medical History asthma Medical History hypertension Medical History club foot Medical History genderdysphoria Medical History neurogenic bladder Surgical History spine surgery 1992 Surgical History BP shunt several times 1991 Surgical History club foot several times 1993 Surgical History numerous surgeries all related to spina bifida Surgical History mitrofanoff for bladder 2009 Surgical History osteomyelitis of foot R 2008 Hospitalization History Surgeries listed Hospitalization History numerous times for bladder infections
--- OUTSIDE RECORDS SUMMARY | 2017-08-22 20:36 | XMS REPORT ---
Author Author SHIVAM MAGDALENO Organization [facility] Address [address] [place] [address] Care Team Providers Care Rn Invasive Name Role Phone SHIVAM MAGDALENO Unavailable PROBLEMS Type Condition ICD9-CM Code [id number] Code Onset Dates Condition Status SNOMED Code Problem Hypertension I10 Active 43446441 Problem Pharyngoesophageal dysphagia R13.14 Active 06163328 Problem Spina bifida Q05.9 Active 57201654 Problem Thyroid mass of unclear etiology E07.89 Active 032260233 Problem Thyroid nodule, cold E04.1 Active 205491453 Problem Asthma J45.909 Active 807342354 Problem Gastroesophageal reflux disease, esophagitis presence not specified K21.9 Active 045181214 Problem Neurogenic bladder N31.9 Active 454814681 Problem Spina bifida of lumbosacral region with hydrocephalus Q05.2 Active 61247581 Problem Enlarged thyroid E04.9 Active 3505138 Problem Mild intermittent asthma without complication J45.20 Active 583156919 Problem Gastroesophageal reflux disease without esophagitis K21.9 Active 053680844 ALLERGIES No Information SOCIAL HISTORY Never Assessed PLAN OF CARE VITAL SIGNS MEDICATIONS Unknown Medications RESULTS Name Result Date Reference Range Ultrasound : Guide for Biopsy 2016-11-29 NUCLEAR MED : Thyroid Scan 2016-11-24 PROCEDURES No Known procedures IMMUNIZATIONS No Known Immunizations MEDICAL (GENERAL) HISTORY Type Description Date Medical History spina bifida Medical History asthma Medical History hypertension Medical History club foot Medical History genderdysphoria Medical History neurogenic bladder Surgical History spine surgery 1991 Surgical History BP shunt several times 1991 Surgical History club foot several times 1993 Surgical History numerous surgeries all related to spina bifida Surgical History mitrofanoff for bladder 2009 Surgical History osteomyelitis of foot R 2008 Hospitalization History Surgeries listed Hospitalization History numerous times for bladder infections
--- OUTSIDE RECORDS SUMMARY | 2017-08-22 20:38 | XMS REPORT ---
Author Author JAMEEL BRIONES [facility] Address [address] [place] [address] Care Team Providers Care Preschool Disability Teacher Name Role Phone JAMEEL BRIONES Unavailable PROBLEMS Type Condition ICD9-CM Code [id number] Code Onset Dates Condition Status SNOMED Code Problem Hypertension I10 Active 76991691 Problem Enlarged thyroid E04.9 Active 2960909 Problem Pharyngoesophageal dysphagia R13.14 Active 23263018 Problem Thyroid mass of unclear etiology E07.89 Active 579170870 Problem Thyroid nodule, cold E04.1 Active 136308473 Problem Spina bifida Q05.9 Active 20407209 Problem Asthma J45.909 Active 412869537 Problem Irritable bowel syndrome with diarrhea K58.0 Active 605669626 Problem Neurogenic bladder N31.9 Active 189471447 Problem Gastroesophageal reflux disease without esophagitis K21.9 Active 289362817 Problem Spina bifida of lumbosacral region with hydrocephalus Q05.2 Active 84242038 Problem Gastroesophageal reflux disease, esophagitis presence not specified K21.9 Active 596671294 Problem Mild intermittent asthma without complication J45.20 Active 932569498 ALLERGIES Substance Reaction Event Type Date Status Latex Unknown Drug Allergy Nov, Active Metformin HCl fever/chills/diarrhea Drug Allergy Nov, Active Macrobid nausea Drug Allergy Nov, Active Lisinopril dry cough Drug Allergy Nov, Active SOCIAL HISTORY Never Assessed PLAN OF CARE Activity Details Follow Up 2-3 weeks Reason:review lab VITAL SIGNS Height 67 in 2016-12-01 Weight 214 lbs 2016-12-01 Temperature 99.4 degrees Fahrenheit 2016-12-01 Heart Rate 86 bpm 2016-12-01 Respiratory Rate 18 2016-12-01 BMI 33.51 kg/m2 2016-12-01 Blood pressure systolic 140 mmHg 2016-12-01 Blood pressure diastolic 100 mmHg 2016-12-01 MEDICATIONS Medication Instructions Dosage Frequency Start Date End Date Duration Status Cipro 250 MG Orally every 12 hrs 1 tablet 12h Nov, Nov, 05 days Active Nexium 20 MG Orally Once a day 1 capsule 24h Active Albuterol Sulfate 90 mcg/actuation take 2 puffs by Inhalation route every 4 -6 hours as needed PRN cough or wheezing 6h Nov, Active Testosterone 100 MG/ML Active Losartan Potassium 100 MG Orally Once a day 1 tablet 24h Active RESULTS Name Result Date Reference Range H PYLORI (IN HOUSE) 2016-12-01 H. PYLORI Negative Control + Lot # [id number] Exp date 09/2017 MAGNESIUM, SERUM 2016-12-01 Magnesium, Serum 1.8 1.6-2.3 CULTURE, URINE 2016-12-01 Urine Culture, Routine Final report Result 1 No growth CMP 2016-12-01 Glucose, Serum 94 65-99 BUN 6 6-20 Creatinine, Serum 0.75 0.57-1.00 eGFR If NonAfricn Am 111 >59 eGFR If Africn Am 128 >59 BUN/Creatinine Ratio 8 8-20 Sodium, Serum 140 134-144 Potassium, Serum 4.6 3.5-5.2 Chloride, Serum 100 96-106 Carbon Dioxide, Total 24 18-29 Calcium, Serum 9.6 8.7-10.2 Protein, Total, Serum 7.5 6.0-8.5 Albumin, Serum 4.5 3.5-5.5 Globulin, Total 3.0 1.5-4.5 A/G Ratio 1.5 1.1-2.5 Bilirubin, Total 0.3 0.0-1.2 Alkaline Phosphatase, S 89 39-117 AST (SGOT) 21 0-40 ALT (SGPT) 14 0-32 UA LONG DIP (IN HOUSE) 2016-12-01 Lot # [id number] Exp date 10/2017 Clarity clear Color yellow Odor none GLU negative VITALIY negative KET negative SG 1.020 BLO trace-intact pH 5.5 Protein negative URO 0.2 NIT negative KENYATTA trace Lot # Exp PROCEDURES Procedure Date Ordered Result Body Site IMMUNOASSAY,INFECTIOUS AGENT December 01, 2016 URINALYSIS, AUTO, W/O SCOPE December 01, 2016 VENIPUNCT, ROUTINE* December 01, 2016 URINE CULTURE/COLONY COUNT December 01, 2016 ASSAY OF MAGNESIUM December 01, 2016 COMPREHEN METABOLIC PANEL December 01, 2016 IMMUNIZATIONS No Known Immunizations MEDICAL (GENERAL) HISTORY [...]
--- OUTSIDE RECORDS SUMMARY | 2017-08-22 20:43 | XMS REPORT ---
Author Author JAMEEL BRIONES Organization [facility] Address [address] [place] [address] Care Team Providers Care Lubrication Supervisor Name Role Phone JAMEEL BRIONES Unavailable PROBLEMS Type Condition ICD9-CM Code [id number] Code Onset Dates Condition Status SNOMED Code Problem Hypertension I10 Active 45360360 Problem Enlarged thyroid E04.9 Active 4047209 Problem Pharyngoesophageal dysphagia R13.14 Active 57068938 Problem Thyroid mass of unclear etiology E07.89 Active 652890609 Problem Thyroid nodule, cold E04.1 Active 496145005 Problem Spina bifida Q05.9 Active 62960333 Problem Asthma J45.909 Active 944557124 Problem Irritable bowel syndrome with diarrhea K58.0 Active 900550150 Problem Neurogenic bladder N31.9 Active 890190207 Problem Gastroesophageal reflux disease without esophagitis K21.9 Active 681468031 Problem Spina bifida of lumbosacral region with hydrocephalus Q05.2 Active 40118764 Problem Gastroesophageal reflux disease, esophagitis presence not specified K21.9 Active 017176301 Problem Mild intermittent asthma without complication J45.20 Active 428554601 ALLERGIES No Information SOCIAL HISTORY Never Assessed [...]
--- OUTSIDE RECORDS SUMMARY | 2017-08-22 20:43 | XMS REPORT ---
Author Author MAGDALENOSHIVAM Kaur Organization [facility] Address [address] [place] [address] Care Team Providers Care Resizer Operator Name Role Phone SHIVAM MAGDALENO Unavailable PROBLEMS Type Condition ICD9-CM Code [id number] Code Onset Dates Condition Status SNOMED Code Problem Hypertension I10 Active 88390465 Problem Pharyngoesophageal dysphagia R13.14 Active 51421724 Problem Spina bifida Q05.9 Active 75664758 Problem Thyroid mass of unclear etiology E07.89 Active 576854473 Problem Thyroid nodule, cold E04.1 Active 662789201 Problem Asthma J45.909 Active 518678023 Problem Gastroesophageal reflux disease, esophagitis presence not specified K21.9 Active 721356530 Problem Neurogenic bladder N31.9 Active 427105130 Problem Spina bifida of lumbosacral region with hydrocephalus Q05.2 Active 35948684 Problem Enlarged thyroid E04.9 Active 1945612 Problem Mild intermittent asthma without complication J45.20 Active 705833788 Problem Gastroesophageal reflux disease without esophagitis K21.9 Active 604888133 ALLERGIES Substance Reaction Event Type Date Status Macrobid Unknown Drug Allergy Oct, Active Lisinopril 40 Mg Tablet Cough Non Drug Allergy Oct, Active Metformin 500 Mg Tablet,er Tami.retention 24 Hr Unknown Non Drug Allergy Oct, Active SOCIAL HISTORY No smoking Hx information available PLAN OF CARE Activity Details Follow Up prn Reason: VITAL SIGNS Height 67 in 2016-10-29 Weight 220.4 lbs 2016-10-29 Temperature 97.7 degrees Fahrenheit 2016-10-29 Heart Rate 80 bpm 2016-10-29 Respiratory Rate 18 2016-10-29 BMI 34.52 kg/m2 2016-10-29 Blood pressure systolic 142 mmHg 2016-10-29 Blood pressure diastolic 98 mmHg 2016-10-29 MEDICATIONS Medication Instructions Dosage Frequency Start Date End Date Duration Status Cipro 500 MG Orally Twice a day 1 tablet 12h Active PrednisoLONE 5 MG Orally BID 12h Active Nexium 20 MG Orally Once a day 1 capsule 24h Active Albuterol Sulfate 90 mcg/actuation take 2 puffs by Inhalation route every 4 -6 hours as needed PRN cough or wheezing 6h Nov, Active Losartan Potassium 100 MG Orally Once a day 1 tablet 24h Active Testosterone 100 MG/ML Active RESULTS Name Result Date Reference Range STREP A (IN HOUSE) 2016-10-29 STREP A negative Control + Lot # [id number] Exp date Ultrasound : Thyroid 2016-11-03 PROCEDURES Procedure Date Ordered Related Diagnosis Body Site STREP A ASSAY W/OPTIC Oct 29, 2016 Office Visit, Est Pt., Level 3 Oct 29, 2016 IMMUNIZATIONS No Known Immunizations
--- OUTSIDE RECORDS SUMMARY | 2017-08-22 20:43 | XMS REPORT ---
Author Author JAMEEL BRIONES [facility] Address [address] [place] [address] Care Team Providers Care Master Control Engineer Name Role Phone JAMEEL BRIONES Unavailable PROBLEMS Type Condition ICD9-CM Code [id number] Code Onset Dates Condition Status SNOMED Code Problem Hypertension I10 Active 43549869 Problem Enlarged thyroid E04.9 Active 7992475 Problem Pharyngoesophageal dysphagia R13.14 Active 53564797 Problem Thyroid mass of unclear etiology E07.89 Active 243234084 Problem Thyroid nodule, cold E04.1 Active 132343417 Problem Spina bifida Q05.9 Active 44007578 Problem Asthma J45.909 Active 020653839 Problem Irritable bowel syndrome with diarrhea K58.0 Active 844403109 Problem Neurogenic bladder N31.9 Active 990279215 Problem Gastroesophageal reflux disease without esophagitis K21.9 Active 574139030 Problem Spina bifida of lumbosacral region with hydrocephalus Q05.2 Active 51998465 Problem Gastroesophageal reflux disease, esophagitis presence not specified K21.9 Active 995740508 Problem Mild intermittent asthma without complication J45.20 Active 362158404 ALLERGIES Substance Reaction Event Type Date Status Latex Unknown Drug Allergy Nov, Active Metformin HCl fever/chills/diarrhea Drug Allergy Nov, Active Macrobid nausea Drug Allergy Nov, Active Lisinopril dry cough Drug Allergy Nov, Active SOCIAL HISTORY Never Assessed PLAN OF CARE Activity Details Follow Up after consult with Dr. Brown Reason: VITAL SIGNS Height 67 in 2016-12-20 Weight 214.2 lbs 2016-12-20 Temperature 97.8 degrees Fahrenheit 2016-12-20 Heart Rate 84 bpm 2016-12-20 Respiratory Rate 18 2016-12-20 BMI 33.54 kg/m2 2016-12-20 Blood pressure systolic 128 mmHg 2016-12-20 Blood pressure diastolic 82 mmHg 2016-12-20 MEDICATIONS Medication Instructions Dosage Frequency Start Date End Date Duration Status Testosterone 100 MG/ML Active Nexium 20 MG Orally Once a day 1 capsule 24h Active Losartan Potassium 100 MG Orally Once a day 1 tablet 24h Active Albuterol Sulfate 90 mcg/actuation take 2 puffs by Inhalation route every 4 -6 hours as needed PRN cough or wheezing Active RESULTS Name Result Date Reference Range TSH W/ FREE T4 2016-12-20 TSH 1.400 0.450-4.500 T4,Free(Direct) 1.24 0.82-1.77 PROCEDURES Procedure Date Ordered Result Body Site ASSAY THYROID STIM HORMONE December 20, 2016 ASSAY OF FREE THYROXINE December 20, 2016 VENIPUNCT, ROUTINE* December 20, 2016 IMMUNIZATIONS No Known Immunizations MEDICAL (GENERAL) [...] spina bifida Surgical History mitrofanoff for bladder 2008 Surgical History osteomyelitis of foot R 2007 Hospitalization History Surgeries listed Hospitalization History numerous times for bladder infections
--- OUTSIDE RECORDS SUMMARY | 2017-08-22 20:43 | XMS REPORT ---
Author Author JAMEEL BRIONES Organization [facility] Address [address] [place] [address] Care Team Providers Care Security Systems Administrator Name Role Phone JAMEEL BRIONES Unavailable PROBLEMS Type Condition ICD9-CM Code UTS54-HR Code Onset Dates Condition Status SNOMED Code Problem Hypertension I10 Active 32609990 Problem Enlarged thyroid E04.9 Active 8543321 Problem Pharyngoesophageal dysphagia R13.14 Active 94904810 Problem Thyroid mass of unclear etiology E07.89 Active 673168690 Problem Thyroid nodule, cold E04.1 Active 984341802 Problem Spina bifida Q05.9 Active 57390106 Problem Asthma J45.909 Active 647291604 Problem Irritable bowel syndrome with diarrhea K58.0 Active 872664041 Problem Neurogenic bladder N31.9 Active 954567915 Problem Gastroesophageal reflux disease without esophagitis K21.9 Active 787964654 Problem Spina bifida of lumbosacral region with hydrocephalus Q05.2 Active 98678568 Problem Gastroesophageal reflux disease, esophagitis presence not specified K21.9 Active 866454157 Problem Mild intermittent asthma without complication J45.20 Active 402003462 ALLERGIES No Information SOCIAL HISTORY Never Assessed PLAN OF CARE VITAL SIGNS MEDICATIONS Medication Instructions Dosage Frequency Start Date End Date Duration Status Cipro 250 MG Orally every 12 hrs 1 tablet 12h January, January, 07 days Active RESULTS No Results PROCEDURES No Known procedures [...] 2009 Surgical History osteomyelitis of foot R 2007 Hospitalization History Surgeries listed Hospitalization History numerous times for bladder infections
--- OUTSIDE RECORDS SUMMARY | 2017-08-22 20:44 | XMS REPORT ---
Author Author JESUS GREENBERG [facility] Address [address] [place] [address] Care Team Providers Care Bessemer Bottom Maker Name Role Phone JESUS GREENBERG Unavailable PROBLEMS Type Condition ICD9-CM Code [id number] Code Onset Dates Condition Status SNOMED Code Problem Hypertension I10 Active 75366417 Problem Pharyngoesophageal dysphagia R13.14 Active 82820408 Problem Spina bifida Q05.9 Active 63169871 Problem Thyroid mass of unclear etiology E07.89 Active 010362969 Problem Thyroid nodule, cold E04.1 Active 013610536 Problem Asthma J45.909 Active 672391636 Problem Gastroesophageal reflux disease, esophagitis presence not specified K21.9 Active 922056663 Problem Neurogenic bladder N31.9 Active 673268836 Problem Spina bifida of lumbosacral region with hydrocephalus Q05.2 Active 89647288 Problem Enlarged thyroid E04.9 Active 3263366 Problem Mild intermittent asthma without complication J45.20 Active 524692474 Problem Gastroesophageal reflux disease without esophagitis K21.9 Active 294517081 ALLERGIES Unknown Allergies SOCIAL HISTORY No smoking Hx information available PLAN OF CARE VITAL SIGNS MEDICATIONS Unknown Medications RESULTS No Results PROCEDURES No Known procedures IMMUNIZATIONS No Known Immunizations
--- OUTSIDE RECORDS SUMMARY | 2017-08-22 20:44 | XMS REPORT ---
Author Author JESUS GREENBERG [facility] Address [address] [place] [address] Care Team Providers Care Supervisor Looping Name Role Phone JESUS GREENBERG Unavailable PROBLEMS Type Condition ICD9-CM Code [id number] Code Onset Dates Condition Status SNOMED Code Problem Hypertension I10 Active 20430924 Problem Pharyngoesophageal dysphagia R13.14 Active 29685002 Problem Spina bifida Q05.9 Active 51522009 Problem Thyroid mass of unclear etiology E07.89 Active 407952044 Problem Thyroid nodule, cold E04.1 Active 218425370 Problem Asthma J45.909 Active 090485518 Problem Gastroesophageal reflux disease, esophagitis presence not specified K21.9 Active 850350492 Problem Neurogenic bladder N31.9 Active 570609124 Problem Spina bifida of lumbosacral region with hydrocephalus Q05.2 Active 05509669 Problem Enlarged thyroid E04.9 Active 8511730 Problem Mild intermittent asthma without complication J45.20 Active 765482257 Problem Gastroesophageal reflux disease without esophagitis K21.9 Active 581510725 ALLERGIES No Information SOCIAL HISTORY Never Assessed [...] 1992 Surgical History BP shunt several times 1992 Surgical History club foot several times 1993 Surgical History numerous surgeries all related to spina bifida Surgical History mitrofanoff for bladder 2009 Surgical History osteomyelitis of foot R 2008 Hospitalization History Surgeries listed Hospitalization History numerous times for bladder infections
--- OUTSIDE RECORDS SUMMARY | 2017-08-22 20:44 | XMS REPORT ---
Author Author JAMEEL BRIONES [facility] Address [address] [place] [address] Care Team Providers Care Electrical Machinist Name Role Phone JAMEEL BRIONES Unavailable PROBLEMS Type Condition ICD9-CM Code [id number] Code Onset Dates Condition Status SNOMED Code Problem Hypertension I10 Active 41574060 Problem Pharyngoesophageal dysphagia R13.14 Active 88045315 Problem Spina bifida Q05.9 Active 39895629 Problem Thyroid mass of unclear etiology E07.89 Active 360644637 Problem Thyroid nodule, cold E04.1 Active 498872649 Problem Asthma J45.909 Active 355117894 Problem Gastroesophageal reflux disease, esophagitis presence not specified K21.9 Active 055296453 Problem Neurogenic bladder N31.9 Active 859200548 Problem Spina bifida of lumbosacral region with hydrocephalus Q05.2 Active 11515186 Problem Enlarged thyroid E04.9 Active 3538748 Problem Mild intermittent asthma without complication J45.20 Active 920948136 Problem Gastroesophageal reflux disease without esophagitis K21.9 Active 123314817 ALLERGIES Substance Reaction Event Type Date Status Macrobid nausea Drug Allergy Nov, Active Lisinopril 40 Mg Tablet Cough Non Drug Allergy Nov, Active Metformin 500 Mg Tablet,er Tami.retention 24 Hr nausea Non Drug Allergy Nov, Active SOCIAL HISTORY Never Assessed PLAN OF CARE VITAL SIGNS MEDICATIONS Medication Instructions Dosage Frequency Start Date End Date Duration Status Albuterol Sulfate 90 mcg/actuation take 2 puffs by Inhalation route every 4 -6 hours as needed PRN cough or wheezing 6h Nov, Active Losartan Potassium 100 MG Orally Once a day 1 tablet 24h Active Nexium 20 MG Orally Once a day 1 capsule 24h Active Testosterone 100 MG/ML Active RESULTS No Results PROCEDURES No Known [...]
[2017-08-22 20:46] LABS: BILIRUBIN,URINE NEGATIVE (NEGATIVE); KETONES,URINE NEGATIVE (NEGATIVE); LEUKOCYTE ESTERASE ,URINE 3+ (NEGATIVE); NITRITE,URINE NEGATIVE (NEGATIVE); PH,URINE 6 (5-9); PROTEIN,URINE 2+ (NEGATIVE); UROBILINOGEN,URINE NORMAL (NORMAL)
--- NOTE | 2017-08-22 20:48 | ED GU-Female ---
General Chief Complaint: -Female Stated Complaint: BLADDER INFECTION Nursing Triage Note: patient reports having a UTI for a while and vomited yesterday and today Nursing Sepsis Screen: No Definite Risk Source: patient Exam Limitations: no limitations History of Present Illness Time seen by provider: 20:46 Initial Comments To ER with reports of suprapubic abdominal pain, vomiting yesterday, vomiting today. Believes himself to have a urinary tract infection. This is a 26-year- old white biological female transgender patient transitioning to male with the use of testosterone. Does self catheterize using a through the umbilicus via Mitrofanoff appendicovesicostomy. This was done years ago due to neurogenic bladder from spina bifida. He identifies as male. Timing/Duration: just prior to arrival Severity/Quality: moderate Location: suprapubic Radiation: none Associated Symptoms: denies symptoms, fever/chills, nausea/vomiting Allergies and Home Medications Allergies Coded Allergies: latex (Verified Allergy, Unknown, 05/12/17) metformin (Verified Allergy, Unknown, DIARRHEA, 05/16/17) lisinopril (Verified Adverse Reaction, Unknown, COUGH, 05/16/17) nitrofurantoin (Verified Adverse Reaction, Unknown, BODY ACHES , 05/16/17) Uncoded Allergies: TREE NUTS (Allergy, Unknown, 04/16/14) Home Medications Albuterol Sulfate 8.5 Gm Hfa.aer.ad, 8.5 GM IH, (Reported) Baclofen 10 Mg Tablet, 10 MG PO PRN, (Reported) Ciprofloxacin HCl 500 Mg Tablet, 500 MG PO BID, #14 Prescribed by: TIFFANY ROSSI on 06/04/17 1728 Loperamide HCl 2 Mg Capsule, 2 MG PO DAILY, (Reported) Losartan Potassium 100 Mg Tablet, 100 MG PO DAILY, (Reported) Metronidazole 500 Mg Tablet, 500 MG PO TID, #20 Prescribed by: TIFFANY ROSSI on 06/04/17 1728 Ondansetron 4 Mg Tab.rapdis, 4 MG SL Q4H, #10 Prescribed by: TIFFANY ROSSI on 06/04/17 1728 Pantoprazole Sodium 40 Mg Tablet.dr, 40 MG PO DAILY, #30 Ref 5 Prescribed by: DRAGAN FINLEY on 05/16/17 1015 Prednisone 20 Mg Tab, 20 MG PO DAILY, #4 Prescribed by: TIFFANY ROSSI on 06/04/17 1728 Sucralfate 1 Gm Tablet, 1 GM PO QID, #120 Prescribed by: DRAGAN FINLEY on 05/16/17 1015 Testosterone 2.5 Gm Gel.packet, Unknown Dose WEEK, (Reported) Constitutional: see HPI EENTM: see HPI Respiratory: no symptoms reported Cardiovascular: no symptoms reported Genitourinary: no symptoms reported Musculoskeletal: no symptoms reported Skin: no symptoms reported Psychiatric/Neurological: No Symptoms Reported Past Gsdiqli-Mznkde-Yxjqug Hx Patient Social History Alcohol Use: Denies Use Recreational Drug Use: No Smoking Status: Current Everyday Smoker Type Used: Cigarettes 2nd Hand Smoke Exposure: No Recent Foreign Travel: No Contact w/Someone Who Travel: No Recent Infectious Disease Expo: No Recent Hopitalizations: No Immunizations Up To Date Tetanus Booster (TDap): More than 5yrs PED Vaccines UTD: No Seasonal Allergies Seasonal Allergies: No Surgeries History of Surgeries: Yes (lower extremity reconstruction, shunt, back closure for spina bifida ) Surgeries: Bladder Surgery, Brain Shunt, Orthopedic Respiratory History of Respiratory Disorde: Yes Respiratory Disorders: Asthma Cardiovascular History of Cardiac Disorders: Yes Cardiac Disorders: Hypertension Neurological History of Neurological Disord: Yes (spina bifida, neurogenic bladder, hydrocephalus) Reproductive System Hx Reproductive Disorders: No (In process of sex change) Sexually Transmitted Disease: No HIV/AIDS: No Female Reproductive Disorders: Denies Genitourinary History of Genitourinary Disor: Yes Genitourinary Disorders: Kidney Infection, Bladder Infection Gastrointestinal History of Gastrointestinal Di: Yes Gastrointestinal Disorders: Gastroesophageal Reflux, Chronic Diarrhea Musculoskeletal History of Musculoskeletal Dis: Yes (OSTEOMYELITIS) Musculoskeletal Disorders: Chronic Back Pain Endocrine History of Endocrine Disorders: Yes (RIGHT ENLARGED THYROID) HEENT Loss of Vision: Denies Hearing Impairment: Denies Cancer History of Cancer: No Psychosocial History of Psychiatric Problem: No Integumentary History of Skin or Integumenta: No Blood Transfusions History of Blood Disorders: No Adverse Reaction to a Blood Tr: No Family Medical History Significant Family History: No Pertinent Family Hx Family Medial History: Cancer 19 FATHER, Onset:Unknown Family history: Allergy 19 FATHER, Onset:Unknown 19 MOTHER, Onset:Unknown Family history: Diabetes mellitus 19 FATHER, Onset:Unknown 19 MOTHER, Onset:Unknown Family history: Gastrointestinal disease 19 FATHER, Onset:Unknown Family history: Hypertension 19 FATHER, Onset:Unknown 19 MOTHER, Onset:Unknown Family history: Thyroid disorder 19 MOTHER, Onset:Unknown Hypercholesterolemia 19 FATHER, Onset:Unknown Myocardial infarction 19 FATHER, Onset:Unknown No Family History of: Abdominal aortic aneurysm [place]'s disease Alcoholism Aphasia Cancer of colon Cataract Chest pain Congenital heart disease Congestive heart failure Cystic fibrosis Dementia Dysphagia Family history: Alzheimer's disease Family history: Arthritis Family history: Asthma Family history: Breast disease Family history: Cardiovascular disease Family history: Coronary thrombosis Family history: Glaucoma Family history: Osteoporosis Headache Hearing loss Heart disease Hereditary disease History of - anemia History of - disorder History of - respiratory disease History of drug abuse Human immunodeficiency virus (HIV) seropositivity Infertile Kidney disease Malignant neoplasm of lung Parkinson's disease Prostate cancer Psychotic disorder Seizure disorder Stroke Tuberculosis Visual impairment Physical Exam Vital Signs Vital Sign - Last 12Hours 08/22/17 20:38 Temp 98.7 Pulse 85 Resp 18 B/P (MAP) 174/124 Pulse Ox 99 Capillary Refill : Less Than 3 Seconds General Appearance: WD/WN, no apparent distress HEENT: PERRL/EOMI, normal ENT inspection Neck: non-tender, full range of motion Respiratory: normal breath sounds, no respiratory distress, no accessory muscle use Gastrointestinal: normal bowel sounds, soft, tenderness (suprapubic) Extremities: normal range of motion, non-tender Neurologic/Psychiatric: alert, normal mood/affect, oriented x 3 Skin: normal color, warm/dry Progress/Results/Core Measures Suspected Sepsis Recent Fever Within 48 Hours: No Infection Criteria Present: None New/Unexplained Altered Menta: No Sepsis Screen: No Definite Risk Sepsis Diagnosis: SIRS Temperature:98.7 Pulse: 85 Respiratory Rate: 18 Blood Pressure 174 /124 Mean: 141 Results/Orders Lab Results Laboratory Tests Test 08/22/17 20:39 Range/Units Urine Color YELLOW Urine Clarity VERY CLOUDY H Urine pH 6 5-9 Urine Specific [place] 1.020 1.016-1.022 Urine Protein 2+ H NEGATIVE Urine Glucose (UA) NEGATIVE NEGATIVE Urine Ketones NEGATIVE NEGATIVE Urine Nitrite NEGATIVE NEGATIVE Urine Bilirubin NEGATIVE NEGATIVE Urine Urobilinogen NORMAL NORMAL MG/DL Urine Leukocyte Esterase 3+ H NEGATIVE Urine RBC (Auto) 3+ H NEGATIVE Urine RBC 2-5 H /HPF Urine WBC TNTC H /HPF Urine Squamous Epithelial Cells 5-10 /HPF Urine Crystals NONE /LPF Urine Bacteria LARGE H /HPF Urine Casts NONE /LPF Urine Mucus NEGATIVE /LPF Urine Culture Indicated YES My Orders Orders - PERFECTO BYRNE APRN Ua Culture If Indicated (08/22/17 20:31) Urine Bedside (08/22/17 20:31) Clonidine Tablet (Catapres Tablet) (08/22/17 21:00) Urine Culture (08/22/17 20:39) Ceftriaxone Injection (Rocephin Injectio (08/22/17 21:00) Lidocaine 1% Injection (Xylocaine 1% Inj (08/22/17 21:00) Medications Given in ED Current Medications Medications Dose Ordered Sig/Ian Route Start Time Stop Time Status Last Admin Dose Admin Clonidine HCl 0.1 mg ONCE ONCE PO 08/22/17 21:00 08/22/17 21:01 08/22/17 20:56 0.1 MG Vital Signs/I&O Vital Sign - Last 12Hours 08/22/17 20:38 Temp 98.7 Pulse 85 Resp 18 B/P (MAP) 174/124 Pulse Ox 99 Capillary Refill : Less Than 3 Seconds Blood Pressure Mean: 141 Departure Communication (Admissions) Progress Notes History, urine has cultured ES Lul negative Klebsiella. Resistant to ampicillin and Unasyn but otherwise sensitive. We will use Rocephin here then Cipro in the outpatient setting Impression Impression: Primary Impression: Urinary tract infection Disposition: HOME, SELF-CARE Condition: Stable Departure-Patient Inst. Decision time for Depature: 21:01 Referrals: PAIGE MUÑIZ DO (PCP) Primary Care Physician JAMEEL BRIONES (Family) Primary Care Physician Patient Instructions: Urinary Tract Infection, Adult (DC) Add. Discharge Instructions: 1. Return to ER for any concerns such as fevers, vomiting that prevents you from taking antibiotics 3. All discharge instructions reviewed with patient and/or family. Voiced understanding. Scripts Ciprofloxacin HCl (Ciprofloxacin HCl) 250 Mg Tablet 250 MG PO BID, #10 TAB Prov: PERFECTO BYRNE APRN 08/22/17 PERFECTO BYRNE APRN Aug 22, 2017 20:48
[2017-08-22 20:56] LABS: WBC,URINE TNTC /HPF
[2017-08-22] MEDS ORDERED: cloNIDine 0.1 MG (CATAPRES) TAB PO ONE (21:00)
[2017-08-22] MEDS ORDERED: LIDOCAINE 1% INJ 20 ML (XYLOCAINE) VIAL INJ ONE (21:00)
[2017-08-22] MEDS ORDERED: cefTRIAXone 1 GM (ROCEPHIN) VIAL IM ONE (21:00)
[2017-08-22] MEDS ORDERED: CIPR250T3 PO (21:04)
[2017-08-22 21:48] VITALS: BP 176/98
== END 2017-08-22 21:46 | disposition home or self-care (01) ==
LOC: EDUNIT# 20:27 → ER 20:28
DX: N39.0 Urinary tract infection, site not specified (principal); J45.909 Unspecified asthma, uncomplicated; I10 Essential (primary) hypertension; Q05.9 Spina bifida, unspecified; K21.9 Gastro-esophageal reflux disease without esophagitis; F17.210 Nicotine dependence, cigarettes, uncomplicated; Z87.19 Personal history of other diseases of the digestive system; Z82.49 Family history of ischemic heart disease and other diseases of the circulatory system; Z87.448 Personal history of other diseases of urinary system; Z87.890 Personal history of sex reassignment
CPT/HCPCS: 81000; 84703; 87088; 87186; 96372; 99282

== ENCOUNTER 2017-12-14 01:51 | Emergency (ER) | payer MEDICAID ==
[~2017-12-14] VITALS: Ht 162.6 cm; Wt 71.2 kg
[~2017-12-14 01:51] MED LIST changes: +CIPR250T3 PO
--- OUTSIDE RECORDS SUMMARY | 2017-12-14 02:00 | XMS REPORT | Continuity of Care Document ---
Author Author [employer] Organization [facility] Address Unknown Phone Unavailable Care Team Providers Care Bell Ringer Name Role Phone [employer] Unavailable Unavailable Problems Medications Allergies, Adverse Reactions, Alerts Immunizations Results Vital Signs Encounters Location Location Details Encounter Type Encounter Number Reason For Visit Attending Provider ADM Date DC Date Status Source OUTPATIENT [id number] ANTHONY APPLE 04/24/2014 04/24/2014 Active [facility] OUTPATIENT [id number] INDERJIT HUNT 09/06/2017 09/06/2017 Active [facility] OUTPATIENT [id number] INDERJIT HUNT 09/29/2017 09/29/2017 Active [facility] Luli PERDOMO Active [facility] Procedures Plan of Care Social History Assessment and Plan Family History Advance Directives Functional Status
--- OUTSIDE RECORDS SUMMARY | 2017-12-14 02:01 | XMS REPORT | Encounter Summary ---
Author Author [facility] Organization [facility] Address Unknown Phone Unavailable Care Team Providers Care Cream Beater Name Role Phone Lisette Orozco MD Unavailable Seven Borges MD Unavailable Theresa Turner MD Unavailable Dameon Sandhu MD Unavailable Salma Dee RN Unavailable Unavailable Mirna Suarez RN Unavailable Unavailable Chantal Amado RN Unavailable Unavailable Mendez Aparicio RN Unavailable Unavailable Lynette Gallagher APRN Unavailable Irasema Serrano MD Unavailable Nikko Dias MD Unavailable Angel Sanchez RN Unavailable Unavailable Vaishnavi Franz PCP Reason for Referral * Consult, Test & Treat (Routine) Status Reason Specialty Diagnoses / Referred By Referred To Procedures Contact Contact Closed Specialty Obstetrics & Diagnoses Ernesto Garza Huggins, Melissa, Services Gynecology / Uro Rectocele MD AVILEZ Required [employer] Spina bifida of [address] lumbar region, Blvd [place] [address] unspecified [place] [address] [place], [place] [address] presence (HCC) [id number] Phone: [phone] (ICD-10-CM) - [phone] Rectocele Fax: [phone] (ICD-10-CM) - Spina bifida of lumbar region, unspecified hydrocephalus presence (HCC) Scheduling Instructions Please call & schedule pt for consult. [phone] (home) Encounter Details Date Type Department Care Team Description 10/03/2017 Orders Only [facility] Ernesto Garza MD Rectocele (Primary Dx); Physicians - Internal [address] [facility] Spina bifida of lumbar Medicine [place] [address] region, unspecified [address] [place] [address] hydrocephalus presence [address] unrival [facility] [phone] (HCC) [place] [address] Social History Tobacco Use Types Packs/Day Years Used Date Never Smoker Smokeless Tobacco: Never Used Alcohol Use Drinks/Week oz/Week Comments No Sex Assigned at Date Recorded Not on file as of this encounter Functional Status Functional Status Response Date of Assessment Does the patient have a hearing impairment: No 04/11/2017 as of this encounter Plan of Treatment Name Priority Associated Diagnoses Order Schedule AMB REFERRAL TO OB-TUTORING MANAGER Routine Rectocele Ordered: 10/03/2017 Spina bifida of lumbar region, unspecified hydrocephalus presence (HCC) as of this encounter Visit Diagnoses Diagnosis Rectocele - Primary Spina bifida of lumbar region, unspecified hydrocephalus presence (HCC)
--- OUTSIDE RECORDS SUMMARY | 2017-12-14 02:01 | XMS REPORT | Encounter Summary ---
Author Author [facility] Organization [facility] Address Unknown Phone Unavailable Care Team Providers Care Neuropsychology Service Director Name Role Phone Lisette Orozco MD Unavailable Seven Borges MD Unavailable Theresa Turner MD Unavailable Dameon Sandhu MD Unavailable Salma Dee RN Unavailable Unavailable Mirna Suarez RN Unavailable Unavailable Chantal Amado RN Unavailable Unavailable Mendez Aparicio RN Unavailable Unavailable Lynette Gallagher APRN Unavailable Irasema Serrano MD Unavailable Nikko Dias MD Unavailable Angel Sanchez RN Unavailable Unavailable Vaishnavi Franz PCP Reason for Referral * Radiology Services Status Reason Specialty Diagnoses / Referred By Referred To Procedures Contact Contact Closed Radiology Diagnoses Ernesto Garza Bh2 Gen Radiology Incontinence of MD [address] feces, [address] [place], [place] fecal [place] [address] [address] incontinence [place] Phone: type [phone] P Phone: rocedures [phone] [facility] Fax: CONTRAST [phone] * Radiology Services Status Reason Specialty Diagnoses / Referred By Referred To Procedures Contact Contact Closed Radiology Diagnoses Ernesto Garza Bh2 Gen Radiology Incontinence of [address] feces, [address] [place], [place] fecal [place] [address] [address] incontinence [place], [place] Phone: type [phone] P Phone: rocedures [phone] [place] Fax: CONTRAST [phone] Reason for Visit * Radiology Services Status Reason Specialty Diagnoses / Referred By Referred To Procedures Contact Contact Closed Radiology Diagnoses Ernesto Garza Bh2 Gen Radiology Incontinence of [address] feces, [address] [place], [place] fecal [place] [address] [address] incontinence [place] Phone: type [phone] P Phone: rocedures [phone] [place] Fax: CONTRAST [phone] Encounter Details Date Type Department Care Team Description 09/29/2017 Hospital [facility] Ernesto Garza MD Encounter Hospital Radiology [address] [place] [address] [place] [address] [place] [address] [phone] Social History Tobacco Use Types Packs/Day Years Used Date Never Smoker Smokeless Tobacco: Never Used Alcohol Use Drinks/Week oz/Week Comments No Sex Assigned at Date Recorded Not on file as of this encounter Functional Status Functional Status Response Date of Assessment Does the patient have a hearing impairment: No 04/11/2017 as of this encounter Medications at Time of Discharge [...] by mouth (ACIPHEX) 20 mg tablet daily. testosterone cypionate(+) Inject 100 mg into the (DEPO-TESTOSTERONE) 100 muscle every 7 days. mg/mL injection vitamins, multi PED Take 2 Tabs by mouth (GUMMI BEAR MULTIVITAMIN) daily. Chew as of this encounter Plan of Treatment Not on fileas of this encounter Results * [facility] CONTRAST (09/29/2017 11:25 AM) Specimen Performing Laboratory [facility] RESULTS Impressions 1.Large amount of retained contrast material postevacuation. 2.Wide necked anterior rectocele which does not completely empty after complete evacuation. Approved by Andre Xie M.D. on 09/29/2017 1:14 PM By my electronic signature, I attest that I have personally reviewed the images for this examination and formulated the interpretations and opinions expressed in this report Finalized by Lucho Moura M.D. on 09/29/2017 3:09 PM. Dictated by Andre Xie M.D. on 09/29/2017 11:38 AM. Narrative [facility] CONTRAST CLINICAL INDICATION: Female, 26 years. Incontinence of feces, spina bifida TECHNIQUE: An explanation of the exam was provided to the patient and brief history was obtained. A preliminary overhead radiograph was obtained. The patient orally ingested 240 ml of thin barium prior to the exam. Digital rectal examination was performed and 180 ml of thick barium paste was then instilled into the rectum. While sitting, images were obtained in the right lateral projection while resting, with maximum anal contraction, during straining, during evacuation, and finally at rest following evacuation. The patient tolerated procedure well and left the department in stable condition. TOTAL FLUOROSCOPY TIME: 31 seconds FINDINGS: The preliminary radiograph demonstrates a partially visualized ventriculoperitoneal catheter with the tip overlying the pelvis. Spina bifida is noted in the lower lumbar spine and sacrum. BEENA (anorectal angle) while restin? BEENA with maximum contraction of the anal sphincter: 132? BEENA during strainin? BEENA during evacuation: 142? There is a wide neck anterior rectocele, which does not completely empty after complete evacuation. A large amount of retained contrast material is seen post evacuation. Procedure Note Interface, Radiant Results - 09/29/2017 3:12 PM [employer] [facility] CONTRAST CLINICAL INDICATION: Female, 26 years. Incontinence of feces, spina bifida TECHNIQUE: An explanation of the exam was provided to the patient and brief history was obtained. A preliminary overhead radiograph was obtained. The patient orally ingested 240 ml of thin barium prior to the exam. Digital rectal examination was performed and 180 ml of thick barium paste was then instilled into the rectum. While sitting, images were obtained in the right lateral projection while resting, with maximum anal contraction, during straining, during evacuation, and finally at rest following evacuation. The patient tolerated procedure well and left the department in stable condition. TOTAL FLUOROSCOPY TIME: 31 seconds FINDINGS: The preliminary radiograph demonstrates a partially visualized ventriculoperitoneal catheter with the tip overlying the pelvis. Spina bifida is noted in the lower lumbar spine and sacrum. BEENA (anorectal angle) while restin? BEENA with maximum contraction of the anal sphincter: 132? BEENA during strainin? BEENA during evacuation: 142? There is a wide neck anterior rectocele, which does not completely empty after complete evacuation. A large amount of retained contrast material is seen post evacuation. IMPRESSION 1. Large amount of retained contrast material postevacuation. 2. Wide necked anterior rectocele which does not completely empty after complete evacuation. Approved by Andre Xie M.D. on 09/29/2017 1:14 PM By my electronic signature, I attest that I have personally reviewed the images for this examination and formulated the interpretations and opinions expressed in this report Finalized by Lucho Moura M.D. on 09/29/2017 3:09 PM. Dictated by Andre Xie M.D. on 09/29/2017 11:38 AM. in this encounter Visit Diagnoses Diagnosis Incontinence of feces, unspecified fecal incontinence type Administered Medications Medication Order MAR Action Action Date Dose Rate Site barium sulfate 40 % (VARIBAR NECTAR) Given 09/29/2017 240 mL oral suspension 240 mL 09:30 [employer] 240 mL, Oral, ONCE, 1 dose, Mon09/29/17 at 0930, GI Procedure Area Only barium sulfate 60 % (EZ PASTE) oral Given 09/29/2017 180 mL cream 180 mL 09:30 [employer] 180 mL, Rectal, ONCE, 1 dose, Mon09/29/17 at 0930, GI Procedure Area Only in this encounter
--- OUTSIDE RECORDS SUMMARY | 2017-12-14 02:05 | XMS REPORT | Continuity of Care Document ---
Author Author [facility] of [facility] Address Unknown Phone Unavailable Allergies Active Description Code Type Severity Reaction Onset Reported/Identified Relationship to Patient Clinical Status Yes Latex OA N/A N/A 11/07/2008 Yes nuts Food Allergy N/A N/A 11/07/2008 Yes Latex OA 11/07/2008 Yes nuts Food Allergy 11/07/2008 Yes metformin 500 mg tablet,ER sanam.retention 24 hr Drug Allergy N/A N/A 03/2012 Yes metformin 500 mg tablet,ER sanam.retention 24 hr Drug Allergy 2011 Yes lisinopril 40 mg tablet Drug Allergy N/A N/A 10/09/2012 Yes lisinopril 40 mg tablet Drug Allergy 10/09/2012 Yes Macrobid Drug Allergy N/A N/A 11/27/2013 Yes TREE NUTS TREE NUTS Unknown N/A 04/16/2014 Yes latex [id number] Drug Allergy Unknown N/A 05/16/2017 Yes lisinopril [id number] Drug Allergy Unknown COUGH 05/16/2017 Yes metformin [id number] Drug Allergy Unknown DIARRHEA 05/16/2017 Yes nitrofurantoin [id number] Drug Allergy Unknown BODY ACHES 05/16/2017 Medications There is no data. 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 04/19/2008 PAIGE MUÑIZ DO V20.2 Preventive Medicine New Patient Evaluation Childhood -04/19/2008 PAIGE MUÑIZ DO V20.2 Preventive Medicine New Patient Evaluation Childhood -04/19/2008 MUÑIZ DO, PAIGE K V20.2 Preventive Medicine New Patient Evaluation Childhood -04/19/2008 MUÑIZ DO, PAIGE K V20.2 Preventive Medicine New Patient Evaluation Childhood 02-0904/19/2008 V20.2 Preventive Medicine New Patient Evaluation Childhood 02-0904/19/2008 NAOMI VACA APRN V20.2 Preventive Medicine New Patient Evaluation Childhood 02-0904/19/2008 GLENROY SOMMERSN, RAYMUNDO R V20.2 Preventive Medicine New Patient Evaluation Childhood 02-0904/19/2008 GLENROY REGISTER REPAIRER, RAYMUNDO R V20.2 Preventive Medicine New Patient Evaluation Childhood 02-0904/19/2008 GLENROY REGISTER REPAIRER, RAYMUNDO R V20.2 Preventive Medicine New Patient Evaluation Childhood 02-0904/19/2008 GLENROY SOMMERSN, RAYMUNDO R V20.2 Preventive Medicine New Patient Evaluation Childhood 02-0904/19/2008 GLENROY SOMMERSN, RAYMUNDO R V20.2 Preventive Medicine New Patient Evaluation Childhood 02-0904/19/2008 MUÑIZ DO PAIGE K V20.2 Preventive Medicine New Patient Evaluation Childhood 02-0904/19/2008 GLENROY DE OLIVEIRA, RAYMUNDO R V20.2 Preventive Medicine New Patient Evaluation Childhood 02-0911/07/2008 MUÑIZ DO, PAIGE K 599.0 URINARY TRACT INFECTION 11/07/2008 MUÑIZ DO, PAIGE 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 11/07/2008 MUÑIZ DO, PAIGE K 599.0 URINARY TRACT INFECTION 11/07/2008 MUÑIZ DO, PAIGE 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 11/07/2008 MUÑIZ DO, PAIGE K 599.0 URINARY TRACT INFECTION 11/07/2008 MUÑIZ DO, PAIGE 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 11/07/2008 MUÑIZ DO, PAIGE K 599.0 URINARY TRACT INFECTION 11/07/2008 MUÑIZ DO, PAIGE 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 11/07/2008 599.0 URINARY TRACT INFECTION 11/07/2008 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 11/07/2008 NAOMI VACA APRN 599.0 URINARY TRACT INFECTION 11/07/2008 NAOMI VACA APRN 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 11/07/2008 GLENROY REGISTER REPAIRER, RAYMUNDO R 599.0 URINARY TRACT INFECTION 11/07/2008 GLENROY REGISTER REPAIRER, RAYMUNDO 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 11/07/2008 GLENROY REGISTER REPAIRER, RAYMUNDO R 599.0 URINARY TRACT INFECTION 11/07/2008 GLENROY REGISTER REPAIRER, RAYMUNDO 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0 URINARY TRACT INFECTION 11/07/2008 MARY KAY DO PAIGE 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 11/07/2008 GLENROY REGISTER REPAIRER, RAYMUNDO R 599.0 URINARY TRACT INFECTION 11/07/2008 GLENROY REGISTER REPAIRER, RAYMUNDO 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 04/09/2009 MUÑIZ DO PAIGE K 741.90 SPINA BIFIDA UNSPECIFIED REGION WITHOUT HYDROCEPHALUS 04/09/2009 MUÑIZ DO PAIGE K V05.3 HEPATITIS VIRAL/ALL 04/09/2009 MUÑIZ DO PAIGE K 741.90 SPINA BIFIDA UNSPECIFIED REGION WITHOUT HYDROCEPHALUS 04/09/2009 MUÑIZ DO PAIGE K V05.3 HEPATITIS VIRAL/ALL 04/09/2009 MUÑIZ DO, PAIGE K 741.90 SPINA BIFIDA UNSPECIFIED REGION WITHOUT HYDROCEPHALUS 04/09/2009 MUÑIZ DO PAIGE K V05.3 HEPATITIS VIRAL/ALL 04/09/2009 MUÑIZ DO, PAIEG K 741.90 SPINA BIFIDA UNSPECIFIED REGION WITHOUT HYDROCEPHALUS 04/09/2009 MUÑIZ DO PAIGE K V05.3 HEPATITIS VIRAL/ALL 04/09/2009 741.90 SPINA BIFIDA UNSPECIFIED REGION WITHOUT HYDROCEPHALUS 04/09/2009 V05.3 HEPATITIS VIRAL/ALL 04/09/2009 VACA REGISTER REPAIRER, NAOMI M 741.90 SPINA BIFIDA UNSPECIFIED REGION WITHOUT HYDROCEPHALUS 04/09/2009 VACA REGISTER REPAIRER, NAOMI M V05.3 HEPATITIS VIRAL/ALL 04/09/2009 GLENROY REGISTER REPAIRER, RAYMUNDO R 741.90 SPINA BIFIDA UNSPECIFIED REGION WITHOUT HYDROCEPHALUS 04/09/2009 GLENROY REGISTER REPAIRER, RAYMUNDO R V05.3 HEPATITIS VIRAL/ALL 04/09/2009 GLENROY REGISTER REPAIRER, RAYMUNDO R 741.90 SPINA BIFIDA UNSPECIFIED REGION WITHOUT HYDROCEPHALUS 04/09/2009 GLENROY REGISTER REPAIRER, RAYMUNDO R V05.3 HEPATITIS VIRAL/ALL 04/09/2009 GLENROY REGISTER REPAIRER, RAYMUNDO R 741.90 SPINA BIFIDA UNSPECIFIED REGION WITHOUT HYDROCEPHALUS 04/09/2009 GLENROY REGISTER REPAIRER, RAYMUNDO R V05.3 HEPATITIS VIRAL/ALL 04/09/2009 GLENROY REGISTER REPAIRER, RAYMUNDO R 741.90 SPINA BIFIDA UNSPECIFIED REGION WITHOUT HYDROCEPHALUS 04/09/2009 [facility] REGISTER REPAIRER, RAYMUNDO R V05.3 HEPATITIS VIRAL/ALL 04/09/2009 [facility] REGISTER REPAIRER, RAYMUNDO R 741.90 SPINA BIFIDA UNSPECIFIED REGION WITHOUT HYDROCEPHALUS 04/09/2009 [facility] REGISTER REPAIRER, RAYMUNDO R V05.3 HEPATITIS VIRAL/ALL 04/09/2009 MUÑIZ DO, PAIGE K 741.90 SPINA BIFIDA UNSPECIFIED REGION WITHOUT HYDROCEPHALUS 04/09/2009 MUÑIZ DO, PAIGE K V05.3 HEPATITIS VIRAL/ALL 04/09/2009 [facility] REGISTER REPAIRER, RAYMUNDO R 741.90 SPINA BIFIDA UNSPECIFIED REGION WITHOUT HYDROCEPHALUS 04/09/2009 [facility] REGISTER REPAIRER, RAYMUNDO R V05.3 HEPATITIS VIRAL/ALL 08/17/2010 [...] VERTIGO 08/17/2010 786.52 CHEST WALL PAIN 08/17/2010 NAOMI VACA APRN M 780.4 DIZZINESS AND VERTIGO 08/17/2010 NAOMI VACA APRN M 786.52 CHEST WALL PAIN 08/17/2010 GLENROY REGISTER REPAIRER, RAYMUNDO R 780.4 DIZZINESS AND VERTIGO 08/17/2010 GLENROY REGISTER REPAIRER, RAYMUNDO R 786.52 CHEST WALL PAIN 08/17/2010 GLENROY REGISTER REPAIRER, RAYMUNDO R 780.4 DIZZINESS AND VERTIGO 08/17/2010 GLENROY REGISTER REPAIRER, RAYMUNDO R 786.52 CHEST WALL PAIN 08/17/2010 GLENROY REGISTER REPAIRER, RAYMUNDO R 780.4 DIZZINESS AND VERTIGO 08/17/2010 GLENROY REGISTER REPAIRER, RAYMUNDO R 786.52 CHEST WALL PAIN 08/17/2010 GLENROY REGISTER REPAIRER, RAYMUNDO R 780.4 DIZZINESS AND VERTIGO 08/17/2010 GLENROY REGISTER REPAIRER, RAYMUNDO R 786.52 CHEST WALL PAIN 08/17/2010 GLENROY REGISTER REPAIRER, RAYMUNDO R 780.4 DIZZINESS AND VERTIGO 08/17/2010 GLENROY REGISTER REPAIRER, RAYMUNDO R 786.52 CHEST WALL PAIN 08/17/2010 MARY KAY PALACIOS PAIGE K 780.4 DIZZINESS AND VERTIGO 08/17/2010 MARY KAY PALACIOS PAIGE K 786.52 CHEST WALL PAIN 08/17/2010 GLENROY REGISTER REPAIRER, RAYMUNDO R 780.4 DIZZINESS AND VERTIGO 08/17/2010 GLENROY REGISTER REPAIRER, RAYMUNDO R 786.52 CHEST WALL PAIN 11/11/2010 Ot 599.0 URIN TRACT INFECTION NOS 11/11/2010 Ot 729.1 MYALGIA AND MYOSITIS NOS 01/04/2011 Ot 038.9 SEPTICEMIA NOS 01/04/2011 Ot 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0 FAMILY HISTORY OF DIABETES MELLITUS 03/17/2011 GLENROY REGISTER REPAIRER, RAYMUNDO R 754.70 TALIPES UNSPECIFIED 03/17/2011 GLENROY REGISTER REPAIRER, RAYMUNDO R 790.29 OTHER ABNORMAL GLUCOSE 03/17/2011 GLENROY REGISTER REPAIRER, RAYMUNDO R V18.0 FAMILY HISTORY OF DIABETES MELLITUS 03/17/2011 GLENROY REGISTER REPAIRER, RAYMUNDO R 754.70 TALIPES UNSPECIFIED 03/17/2011 GLENROY REGISTER REPAIRER, RAYMUNDO R 790.29 OTHER ABNORMAL GLUCOSE 03/17/2011 GLENROY REGISTER REPAIRER, RAYMUNDO R V18.0 FAMILY HISTORY OF DIABETES MELLITUS 03/17/2011 GLENROY REGISTER REPAIRER, RAYMUNDO R 754.70 TALIPES UNSPECIFIED 03/17/2011 GLENROY REGISTER REPAIRER, RAYMUNDO R 790.29 OTHER ABNORMAL GLUCOSE 03/17/2011 GLENROY REGISTER REPAIRER, RAYMUNDO R V18.0 FAMILY HISTORY OF DIABETES MELLITUS 03/17/2011 GLENROY REGISTER REPAIRER, RAYMUNDO R 754.70 TALIPES UNSPECIFIED 03/17/2011 GLENROY REGISTER REPAIRER, RAYMUNDO R 790.29 OTHER ABNORMAL GLUCOSE 03/17/2011 GLENROY REGISTER REPAIRER, RAYMUNDO R V18.0 FAMILY HISTORY OF DIABETES MELLITUS 03/17/2011 MUÑIZ DO, PAIGE K 754.70 TALIPES UNSPECIFIED 03/17/2011 MUÑIZ DO, PAIGE K 790.29 OTHER ABNORMAL GLUCOSE 03/17/2011 MUÑIZ DO, PAIGE K V18.0 FAMILY HISTORY OF DIABETES MELLITUS 03/17/2011 GLENROY REGISTER REPAIRER, RAYMUNDO R 754.70 TALIPES UNSPECIFIED 03/17/2011 GLENROY REGISTER REPAIRER, RAYMUNDO R 790.29 OTHER ABNORMAL GLUCOSE 03/17/2011 GLENROY REGISTER REPAIRER, RAYMUNDO R V18.0 FAMILY HISTORY OF DIABETES MELLITUS 04/14/2011 MUÑIZ DO, PAIGE K 278.02 OVERWEIGHT 04/14/2011 MUÑIZ DO, PAIGE K 278.02 OVERWEIGHT 04/14/2011 MUÑIZ DO, PAIGE K 278.02 OVERWEIGHT 04/14/2011 MUÑIZ DO, PAIGE K 278.02 OVERWEIGHT 04/14/2011 278.02 OVERWEIGHT 04/14/2011 NAOMI VACA APRN 278.02 OVERWEIGHT 04/14/2011 GLENROY REGISTER REPAIRER, RAYMUNDO R 278.02 OVERWEIGHT 04/14/2011 GLENROY REGISTER REPAIRER, RAYMUNDO R 278.02 OVERWEIGHT 04/14/2011 GLENROY REGISTER REPAIRER, RAYMUNDO R 278.02 OVERWEIGHT 04/14/2011 GLENROY REGISTER REPAIRER, RAYMUNDO R 278.02 OVERWEIGHT 04/14/2011 GLENROY REGISTER REPAIRER, RAYMUNDO R 278.02 OVERWEIGHT 04/14/2011 MUÑIZ DO, PAIGE K 278.02 OVERWEIGHT 04/14/2011 GLENROY REGISTER REPAIRER, RAYMUNDO R 278.02 OVERWEIGHT 06/28/2011 MUÑIZ DO, PAIGE K 493.90 ASTHMA UNSPECIFIED 06/28/2011 MUÑIZ DO, PAIGE K 493.90 ASTHMA UNSPECIFIED 06/28/2011 MUÑIZ DO, PAIGE K 493.90 ASTHMA UNSPECIFIED 06/28/2011 MUÑIZ DO, PAIGE K 493.90 ASTHMA UNSPECIFIED 06/28/2011 493.90 ASTHMA UNSPECIFIED 06/28/2011 NAOMI VACA APRN 493.90 ASTHMA UNSPECIFIED 06/28/2011 GLENROY REGISTER REPAIRER, RAYMUNDO R 493.90 ASTHMA UNSPECIFIED 06/28/2011 GLENROY REGISTER REPAIRER, RAYMUNDO R 493.90 ASTHMA UNSPECIFIED 06/28/2011 GLENROY SOMMERSN, RAYMUNDO R 493.90 ASTHMA UNSPECIFIED 06/28/2011 GLENROY REGISTER REPAIRER, RAYMUNDO R 493.90 ASTHMA UNSPECIFIED 06/28/2011 GLENROY DE OLIVEIRA, RAYMUNDO R 493.90 ASTHMA UNSPECIFIED 06/28/2011 MUÑIZ PAIGE K 493.90 ASTHMA UNSPECIFIED 06/28/2011 GLENROY DE OLIVEIRA, RAYMUNDO R 493.90 ASTHMA UNSPECIFIED 06/30/2011 Ot V57.1 PHYSICAL THERAPY NEC 06/30/2011 Ot V58.78 AFTERCARE POST SURGERY MUSCULOSKELETAL S 06/26/2012 MARY KAY PALACIOS PAIGE K 530.81 GERD 06/26/2012 MARY KAY PALACIOS PAIGE K 780.52 INSOMNIA UNSPECIFIED 06/26/2012 MARY KAY PALACIOS PAIGE K 796.2 ELEVATED BLOOD PRESSURE READING WITHOUT DIAGNOSIS OF HYPERTENSION 06/26/2012 MUÑIZ DO PAIGE K 530.81 GERD 06/26/2012 MUÑIZ DO, PAIGE K 780.52 INSOMNIA UNSPECIFIED 06/26/2012 MUÑIZ DO, PAIGE K 796.2 ELEVATED BLOOD PRESSURE READING WITHOUT DIAGNOSIS OF HYPERTENSION 06/26/2012 MUÑIZ DO PAIGE K 530.81 GERD 06/26/2012 MRAY KAY PALACIOS PAIGE K 780.52 INSOMNIA UNSPECIFIED 06/26/2012 MARY KAY PALACIOS PAIGE K 796.2 ELEVATED BLOOD PRESSURE READING WITHOUT DIAGNOSIS OF HYPERTENSION 06/26/2012 MUÑIZ PAIGE K 530.81 GERD 06/26/2012 MUÑIZ PAIGE K 780.52 INSOMNIA UNSPECIFIED 06/26/2012 MARY KAY PALACIOS PAIGE K 796.2 ELEVATED BLOOD PRESSURE READING [...] OLIVEIRA RAYMUNDO R 780.52 INSOMNIA UNSPECIFIED 06/26/2012 ALENA TIM APRNINA R 796.2 ELEVATED BLOOD PRESSURE READING WITHOUT DIAGNOSIS OF HYPERTENSION 06/26/2012 GLENROY DE OLIVEIRA RAYMUNDO R 530.81 GERD 06/26/2012 GLENROY DE OLIVEIRA RAYMUNDO R 780.52 INSOMNIA UNSPECIFIED 06/26/2012 GLENROY REGISTER REPAIRER, RAYMUNDO R 796.2 ELEVATED BLOOD PRESSURE READING WITHOUT DIAGNOSIS OF HYPERTENSION 06/26/2012 GLENROY REGISTER REPAIRER, RAYMUNDO R 530.81 GERD 06/26/2012 GLENROY REGISTER REPAIRER, RAYMUNDO R 780.52 INSOMNIA UNSPECIFIED 06/26/2012 GLENROY REGISTER REPAIRER, RAYMUNDO R 796.2 ELEVATED BLOOD PRESSURE READING WITHOUT DIAGNOSIS OF HYPERTENSION 06/26/2012 GLENROY REGISTER REPAIRER, RAYMUNDO R 530.81 GERD 06/26/2012 GLENROY REGISTER REPAIRER, RAYMUNDO R 780.52 INSOMNIA UNSPECIFIED 06/26/2012 GLENROY REGISTER REPAIRER, RAYMUNDO R 796.2 ELEVATED BLOOD PRESSURE READING WITHOUT DIAGNOSIS OF HYPERTENSION 06/26/2012 GLENROY REGISTER REPAIRER, RAYMUNDO R 530.81 GERD 06/26/2012 GLENROY REGISTER REPAIRER, RAYMUNDO R 780.52 INSOMNIA UNSPECIFIED 06/26/2012 GLENROY REGISTER REPAIRER, RAYMUNDO R 796.2 ELEVATED BLOOD PRESSURE READING WITHOUT DIAGNOSIS OF HYPERTENSION 06/26/2012 MUÑIZ DO, PAIGE K 530.81 GERD 06/26/2012 MUÑIZ DO, PAIGE K 780.52 INSOMNIA UNSPECIFIED 06/26/2012 MUÑIZ DO, PAIGE K 796.2 ELEVATED BLOOD PRESSURE READING WITHOUT DIAGNOSIS OF HYPERTENSION 06/26/2012 GLENROY REGISTER REPAIRER, RAYMUNDO R 530.81 GERD 06/26/2012 GLENROY REGISTER REPAIRER, RAYMUNDO R 780.52 INSOMNIA UNSPECIFIED 06/26/2012 GLENROY REGISTER REPAIRER, RAYMUNDO R 796.2 ELEVATED BLOOD PRESSURE [...] NAOMI VACA APRN 780.79 fatigue 07/12/2012 GLENROY REGISTER REPAIRER, RAYMUNDO R 401.1 HYPERTENSION, BENIGN ESSENTIAL 07/12/2012 GLENROY REGISTER REPAIRER, RAYMUNDO R 780.79 fatigue 07/12/2012 GLENROY REGISTER REPAIRER, RAYMUNDO R 401.1 HYPERTENSION, BENIGN ESSENTIAL 07/12/2012 GLENROY REGISTER REPAIRER, RAYMUNDO R 780.79 fatigue 07/12/2012 GLENROY REGISTER REPAIRER, RAYMUNDO R 401.1 HYPERTENSION, BENIGN ESSENTIAL 07/12/2012 GLENROY REGISTER REPAIRER, RAYMUNDO R 780.79 fatigue 07/12/2012 GLENROY REGISTER REPAIRER, RAYMUNDO R 401.1 HYPERTENSION, BENIGN ESSENTIAL 07/12/2012 GLENROY REGISTER REPAIRER, RAYMUNDO R 780.79 fatigue 07/12/2012 GLENROY REGISTER REPAIRER, RAYMUNDO R 401.1 HYPERTENSION, BENIGN ESSENTIAL 07/12/2012 GLENROY REGISTER REPAIRER, RAYMUNDO R 780.79 fatigue 07/12/2012 MUÑIZ DO, PAIGE K 401.1 HYPERTENSION, BENIGN ESSENTIAL 07/12/2012 MUÑIZ DO, PAIGE K 780.79 fatigue 07/12/2012 GLENROY REGISTER REPAIRER, RAYMUNDO R 401.1 HYPERTENSION, BENIGN ESSENTIAL 07/12/2012 GLENROY REGISTER REPAIRER, RAYMUNDO R 780.79 fatigue 07/28/2012 Ot 401.9 HYPERTENSION NOS 07/28/2012 Ot 599.0 URIN TRACT INFECTION NOS 07/28/2012 Ot 784.0 HEADACHE 08/08/2012 MUÑIZ DO, PAIGE K 272.1 HYPERTRIGLYCERIDEMIA 08/08/2012 MUÑIZ DO, PAIGE K 272.1 HYPERTRIGLYCERIDEMIA 08/08/2012 MUÑIZ DO, PAIGE K 272.1 HYPERTRIGLYCERIDEMIA 08/08/2012 MUÑIZ DO, PAIGE K 272.1 HYPERTRIGLYCERIDEMIA 08/08/2012 272.1 HYPERTRIGLYCERIDEMIA 08/08/2012 NAOMI VACA APRN 272.1 HYPERTRIGLYCERIDEMIA 08/08/2012 GLENROY REGISTER REPAIRER, RAYMUNDO R 272.1 HYPERTRIGLYCERIDEMIA 08/08/2012 GLENROY REGISTER REPAIRER, RAYMUNDO R 272.1 HYPERTRIGLYCERIDEMIA 08/08/2012 GLENROY REGISTER REPAIRER, RAYMUNDO R 272.1 HYPERTRIGLYCERIDEMIA 08/08/2012 GLENROY REGISTER REPAIRER, RAYMUNDO R 272.1 HYPERTRIGLYCERIDEMIA 08/08/2012 GLENROY REGISTER REPAIRER, RAYMUNDO R 272.1 HYPERTRIGLYCERIDEMIA 08/08/2012 MUÑIZ DO, PAIGE K 272.1 HYPERTRIGLYCERIDEMIA 08/08/2012 GLENROY SOMMERSN, RAYMUNDO R 272.1 HYPERTRIGLYCERIDEMIA 09/06/2012 MUÑIZ DO, PAIGE K 786.2 COUGH 09/06/2012 MUÑIZ DO, PAIGE K 786.2 COUGH 09/06/2012 MUÑIZ DO, PAIGE K 786.2 COUGH 09/06/2012 786.2 COUGH 09/06/2012 NAOMI VACA APRN 786.2 COUGH 09/06/2012 GLENROY REGISTER REPAIRER, RAYMUNDO R 786.2 COUGH 09/06/2012 GLENROY REGISTER REPAIRER, RAYMUNDO R 786.2 COUGH 09/06/2012 GLENROY SOMMERSN, RAYMUNDO R 786.2 COUGH 09/06/2012 GLENROY REGISTER REPAIRER, RAYMUNDO R 786.2 COUGH 09/06/2012 GLENROY REGISTER REPAIRER, RAYMUNDO R 786.2 COUGH 09/06/2012 MUÑIZ DO, PAIGE K 786.2 COUGH 09/06/2012 GLENROY SOMMERSN, RAYMUNDO R 786.2 COUGH 03/26/2013 TERRY CURRY Ot 346.90 MIGRAINE UNSPECIFIED W/O INTRACT MGRN W/ 03/26/2013 TERRY CURRY Ot 599.0 URIN TRACT INFECTION NOS 03/26/2013 TERRY CURRY Ot 784.0 HEADACHE 10/28/2013 AMBIKA AVILEZ, ANTHONY Abdullahi Ot 736.70 ACQ ANKLE-FOOT DEF NOS 10/28/2013 AMBIKA AVILEZ, ANTHONY Abdullahi Ot V57.1 PHYSICAL THERAPY NEC 10/28/2013 ANTHONY APPLE MD Ot V58.78 AFTERCARE POST SURGERY MUSCULOSKELETAL S 01/10/2014 GLENROY DE OLIVEIRA RAYMUNDO R V72.84 PRE-OPERATIVE EXAM 01/10/2014 GLENROY DE OLIVEIRA RAYMUNDO R V72.84 PRE-OPERATIVE EXAM 01/10/2014 GLENROY DE OLIVEIRA RAYMUNDO R V72.84 PRE-OPERATIVE EXAM 01/10/2014 MARY KAY PALACIOS PAIGE K V72.84 PRE-OPERATIVE EXAM 01/10/2014 GLENROY DE [...] INSTRUM NEC 04/30/2015 TERRY CURRY Ot V06.1 [id number], COMBINED [ 05/07/2015 ELIE RANKIN DO Ot V58.32 ENCOUNTER FOR REMOVAL OF SUTURES 05/12/2015 ELIE RANKIN DO Ot V58.32 05/13/2015 ELIE RANKIN DO Ot V58.32 ENCOUNTER FOR REMOVAL OF SUTURES 06/28/2015 JOY POLANCO MD Ot 787.20 DYSPHAGIA, UNSPECIFIED 04/15/2016 Ot 730.27 04/15/2016 Ot 790.29 OTHER ABNORMAL GLUCOSE 04/15/2016 Ot V18.0 FAM HX- DIABETES MELLITUS 04/15/2016 KENDY INGRAM DO Ot M54.5 [...] APRN Ot E04.9 NONTOXIC GOITER, UNSPECIFIED 11/25/2016 MAGDALENO, SHIVAM R REGISTER REPAIRER Ot E07.89 OTHER SPECIFIED DISORDERS OF THYROID 11/26/2016 SHIVAM MAGDALENO R REGISTER REPAIRER Ot E07.89 OTHER SPECIFIED DISORDERS OF THYROID 11/29/2016 MAGDALENO SHIVAM R REGISTER REPAIRER Ot E07.89 OTHER SPECIFIED DISORDERS OF THYROID 11/30/2016 RASTA SHIVAM R REGISTER REPAIRER Ot E07.89 OTHER SPECIFIED DISORDERS OF THYROID 11/30/2016 MAGDALENO SHIVAM R REGISTER REPAIRER Ot E07.89 OTHER SPECIFIED DISORDERS OF THYROID 12/05/2016 LETY MAGDALENOELE R REGISTER REPAIRER Ot E07.89 OTHER SPECIFIED DISORDERS OF THYROID 12/07/2016 MAGDALENO SHIVAM R REGISTER REPAIRER Ot E07.89 OTHER SPECIFIED DISORDERS OF THYROID 12/13/2016 RASTA SHIVAM R REGISTER REPAIRER Ot E07.89 OTHER SPECIFIED DISORDERS OF THYROID 12/19/2016 Ot 730.27 12/19/2016 MAGDALENO SHIVAM R REGISTER REPAIRER Ot E04.9 NONTOXIC GOITER, UNSPECIFIED 12/19/2016 LETY MAGDALENOELE Luz Maria REGISTER REPAIRER Ot E07.89 OTHER SPECIFIED DISORDERS OF THYROID 12/19/2016 RASTA SHIVAM R REGISTER REPAIRER Ot E07.89 OTHER SPECIFIED DISORDERS OF THYROID 12/23/2016 MAGDALENO SHIVAM R REGISTER REPAIRER Ot E07.89 OTHER SPECIFIED DISORDERS OF THYROID 12/26/2016 MADL, JAMEEL L TREE MARKER Ot M79.671 PAIN IN RIGHT FOOT 12/26/2016 MADL, JAMEEL L TREE MARKER Ot M79.672 PAIN IN LEFT FOOT 12/26/2016 MADL, JAMEEL L TREE MARKER Ot 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 12/27/2016 MADL, JAMEEL L TREE MARKER Ot M79.671 PAIN IN RIGHT FOOT 12/27/2016 MADL, JAMEEL L TREE MARKER Ot M79.672 PAIN IN LEFT FOOT 12/27/2016 MADL, JAMEEL L TREE MARKER Ot 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 12/27/2016 MADL, JAMEEL L TREE MARKER Ot M79.671 PAIN IN RIGHT FOOT 12/27/2016 MADL, JAMEEL L TREE MARKER Ot M79.672 PAIN IN LEFT FOOT 12/27/2016 MADL, JAMEEL L TREE MARKER Ot 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 12/30/2016 MADLJAMEEL TREE MARKER Ot M79.671 PAIN IN RIGHT FOOT 12/30/2016 MADL, JAMEEL L TREE MARKER Ot M79.672 PAIN IN LEFT FOOT 12/30/2016 JOVANNILYESICAA L TREE MARKER Ot 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 12/30/2016 MADLYESICAA L TREE MARKER Ot M79.671 PAIN IN RIGHT FOOT 12/30/2016 MADL, JAMEEL L TREE MARKER Ot M79.672 PAIN IN LEFT FOOT 12/30/2016 MADL, JAMEEL L TREE MARKER Ot 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 12/30/2016 SYED MEREDITH REGISTER REPAIRER Ot 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, 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 12/30/2016 SYED MEREDITH APRN Ot 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, 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 12/30/2016 SYED MEREDITH APRN Ot 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, 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 12/30/2016 SYED MEREDITH REGISTER REPAIRER Ot 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, 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 01/11/2017 SYED MEREDITH REGISTER REPAIRER Ot 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, 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 01/12/2017 JOVANNILJAMEEL TREE MARKER Ot M79.671 PAIN IN RIGHT FOOT 01/12/2017 JOVANNILJAMEEL L TREE MARKER Ot M79.672 PAIN IN LEFT FOOT 01/12/2017 JOVANNILJAMEEL L TREE MARKER Ot 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 01/21/2017 PERFECTO BYRNE REGISTER REPAIRER Ot I10 ESSENTIAL (PRIMARY) HYPERTENSION 01/21/2017 PERFECTO BYRNE APRN Ot N31.9 NEUROMUSCULAR DYSFUNCTION OF BLADDER, UN 01/21/2017 PERFECTO BYRNE APRN Ot N39.0 URINARY TRACT INFECTION, SITE NOT SPECIF 01/21/2017 PERFECTO BYRNE APRN Ot Q05.9 SPINA BIFIDA, UNSPECIFIED 01/21/2017 PERFECTO BYRNE REGISTER REPAIRER Ot R35.0 FREQUENCY OF MICTURITION 01/21/2017 PERFECTO BYRNE REGISTER REPAIRER Ot S90.821A BLISTER (NONTHERMAL), RIGHT FOOT, INITIA 01/21/2017 PERFECTO BYRNE APRN Ot S90.822A BLISTER (NONTHERMAL), LEFT FOOT, INITIAL 01/21/2017 PERFECTO BYRNE APRN Ot Z96.0 PRESENCE OF UROGENITAL IMPLANTS 01/21/2017 PERFECTO BYRNE APRN Ot Z98.890 OTHER SPECIFIED POSTPROCEDURAL STATES 01/23/2017 MADL, JAMEEL L TREE MARKER Ot M79.671 PAIN IN RIGHT FOOT 01/23/2017 MADL, JAMEEL L TREE MARKER Ot M79.672 PAIN IN LEFT FOOT 01/23/2017 MADL, JAMEEL L TREE MARKER Ot 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 [...] FREQUENCY OF MICTURITION 01/27/2017 BYRNE, PETER J REGISTER REPAIRER Ot S90.821A BLISTER (NONTHERMAL), RIGHT FOOT, INITIA 01/27/2017 PERFECTO BYRNE REGISTER REPAIRER Ot S90.822A BLISTER (NONTHERMAL), LEFT FOOT, INITIAL 01/27/2017 PERFECTO BYRNE REGISTER REPAIRER Ot Z96.0 PRESENCE OF UROGENITAL IMPLANTS 01/27/2017 PERFECTO BYRNE REGISTER REPAIRER Ot Z98.890 OTHER SPECIFIED POSTPROCEDURAL STATES 02/07/2017 MADL, JAMEEL L TREE MARKER Ot M79.671 PAIN IN RIGHT FOOT 02/07/2017 MADL, JAMEEL L TREE MARKER Ot M79.672 PAIN IN LEFT FOOT 02/07/2017 MADL, JAMEEL L TREE MARKER Ot 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 03/19/2017 TERRY CURRY Ot I10 ESSENTIAL (PRIMARY) HYPERTENSION 03/19/2017 TERRY CURRY Ot J45.909 UNSPECIFIED ASTHMA, UNCOMPLICATED 03/19/2017 TERRY CURRY Ot R19.7 DIARRHEA, UNSPECIFIED 03/21/2017 TERRY CURRY Ot I10 ESSENTIAL (PRIMARY) HYPERTENSION 03/21/2017 TERRY CURRY Ot J45.909 UNSPECIFIED ASTHMA, UNCOMPLICATED 03/21/2017 TERRY CURRY Ot R19.7 DIARRHEA, UNSPECIFIED 04/08/2017 TERRY CURRY Ot I10 ESSENTIAL (PRIMARY) HYPERTENSION 04/08/2017 TERRY CURRY Ot J45.909 UNSPECIFIED ASTHMA, UNCOMPLICATED 04/08/2017 TERRY CURRY Ot K21.9 GASTRO-ESOPHAGEAL REFLUX DISEASE WITHOUT 04/08/2017 TERRY CURRY Ot M86.9 OSTEOMYELITIS, UNSPECIFIED 04/08/2017 TERRY CURRY Ot N39.0 URINARY TRACT INFECTION, SITE NOT SPECIF 04/08/2017 TERRY CURRY Ot Q05.9 SPINA BIFIDA, UNSPECIFIED 04/08/2017 TERRY CURRY Ot R11.2 NAUSEA WITH VOMITING, UNSPECIFIED 04/08/2017 TERRY CURRY Ot Z87.448 PERSONAL HISTORY OF OTHER DISEASES OF UR 04/11/2017 TERRY CURRY Ot I10 ESSENTIAL (PRIMARY) HYPERTENSION 04/11/2017 TERRY CURRY Ot J45.909 UNSPECIFIED ASTHMA, UNCOMPLICATED 04/11/2017 TERRY CURRY Ot K21.9 GASTRO-ESOPHAGEAL REFLUX DISEASE WITHOUT 04/11/2017 TERRY CURRY Ot M86.9 OSTEOMYELITIS, UNSPECIFIED 04/11/2017 TERRY CURRY Ot N39.0 URINARY TRACT INFECTION, SITE NOT SPECIF 04/11/2017 TERRY CURRY Ot Q05.9 SPINA BIFIDA, UNSPECIFIED 04/11/2017 TERRY CURRY Ot R11.2 NAUSEA WITH VOMITING, UNSPECIFIED 04/11/2017 TERRY CURRY Ot Z87.448 PERSONAL HISTORY OF OTHER DISEASES OF UR 05/12/2017 DRAGAN FINLEY DO Ot K21.9 GASTRO-ESOPHAGEAL REFLUX DISEASE WITHOUT 05/12/2017 DRAGAN FINLEY DO Ot R19.7 DIARRHEA, UNSPECIFIED 05/12/2017 DRAGAN FINLEY DO Ot Z01.818 ENCOUNTER FOR OTHER PREPROCEDURAL EXAMIN 05/15/2017 DRAGAN FINLEY DO Ot K21.9 GASTRO-ESOPHAGEAL REFLUX DISEASE WITHOUT 05/15/2017 DRAGAN FINLEY DO Ot R19.7 DIARRHEA, UNSPECIFIED 05/15/2017 DRAGAN FINLEY DO Ot Z01.818 ENCOUNTER FOR OTHER PREPROCEDURAL EXAMIN 05/16/2017 DRAGAN FINLEY DO Ot G91.9 HYDROCEPHALUS, UNSPECIFIED 05/16/2017 DRAGAN FINLEY DO Ot I10 ESSENTIAL (PRIMARY) HYPERTENSION 05/16/2017 DRAGAN FINLEY DO Ot K29.70 GASTRITIS, UNSPECIFIED, WITHOUT BLEEDING 05/16/2017 DRAGAN FINLEY DO Ot K29.80 DUODENITIS WITHOUT BLEEDING 05/16/2017 DRAGAN FINLEY DO Ot N28.9 DISORDER OF KIDNEY AND URETER, UNSPECIFI 05/16/2017 DRAGAN FINLEY DO Ot R19.4 CHANGE IN BOWEL HABIT 05/16/2017 DRAGAN FINLEY DO Ot Z79.899 OTHER GROUP HOME (CURRENT) DRUG THERAPY 05/16/2017 DRAGAN FINLEY DO Ot 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 05/17/2017 FINLEY DO, DRAGAN D Ot G91.9 HYDROCEPHALUS, UNSPECIFIED 05/17/2017 FINLEY DO, DRAGAN D Ot I10 ESSENTIAL (PRIMARY) HYPERTENSION 05/17/2017 FINLEY DO, DRAGAN D Ot K29.70 GASTRITIS, UNSPECIFIED, WITHOUT BLEEDING 05/17/2017 FINLEY DO, DRAGAN D Ot K29.80 DUODENITIS WITHOUT BLEEDING 05/17/2017 FINLEY DO, DRAGAN D Ot N28.9 DISORDER OF KIDNEY AND URETER, UNSPECIFI 05/17/2017 FINLEY DO, DRAGAN D Ot R19.4 CHANGE IN BOWEL HABIT 05/17/2017 FINLEY DO, DRAGAN D Ot Z79.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 05/17/2017 FINLEY DO, DRAGAN D Ot 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 05/18/2017 FINLEY DO, DRAGAN D Ot G91.9 HYDROCEPHALUS, UNSPECIFIED 05/18/2017 FINLEY DO, DRAGAN D Ot I10 ESSENTIAL (PRIMARY) HYPERTENSION 05/18/2017 FINLEY DO, DRAGAN D Ot K29.70 GASTRITIS, UNSPECIFIED, WITHOUT BLEEDING 05/18/2017 FINLEY DO, DRAGAN D Ot K29.80 DUODENITIS WITHOUT BLEEDING 05/18/2017 FINLEY DO, DRAGAN D Ot N28.9 DISORDER OF KIDNEY AND URETER, UNSPECIFI 05/18/2017 FINLEY DO, DRAGAN D Ot R19.4 CHANGE IN BOWEL HABIT 05/18/2017 FINLEY DO, DRAGAN D Ot Z79.899 OTHER GROUP HOME (CURRENT) DRUG THERAPY 05/18/2017 FINLEY DO, DRAGAN D Ot 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 06/04/2017 EUGENIO AVILEZ, TIFFANY Ragsdale Ot F17.210 NICOTINE DEPENDENCE, CIGARETTES, UNCOMPL 06/04/2017 EUGENIO AVILEZ, TIFFANY T Ot I10 ESSENTIAL (PRIMARY) HYPERTENSION 06/04/2017 TIFFANY BECKER MD Ot J45.909 UNSPECIFIED ASTHMA, UNCOMPLICATED 06/04/2017 TIFFANY BECKER MD Ot K21.9 GASTRO-ESOPHAGEAL REFLUX DISEASE WITHOUT 06/04/2017 TIFFANY BECKER MD Ot K52.9 NONINFECTIVE GASTROENTERITIS AND COLITIS 06/04/2017 TIFFANY BECKER MD Ot N39.0 URINARY TRACT INFECTION, SITE NOT SPECIF 06/04/2017 TIFFANY BECKER MD Ot R10.10 UPPER ABDOMINAL PAIN, UNSPECIFIED 06/04/2017 TIFFANY BECKER MD Ot R11.2 NAUSEA WITH VOMITING, UNSPECIFIED 06/04/2017 TIFFANY BECKER MD Ot Z80.9 FAMILY HISTORY OF MALIGNANT NEOPLASM, UN 06/04/2017 TIFFANY BECKER MD Ot Z87.19 PERSONAL HISTORY OF OTHER DISEASES OF TH 06/04/2017 TIFFANY BECKER MD Ot Z87.39 PERSONAL HISTORY OF DISEASES OF THE MS S 06/04/2017 TIFFANY BECKER MD Ot 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 06/06/2017 TIFFANY BECKER MD Ot F17.210 NICOTINE DEPENDENCE, CIGARETTES, UNCOMPL 06/06/2017 TIFFANY BECKER MD Ot I10 ESSENTIAL (PRIMARY) HYPERTENSION 06/06/2017 TIFFANY BECKER MD Ot J45.909 UNSPECIFIED ASTHMA, UNCOMPLICATED 06/06/2017 TIFFANY BECKER MD Ot K21.9 GASTRO-ESOPHAGEAL REFLUX DISEASE WITHOUT 06/06/2017 TIFFANY BECKER MD Ot K52.9 NONINFECTIVE GASTROENTERITIS AND COLITIS 06/06/2017 TIFFANY BECKER MD Ot N39.0 URINARY TRACT INFECTION, SITE NOT SPECIF 06/06/2017 TIFFANY BECKER MD Ot R10.10 UPPER ABDOMINAL PAIN, UNSPECIFIED 06/06/2017 TIFFANY BECKER MD Ot R11.2 NAUSEA WITH VOMITING, UNSPECIFIED 06/06/2017 TIFFANY BECKER MD Ot Z80.9 FAMILY HISTORY OF MALIGNANT NEOPLASM, UN 06/06/2017 TIFFANY BECKER MD Ot Z87.19 PERSONAL HISTORY OF OTHER DISEASES OF TH 06/06/2017 TIFFANY BECKER MD Ot Z87.39 PERSONAL HISTORY OF DISEASES OF THE MS S 06/06/2017 TIFFANY BECKER MD Ot 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 06/06/2017 BRUEGGEMANN MD, TIFFANY T Ot F17.210 NICOTINE DEPENDENCE, CIGARETTES, UNCOMPL 06/06/2017 TIFFANY BECKER MD Ot I10 ESSENTIAL (PRIMARY) HYPERTENSION 06/06/2017 TIFFANY BECKER MD, Ot J45.909 UNSPECIFIED ASTHMA, UNCOMPLICATED 06/06/2017 TIFFANY BECKER MD Ot K21.9 GASTRO-ESOPHAGEAL REFLUX DISEASE WITHOUT 06/06/2017 TIFFANY BECKER MD Ot K52.9 NONINFECTIVE GASTROENTERITIS AND COLITIS 06/06/2017 TIFFANY BECKRE MD Ot N39.0 URINARY TRACT INFECTION, SITE NOT SPECIF 06/06/2017 TIFFANY BECKER MD Ot R10.10 UPPER ABDOMINAL PAIN, UNSPECIFIED 06/06/2017 TIFFANY BECKER MD Ot R11.2 NAUSEA WITH VOMITING, UNSPECIFIED 06/06/2017 TIFFANY BECKER MD Ot Z80.9 FAMILY HISTORY OF MALIGNANT NEOPLASM, UN 06/06/2017 TIFFANY BECKER MD Ot Z87.19 PERSONAL HISTORY OF OTHER DISEASES OF TH 06/06/2017 TIFFANY BECKER MD Ot Z87.39 PERSONAL HISTORY OF DISEASES OF THE MS S 06/06/2017 TIFFANY BECKER MD Ot 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 07/04/2017 MADL, JAMEEL L TREE MARKER Ot K58.0 IRRITABLE BOWEL SYNDROME WITH DIARRHEA 07/04/2017 MADL, JAMEEL L TREE MARKER Ot R11.10 VOMITING, UNSPECIFIED 07/17/2017 MADL, JAMEEL L TREE MARKER Ot K58.0 IRRITABLE BOWEL SYNDROME WITH DIARRHEA 07/17/2017 MADL, JAMEEL L TREE MARKER Ot R11.10 VOMITING, UNSPECIFIED 08/22/2017 PERFECTO BYRNE APRN Ot F17.210 NICOTINE DEPENDENCE, CIGARETTES, UNCOMPL 08/22/2017 PERFECTO BYRNE REGISTER REPAIRER Ot I10 ESSENTIAL (PRIMARY) HYPERTENSION 08/22/2017 PERFECTO BYRNE APRN Ot J45.909 UNSPECIFIED ASTHMA, UNCOMPLICATED 08/22/2017 PERFECTO BYRNE APRN Ot K21.9 GASTRO-ESOPHAGEAL REFLUX DISEASE WITHOUT 08/22/2017 BYRNE, PETER J REGISTER REPAIRER Ot N39.0 URINARY TRACT INFECTION, SITE NOT SPECIF 08/22/2017 PERFECTO BYRNE REGISTER REPAIRER Ot Q05.9 SPINA BIFIDA, UNSPECIFIED 08/22/2017 PERFECTO BYRNE REGISTER REPAIRER Ot R10.30 LOWER ABDOMINAL PAIN, UNSPECIFIED 08/22/2017 PERFECTO BYRNE REGISTER REPAIRER Ot Z82.49 FAMILY HX OF ISCHEM HEART DIS AND OTH DI 08/22/2017 PERFECTO BYRNE APRN Ot Z87.19 PERSONAL HISTORY OF OTHER DISEASES OF TH 08/22/2017 PERFECTO BYRNE REGISTER REPAIRER Ot Z87.448 PERSONAL HISTORY OF OTHER DISEASES OF UR 08/22/2017 PERFECTO BYRNE REGISTER REPAIRER Ot Z87.890 PERSONAL HISTORY OF SEX REASSIGNMENT Procedures Code [place] [address] ROUTINE VENIPUNCTURE 11/06/2012 89201 BMP 11/06/2012 65924 UA LONG DIP 11/27/2013 36488 CULTURE URINE 11/28/2013 08728 UA W/ CULTURE IF INDICATED 01/10/2014 74858 CULTURE URINE 01/14/2014 65011 ROUTINE VENIPUNCTURE 01/20/2014 11416 UA W/ CULTURE IF INDICATED 01/20/2014 43324 CBC 01/20/2014 26694 CMP 01/20/2014 33706 LIPID PANEL 01/20/2014 [id number] GFR CALC (RESULT ONLY) 01/20/2014 67187 TSH 01/20/2014 22016 CULTURE URINE 01/21/2014 Results Test Result Range Complete urinalysis with reflex to culture - 01/21/17 17:49 Urine color determination YELLOW NRG Urine clarity determination VERY CLOUDY NRG Urine pH measurement by test strip 7 5-9 Specific gravity of urine by test strip 1.010 1.016- 1.022 Urine protein assay by test strip, semi-quantitative [...] culture - 01/21/17 17:49 Bacterial urine culture [id number] NRG COLONY COUNT >100,000/ML NRG FTX;REPORTABLE SENSITIVITY REPORTED AT 1251, 417 NR Bacterial susceptibility panel - 01/21/17 17:49 Gentamicin susceptibility test by minimum inhibitory concentration < = NRG Trimethoprim/sulfamethoxazole susceptibility test by minimum inhibitoryconcentration <= NRG Ampicillin susceptibility test by minimum inhibitory concentration > = NRG Tobramycin susceptibility test by minimum inhibitory concentration < = NRG Cefazolin susceptibility test by minimum inhibitory concentration < = NRG Ceftriaxone susceptibility test by minimum inhibitory concentration <= NRG Ampicillin/sulbactam susceptibility test by minimum inhibitory concentration 16 NRG Piperacillin/tazobactam susceptibility test by minimum inhibitory concentration <= NRG Ciprofloxacin susceptibility test by minimum inhibitory concentration <= NRG Meropenem susceptibility test by minimum inhibitory concentration < = NRG Nitrofurantoin susceptibility test by minimum inhibitory concentration <= NRG Aztreonam susceptibility test by minimum inhibitory concentration < = NRG Extended spectrum beta lactamase (ESBL) producing bacteria susceptibility test by minimum inhibitory concentration - [facility] Complete urinalysis with reflex to culture - 03/18/17 22:20 Urine color determination YELLOW NRG Urine clarity determination CLEAR NRG Urine pH measurement by test strip 6 5-9 Specific gravity of urine by test strip 1.015 1.016- 1.022 Urine protein assay by test strip, semi-quantitative [...] 22:29 Blood leukocytes automated count (number/volume) 12.7 10*3/uL 4.3-11.0 Blood erythrocytes automated count (number/volume) 5.63 10*6/uL 4.35-5.85 Venous blood hemoglobin measurement (mass/volume) 13.8 [...] Automated blood platelet mean volume measurement 10.6 [foz_us] 7.4-10.4 Automated blood neutrophils/100 leukocytes 61 % [...] Serum or plasma sodium measurement (moles/volume) 142 mmol/L 135-145 Serum or plasma potassium measurement (moles/volume) 3.9 mmol/L 3.6-5.0 Serum or plasma chloride measurement (moles/volume) 109 mmol/L 98-107 Carbon dioxide 21 mmol/L 21-32 Serum or plasma anion gap determination (moles/volume) 12 mmol/L 5-14 Serum or plasma urea nitrogen measurement (mass/volume) 9 mg/dL 7-18 Serum or plasma creatinine measurement (mass/volume) 0.85 mg/dL 0.60-1.30 Serum or plasma urea nitrogen/creatinine mass ratio 11 0 -20 Serum or plasma creatinine measurement with calculation of estimated glomerular filtration rate > NRG Serum or plasma glucose measurement (mass/volume) 90 mg/dL 70-105 Serum or plasma calcium measurement (mass/volume) 10.2 mg/dL 8.5-10.1 Serum or plasma total bilirubin [...] 23:38 Stool bacteria identification by culture N2 NR [id number] - 03/18/17 23:38 [id number] FOOTNOTE NR Complete urinalysis with reflex to culture - 04/08/17 14:54 Urine color determination YELLOW NRG Urine clarity determination CLEAR NRG Urine pH measurement by test strip 6.5 5-9 Specific gravity of urine by test strip 1.010 1.016- 1.022 Urine protein assay by test strip, semi-quantitative [...] human chorionic gonadotropin (hCG) measurement NEGATIVE NEGATIVE Bacterial urine culture - 04/08/17 14:54 Bacterial urine culture [id number] NRG COLONY COUNT >100,000/ML NRG FTX;REPORTABLE SENSITIVITY REPORTED 04/10/17 8:44 NRG FREE TEXT ENTRY 2 PLUS, NRG FREE TEXT ENTRY 3 MIXED GRAM POSITIVES <10,000/ML NRG Bacterial susceptibility panel - 04/08/17 14:54 Gentamicin susceptibility test by minimum inhibitory concentration < = NRG Trimethoprim/sulfamethoxazole susceptibility test by minimum inhibitoryconcentration <= NRG Ampicillin susceptibility test by minimum inhibitory concentration R NRG Tobramycin susceptibility test by minimum inhibitory concentration < = NRG Cefazolin susceptibility test by minimum inhibitory concentration < = NRG Ceftriaxone susceptibility test by minimum inhibitory concentration <= NRG Ampicillin/sulbactam susceptibility test by minimum inhibitory concentration 4 NRG Piperacillin/tazobactam susceptibility test by minimum inhibitory concentration <= NRG Ciprofloxacin susceptibility test by minimum inhibitory concentration <= NRG Meropenem susceptibility test by minimum inhibitory concentration < = NRG Nitrofurantoin susceptibility test by minimum inhibitory concentration <= NRG Aztreonam susceptibility test by minimum inhibitory concentration < = NRG Extended spectrum beta lactamase (ESBL) producing bacteria susceptibility test by minimum inhibitory concentration - NRG Complete blood count (CBC) with automated white blood cell (WBC) differential - 04/08/17 15:05 Blood leukocytes automated count (number/volume) 10.0 10*3/uL 4.3-11.0 Blood erythrocytes automated count (number/volume) 5.78 10*6/uL 4.35-5.85 Venous blood hemoglobin measurement (mass/volume) 14.3 [...] Automated blood platelet mean volume measurement 10.4 [foz_us] 7.4-10.4 Automated blood neutrophils/100 leukocytes 76 % [...] Serum or plasma sodium measurement (moles/volume) 139 mmol/L 135-145 Serum or plasma potassium measurement (moles/volume) 3.9 mmol/L 3.6-5.0 Serum or plasma chloride measurement (moles/volume) 107 mmol/L 98-107 Carbon dioxide 21 mmol/L 21-32 Serum or plasma anion gap determination (moles/volume) 11 mmol/L 5-14 Serum or plasma urea nitrogen measurement (mass/volume) 8 mg/dL 7-18 Serum or plasma creatinine measurement (mass/volume) 0.74 mg/dL 0.60-1.30 Serum or plasma urea nitrogen/creatinine mass [...] plasma albumin measurement (mass/volume) 4.3 g/dL 3.2-4.5 Serum or plasma choriogonadotropin ( test) detection - 05/16/17 09:00 Serum or plasma choriogonadotropin ( test) detection NEGATIVE NEGATIVE Serum or plasma choriogonadotropin ( test) detection - 06/04/17 14:30 Serum or plasma choriogonadotropin ( test) detection NEGATIVE NEGATIVE Comprehensive metabolic panel - 06/04/17 14:30 Serum or plasma sodium measurement (moles/volume) 141 mmol/L 135-145 Serum or plasma potassium measurement (moles/volume) 4.1 mmol/L 3.6-5.0 Serum or plasma chloride measurement (moles/volume) 107 mmol/L 98-107 Carbon dioxide 23 mmol/L 21-32 Serum or plasma anion gap determination (moles/volume) 11 mmol/L 5-14 Serum or plasma urea nitrogen measurement (mass/volume) 7 mg/dL 7-18 Serum or plasma creatinine measurement (mass/volume) 0.73 mg/dL 0.60-1.30 Serum or plasma urea nitrogen/creatinine mass ratio 10 NRG Serum or plasma creatinine measurement with calculation of estimated glomerular filtration rate > NRG Serum or plasma glucose measurement (mass/volume) 102 mg/dL 70-105 Serum or plasma calcium measurement (mass/volume) 9.4 mg/dL 8.5-10.1 Serum or plasma total bilirubin measurement (mass/volume) 0.4 mg/dL 0.1-1.0 Serum or plasma alkaline phosphatase measurement (enzymatic activity/volume) 99 U/L 40-136 Serum or plasma aspartate aminotransferase measurement (enzymatic activity/ volume) 19 U/L 5-34 Serum or plasma alanine aminotransferase measurement (enzymatic activity/volume ) 16 U/L 0-55 Serum or plasma protein measurement (mass/volume) 7.6 g/dL 6.4-8.2 Serum or plasma albumin measurement (mass/volume) 4.1 g/dL 3.2-4.5 Magnesium - 06/04/17 14:30 Magnesium 2.3 mg/dL 1.8-2.4 Serum or plasma thyrotropin measurement by detection limit <=0.05 miu/l (units/ volume) - 06/04/17 14:30 Serum or plasma thyrotropin measurement by detection limit <=0.05 miu/l (units/ volume) 0.40 u[iU]/mL 0.35-4.94 Complete blood count (CBC) with automated white blood cell (WBC) differential - 06/04/17 14:30 Blood leukocytes automated count (number/volume) 11.4 10*3/uL 4.3-11.0 Blood erythrocytes automated count (number/volume) 5.32 10*6/uL 4.35-5.85 Venous blood hemoglobin measurement (mass/volume) 14.0 g/dL 11.5-16.0 Blood hematocrit (volume fraction) 43 % 35-52 Automated erythrocyte mean corpuscular volume 80 [foz_us] 80-99 Automated erythrocyte mean corpuscular hemoglobin (mass per erythrocyte) 26 pg 25-34 Automated erythrocyte mean corpuscular hemoglobin concentration measurement ( mass/volume) 33 g/dL 32-36 Automated erythrocyte distribution width ratio 15.9 % 10.0-14.5 Automated blood platelet count (count/volume) 354 10*3/uL 130-400 Automated blood platelet mean volume measurement 9.8 [foz_us] 7.4-10.4 Automated blood neutrophils/100 leukocytes 63 % 42-75 Automated blood lymphocytes/100 leukocytes 24 % 12-44 Blood monocytes/100 leukocytes 8 % 0-12 Automated blood eosinophils/100 leukocytes 4 % 0-10 Automated blood basophils/100 leukocytes 0 % 0-10 Blood neutrophils automated count (number/volume) 7.2 10*3 1.8-7.8 Blood lymphocytes automated count (number/volume) 2.7 10*3 1.0-4.0 Blood monocytes automated count (number/volume) 1.0 10*3 0.0-1.0 Automated eosinophil count 0.5 10*3/uL 0.0-0.3 Automated blood basophil count (count/volume) 0.1 10*3/uL 0.0-0.1 Blood manual differential performed detection - 06/04/17 14:30 Blood monocytes/100 leukocytes 14 % NRG Manual blood segmented neutrophils/100 leukocytes 63 % NRG Blood band neutrophils/100 leukocytes 1 % NRG Manual blood lymphocytes/100 leukocytes 20 % NRG Manual eosinophils/100 leukocytes in nose 2 % NRG Blood erythrocyte morphology finding identification NORMAL NRG Blood dohle body detection by light microscopy SLIGHT NRG Blood hypersegmented neutrophils detection by light microscopy SLIGHT NRG Serum or plasma C reactive protein measurement (mass/volume) - 06/04/17 14:30 Serum or plasma C reactive protein measurement (mass/volume) 2.15 mg /dL 0.00-0.50 Erythrocyte sedimentation rate by westergren method - 06/04/17 14:30 Erythrocyte sedimentation rate by westergren method 23 mm 0-20 Complete urinalysis with reflex to culture - 06/04/17 15:56 Urine color determination YELLOW NRG Urine clarity determination CLEAR NRG Urine pH measurement by test strip 6 5-9 Specific gravity of urine by test strip 1.025 1.016- 1.022 Urine protein assay by test strip, semi-quantitative 1+ NEGATIVE Urine glucose detection by automated test strip NEGATIVE NEGATIVE Erythrocytes detection in urine sediment by light microscopy NEGATIVE NEGATIVE Urine ketones detection by automated test strip 1+ NEGATIVE Urine nitrite detection by test strip NEGATIVE NEGATIVE Urine total bilirubin detection by test strip NEGATIVE NEGATIVE Urine urobilinogen measurement by automated test strip (mass/volume) 4 mg/dL NORMAL Urine leukocyte esterase detection by dipstick 2+ NEGATIVE Automated urine sediment erythrocyte count by microscopy (number/high power field) NONE NRG Automated urine sediment leukocyte count by microscopy (number/high power field ) [HPF] NRG Bacteria detection in urine sediment by light microscopy FEW NRG Squamous epithelial cells detection in urine sediment by light microscopy 2-5 NRG Crystals detection in urine sediment by light microscopy NONE NRG Casts detection in urine sediment by light microscopy NONE NRG Mucus detection in urine sediment by light microscopy SMALL NRG Complete urinalysis with reflex to culture YES NRG Bacterial urine culture - 06/04/17 15:56 Bacterial urine culture [id number] NRG COLONY COUNT 10,000/ML - 100,000/ML NRG FTX;REPORTABLE SENSITIVITY REPORTED AT 1759, 9-17 NR URINE CULTURE RESULTS PLUS NR Bacterial susceptibility panel - 06/04/17 15:56 Gentamicin susceptibility test by minimum inhibitory concentration < = NRG Trimethoprim/sulfamethoxazole susceptibility test by minimum inhibitoryconcentration <= NRG Ampicillin susceptibility test by minimum inhibitory concentration > = NRG Tobramycin susceptibility test by minimum inhibitory concentration < = NRG Cefazolin susceptibility test by minimum inhibitory concentration < = NRG Ceftriaxone susceptibility test by minimum inhibitory concentration <= NRG Ampicillin/sulbactam susceptibility test by minimum inhibitory concentration >= NRG Piperacillin/tazobactam susceptibility test by minimum inhibitory concentration 16 NRG Ciprofloxacin susceptibility test by minimum inhibitory concentration <= NRG Meropenem susceptibility test by minimum inhibitory concentration < = NRG Nitrofurantoin susceptibility test by minimum inhibitory concentration 32 NRG Aztreonam susceptibility test by minimum inhibitory concentration < = NRG Extended spectrum beta lactamase (ESBL) producing bacteria susceptibility test by minimum inhibitory concentration - NR Complete urinalysis with reflex to culture - 08/22/17 20:39 Urine color determination YELLOW NRG Urine clarity determination VERY CLOUDY NRG Urine pH measurement by test strip 6 5-9 Specific gravity of urine by test strip 1.020 1.016- 1.022 Urine protein assay by test strip, semi-quantitative 2+ NEGATIVE Urine glucose detection by automated test strip NEGATIVE NEGATIVE Erythrocytes detection in urine sediment by light microscopy 3+ NEGATIVE Urine ketones detection by automated test [...] detection in urine sediment by light microscopy 5-10 NRG Crystals detection in urine sediment by light microscopy NONE NRG Casts detection in urine sediment by light microscopy NONE NRG Mucus detection in urine sediment by light microscopy NEGATIVE NRG Complete urinalysis with reflex to culture YES NRG Bacterial urine culture - 08/22/17 20:39 Bacterial urine culture [id number] NRG COLONY COUNT >100,000/ML NRG FTX;REPORTABLE PLUS, NRG FREE TEXT ENTRY 2 MIXED GRAM POSITIVES <10,000/ML NRG Bacterial susceptibility panel - 08/22/17 20:39 Gentamicin susceptibility test by minimum inhibitory concentration < = NRG Trimethoprim/sulfamethoxazole susceptibility test by minimum inhibitoryconcentration S NRG Ampicillin susceptibility test by minimum inhibitory concentration > = NRG Tobramycin susceptibility test by minimum inhibitory concentration < = NRG Cefazolin susceptibility test by minimum inhibitory concentration < = NRG Ceftriaxone susceptibility test by minimum inhibitory concentration <= NRG Ampicillin/sulbactam susceptibility test by minimum inhibitory concentration >= NRG Piperacillin/tazobactam susceptibility test by minimum inhibitory concentration <= NRG Ciprofloxacin susceptibility test by minimum inhibitory concentration <= NRG Meropenem susceptibility test by minimum inhibitory concentration < = NRG Nitrofurantoin susceptibility test by minimum inhibitory concentration <= NRG Aztreonam susceptibility test by minimum inhibitory concentration < = NRG Extended spectrum beta lactamase (ESBL) producing bacteria susceptibility test by minimum inhibitory concentration - NRG Encounters ACCT No. Visit Date/Time Discharge Status Pt. Type Provider Facility Loc./Unit Complaint [id number] 01/20/2015 15:13:00 01/20/2015 23:59:59 CLS Outpatient RAYMUNDO TIM APRN [id number] 05/07/2014 07:38:00 05/07/2014 23:59:59 CLS Outpatient PAIGE MUÑIZ DO [id number] 01/20/2014 08:50:00 01/20/2014 23:59:59 CLS Outpatient RAYMUNDO TIM APRN [id number] 01/10/2014 12:52:00 01/10/2014 23:59:59 CLS Outpatient RAYMUNDO TIM APRN [id number] 01/10/2014 12:52:00 01/10/2014 23:59:59 CLS Outpatient RAYMUNDO TIM APRN [id number] 11/27/2013 13:29:00 11/27/2013 23:59:59 CLS Outpatient RAYMUNDO TIM APRN [id number] 11/27/2013 13:29:00 11/27/2013 23:59:59 CLS Outpatient RAYMUNDO TIM APRN [id number] 05/03/2013 00:00:00 05/03/2013 23:59:59 CLS Outpatient VACA REGISTER REPAIRERNAOMI Kim [id number] 11/06/2012 09:56:00 11/06/2012 23:59:59 CLS Outpatient PAIGE MUÑIZ DO [id number] 10/09/2012 10:03:00 10/09/2012 23:59:59 CLS Outpatient PAIGE MUÑIZ DO [id number] 09/06/2012 09:17:00 09/06/2012 23:59:59 CLS Outpatient PAIGE MUÑ[place] [id number] 08/08/2012 08:41:00 08/08/2012 23:59:59 CLS Outpatient PAIGE MUÑIZ DO [id number] 01/02/2013 08:51:00 Document Registration [id number] 08/22/2017 20:28:00 08/22/2017 21:46:00 DIS Emergency PERFECTO BYRNE APRN [facility] ER BLADDER INFECTION [id number] 07/03/2017 06:52:00 07/03/2017 23:59:59 CLS Outpatient JAMEEL BRIONES TREE MARKER [facility] RAD K58.0 [id number] 06/04/2017 13:46:00 06/04/2017 17:43:00 DIS Emergency EUGENIO AVILEZ, TIFFANY Ragsdale [facility] ER VOMITING/DIARRHEA [id number] 05/16/2017 08:02:00 05/16/2017 11:25:00 DIS Outpatient DRAGAN FINLEY DO [facility] ENDO PERSISTANT DIARRHEA/ REFLUX [id number] 05/12/2017 05:31:00 05/12/2017 10:27:00 DIS Outpatient DRAGAN FINLEY DO [facility] PREOP COLONOSCOPY/EGD [id number] 04/08/2017 13:01:00 04/08/2017 19:00:00 DIS Emergency TERRY CURRY [facility] ER N/V/D [id number] 03/18/2017 21:59:00 03/19/2017 00:16:00 DIS Emergency TERRY CURRY [facility] ER DIARRHEA [id number] 01/26/2017 11:04:00 02/07/2017 11:40:00 DIS Outpatient JOVANNILucianaTAEJAMEEL Luciana TREE MARKER [facility] REHAB BILATERAL FOOT PAIN [id number] 01/21/2017 17:22:00 01/21/2017 19:02:00 DIS Emergency CATY PERFECTO Fernandez REGISTER REPAIRER [facility] ER BLISTER ON L R FEET, POSSIBLE UTI [id number] 12/29/2016 12:49:00 12/29/2016 23:59:59 CLS Outpatient SYED MEREDITH REGISTER REPAIRER [facility] RAD N31.1 [id number] 11/29/2016 12:55:00 11/29/2016 23:59:59 CLS Outpatient SHIVAM MAGDALENO R REGISTER REPAIRER [facility] RAD THYROID MASS [id number] 11/24/2016 10:51:00 11/24/2016 23:59:59 CLS Outpatient SHIVAM MAGDALENO R REGISTER REPAIRER [facility] CARD THYROID MASS [id number] 11/03/2016 10:43:00 11/03/2016 23:59:59 CLS Outpatient MAGDALENOSHIVAM Kaur R REGISTER REPAIRER [facility] RAD ENLARGED THYROID [id number] 04/15/2016 01:41:00 04/15/2016 03:28:00 DIS Emergency KENDY INGRAM DO [facility] ER LEFT LOWER BACK PAIN [id number] 06/28/2015 15:00:00 06/28/2015 17:13:00 DIS Emergency JOY POLANCO MD [facility] ER FOREIGN BODY [id number] 05/13/2015 10:33:00 05/13/2015 11:06:00 DIS Emergency ELIE RANKIN DO [facility] ER SUTURE REMOVAL [id number] 05/07/2015 18:09:00 05/07/2015 19:15:00 DIS Emergency ELIE RANKIN DO [facility] ER SUTURE REMOVAL [id number] 04/30/2015 21:52:00 04/30/2015 22:49:00 DIS Emergency TERRY CURRY [facility] ER FOREIGN OBJECT IN R LEG [id number] 04/16/2014 19:41:00 04/17/2014 13:22:00 DIS Inpatient CARMEN AVILEZ, ALYSSA Bellamy [facility] 4TH SEPSIS,UTI [id number] 10/18/2013 08:01:00 10/28/2013 08:57:00 DIS Outpatient ANTHONY APPLE MD [facility] REHAB FOOT DEFORMITY CORRECTION R FOOT [id number] 03/26/2013 18:28:00 03/26/2013 21:30:00 DIS Emergency TERRY CURRY [facility] ER HEADACHE,WEAKNESS, DIZZINESS [id number] 07/27/2012 22:25:00 Document Registration [id number] 06/30/2011 09:55:00 Document Registration [id number] 03/30/2011 12:03:00 Document Registration [id number] 01/04/2011 02:23:00 Document Registration [id number] 11/11/2010 19:05:00 Document Registration [id number] 04/21/2008 00:00:00 Document Registration
[2017-12-14 03:02] LABS: BILIRUBIN,URINE NEGATIVE (NEGATIVE); CLARITY,URINE VERY CLOUDY; COLOR,URINE YELLOW; GLUCOSE, URINE (UA) NEGATIVE (NEGATIVE); KETONES,URINE NEGATIVE (NEGATIVE); LEUKOCYTE ESTERASE ,URINE 3+ (NEGATIVE); NITRITE,URINE NEGATIVE (NEGATIVE); PH,URINE 6 (5-9); PROTEIN,URINE 2+ (NEGATIVE); UROBILINOGEN,URINE NORMAL (NORMAL)
[2017-12-14 03:07] LABS: BACTERIA,URINE LARGE /HPF; WBC,URINE >100 /HPF
[2017-12-14] MEDS ORDERED: RX-ALBUTEROL INHALER (PROAIR) 8 GM IH STA (03:51)
[2017-12-14] MEDS ORDERED: LIDOCAINE 1% INJ 20 ML (XYLOCAINE) VIAL INJ ONE (04:00)
[2017-12-14] MEDS ORDERED: cefTRIAXone 1 GM (ROCEPHIN) VIAL IM ONE (04:00)
[2017-12-14] MEDS ORDERED: LIDOCAINE 1% INJ 50 ML (XYLOCAINE) VIAL ONE (04:12)
[2017-12-14] MEDS ORDERED: CEPH-507 PO (04:25)
--- NOTE | 2017-12-14 04:26 | ED General ---
General Chief Complaint: General Problems/Pain Stated Complaint: TONSILS SWOLLEN,BLADDER INFECTION,ABD PAIN,COUGH Nursing Triage Note: pt presents to er with complaint of possible bladder infection, coughing, swollen tonsil/throat, and ear pain. Nursing Sepsis Screen: No Definite Risk Source of Information: Patient Exam Limitations: No Limitations History of Present Illness Date Seen by Provider: Dec 14, 2017 Time Seen by Provider: 02:41 Initial Comments This 27-year-old woman presents to the emergency room with complaints of cough, sore throat, enlarged tonsils, pain with coughing and swallowing, myalgia, chills, and some vomiting over the weekend. Symptoms have actually been improving. She feels like she has a urinary tract infection today. She also reports continued problems with chronic nausea and abdominal pain. She has had wheezing and difficulty breathing but is out of her inhaler. Allergies and Home Medications Allergies Coded Allergies: latex (Verified Allergy, Unknown, 05/12/17) metformin (Verified Allergy, Unknown, DIARRHEA, 05/16/17) lisinopril (Verified Adverse Reaction, Unknown, COUGH, 05/16/17) nitrofurantoin (Verified Adverse Reaction, Unknown, BODY ACHES , 05/16/17) Uncoded Allergies: TREE NUTS (Allergy, Unknown, 04/16/14) Home Medications Baclofen 10 Mg Tablet, 10 MG PO PRN, (Reported) Cephalexin 500 Mg Capsule, 500 MG PO QID Prescribed by: TIFFANY ROSSI on 12/14/17 0425 Ciprofloxacin HCl 500 Mg Tablet, 500 MG PO BID Prescribed by: TIFFANY ROSSI on 06/04/17 172 Ciprofloxacin HCl 250 Mg Tablet, 250 MG PO BID Prescribed by: PERFECTO BYRNE on 08/22/17 210 Loperamide HCl 2 Mg Capsule, 2 MG PO DAILY, (Reported) Losartan Potassium 100 Mg Tablet, 100 MG PO DAILY, (Reported) Metronidazole 500 Mg Tablet, 500 MG PO TID Prescribed by: TIFFANY ROSSI on 06/04/17 172 Ondansetron 4 Mg Tab.rapdis, 4 MG SL Q4H Prescribed by: TIFFANY ROSSI on 06/04/17 1728 Pantoprazole Sodium 40 Mg Tablet.dr, 40 MG PO DAILY Prescribed by: DRAGAN FINLEY on 05/16/17 1015 Prednisone 20 Mg Tab, 20 MG PO DAILY Prescribed by: TIFFANY ROSSI on 06/04/17 1728 Sucralfate 1 Gm Tablet, 1 GM PO QID Prescribed by: DRAGAN FINLEY on 05/16/17 1015 Testosterone 2.5 Gm Gel.packet, Unknown Dose WEEK, (Reported) Patient Home Medication List Home Medication List Reviewed: Yes Constitutional: see HPI EENTM: see HPI Respiratory: see HPI Cardiovascular: no symptoms reported Gastrointestinal: see HPI Genitourinary: see HPI : No Musculoskeletal: see HPI Skin: no symptoms reported Psychiatric/Neurological: No Symptoms Reported Hematologic/Lymphatic: No Symptoms Reported Past [id number]-Eqcuki-Emxgvn Hx Patient Social History Alcohol Use: Denies Use Recreational Drug Use: Yes (marijuana) Smoking Status: Former Smoker Type Used: Cigarettes 2nd Hand Smoke Exposure: No Recent Foreign Travel: No Contact w/Someone Who Travel: No Recent Infectious Disease Expo: No Recent Hopitalizations: No Immunizations Up To Date Tetanus Booster (TDap): More than 5yrs PED Vaccines UTD: No Seasonal Allergies Seasonal Allergies: No Surgeries History of Surgeries: Yes (lower extremity reconstruction, shunt, back closure for spina bifida ) Surgeries: Bladder Surgery, Brain Shunt, Orthopedic Respiratory History of Respiratory Disorde: Yes Respiratory Disorders: Asthma Cardiovascular History of Cardiac Disorders: Yes Cardiac Disorders: Hypertension Neurological History of Neurological Disord: Yes (spina bifida, neurogenic bladder, hydrocephalus) Reproductive System Hx Reproductive Disorders: No (In process of sex change) Sexually Transmitted Disease: No HIV/AIDS: No Female Reproductive Disorders: Denies Genitourinary History of Genitourinary Disor: Yes Genitourinary Disorders: Kidney Infection, Bladder Infection Gastrointestinal History of Gastrointestinal Di: Yes (Chronic nausea and abdominal pain with associated weight loss) Gastrointestinal Disorders: Gastroesophageal Reflux, Chronic Diarrhea Musculoskeletal History of Musculoskeletal Dis: Yes (OSTEOMYELITIS) Musculoskeletal Disorders: Chronic Back Pain Endocrine History of Endocrine Disorders: Yes (RIGHT ENLARGED THYROID) HEENT Loss of Vision: Denies Hearing Impairment: Denies Cancer History of Cancer: No Psychosocial History of Psychiatric Problem: No Integumentary History of Skin or Integumenta: No Blood Transfusions History of Blood Disorders: No Adverse Reaction to a Blood Tr: No Family Medical History Significant Family History: No Pertinent Family Hx Family Medial History: Cancer 19 FATHER, Onset:Unknown Family history: Allergy 19 FATHER, Onset:Unknown 19 MOTHER, Onset:Unknown Family history: Diabetes mellitus 19 FATHER, Onset:Unknown 19 MOTHER, Onset:Unknown Family history: Gastrointestinal disease 19 FATHER, Onset:Unknown Family history: Hypertension 19 FATHER, Onset:Unknown 19 MOTHER, Onset:Unknown Family history: Thyroid disorder 19 MOTHER, Onset:Unknown Hypercholesterolemia 19 FATHER, Onset:Unknown Myocardial infarction 19 FATHER, Onset:Unknown No Family History of: Abdominal aortic aneurysm Lynbrook's disease Alcoholism Aphasia Cancer of colon Cataract Chest pain Congenital heart disease Congestive heart failure Cystic fibrosis Dementia Dysphagia Family history: Alzheimer's disease Family history: Arthritis Family history: Asthma Family history: Breast disease Family history: Cardiovascular disease Family history: Coronary thrombosis Family history: Glaucoma Family history: Osteoporosis Headache Hearing loss Heart disease Hereditary disease History of - anemia History of - disorder History of - respiratory disease History of drug abuse Human immunodeficiency virus (HIV) seropositivity Infertile Kidney disease Malignant neoplasm of lung Parkinson's disease Prostate cancer Psychotic disorder Seizure disorder Stroke Tuberculosis Visual impairment Physical Exam Vital Signs Vital Signs - First Documented 12/14/17 02:07 Temp 99.4 Pulse 98 Resp 20 B/P (MAP) 178/116 (136) Pulse Ox 97 O2 Delivery Room Air Capillary Refill : Less Than 3 Seconds General Appearance: No Apparent Distress, WD/WN HEENT: PERRL/EOMI, TMs Normal, Normal ENT Inspection, Pharynx Normal Neck: Normal Inspection Respiratory: Lungs Clear, Normal Breath Sounds, No Accessory Muscle Use, No Respiratory Distress Cardiovascular: No Edema, No Murmur, Tachycardia Gastrointestinal: Normal Bowel Sounds, Soft, Tenderness (Stated as chronic) Extremity: Normal Inspection, No Pedal Edema Neurologic/Psychiatric: Alert, Oriented x3, No Motor/Sensory Deficits, Normal Mood/Affect, transport company manager II-XII Norm as Tested Skin: Normal Color, Warm/Dry Progress/Results/Core Measures Suspected Sepsis Recent Fever Within 48 Hours: No Infection Criteria Present: None New/Unexplained Altered Menta: No Sepsis Screen: No Definite Risk Sepsis Diagnosis: SIRS Temperature:99.4 Pulse: 98 Respiratory Rate: 20 Blood Pressure 178 /116 Mean: 136 Results/Orders Lab Results Laboratory Tests Test 12/14/17 02:50 12/14/17 02:52 Range/Units Urine Color YELLOW Urine Clarity VERY CLOUDY H Urine pH 6 5-9 Urine Specific [place] 1.020 1.016-1.022 Urine Protein 2+ H NEGATIVE Urine Glucose (UA) NEGATIVE NEGATIVE Urine Ketones NEGATIVE NEGATIVE Urine Nitrite NEGATIVE NEGATIVE Urine Bilirubin NEGATIVE NEGATIVE Urine Urobilinogen NORMAL NORMAL MG/DL Urine Leukocyte Esterase 3+ H NEGATIVE Urine RBC (Auto) 5+ H NEGATIVE Urine RBC 5-10 H /HPF Urine WBC >100 H /HPF Urine Squamous Epithelial Cells 2-5 /HPF Urine Crystals NONE /LPF Urine Bacteria LARGE H /HPF Urine Casts NONE /LPF Urine Mucus NEGATIVE /LPF Urine Culture Indicated YES Group A Streptococcus Screen NEGATIVE NEGATIVE Micro Results Microbiology 12/14/17 Throat Culture - Preliminary, Resulted No Beta Strep isolated 12/14/17 Influenza Types A,B Antigen (JINA) - Final, Complete 12/14/17 Urine Culture - Preliminary, Resulted Streptococcus pyogenes Grp A Escherichia coli My Orders Orders - TIFFANY BECKER MD Ua Culture If Indicated (12/14/17 02:41) Rapid Strep A Screen (12/14/17 02:41) Influenza A And B Antigens (12/14/17 02:41) Urine Culture (12/14/17 02:50) Ceftriaxone Injection (Rocephin Injectio (12/14/17 04:00) Lidocaine 1% Injection (Xylocaine 1% Inj (12/14/17 04:00) Rx-Albuterol Inhaler (Rx-Proair) (12/14/17 03:51) Lidocaine 1% (Xylocaine 1%) (12/14/17 04:12) Vital Signs/I&O Capillary Refill : Less Than 3 Seconds Blood Pressure Mean: 136 Progress Note : Progress Note Patient was found to have a significant urinary tract infection. She was given a Rocephin injection. A take-home albuterol inhaler was dispensed. Departure Impression Impression: Primary Impression: Urinary tract infection Qualified Codes: N39.0 - Urinary tract infection, site not specified Additional Impressions: Asthma exacerbation Qualified Codes: J45.901 - Unspecified asthma with (acute) exacerbation Pharyngitis Qualified Codes: J02.9 - Acute pharyngitis, unspecified Disposition: HOME, SELF-CARE Condition: Improved Departure-Patient Inst. Referrals: PAIGE MUÑIZ DO (PCP) Primary Care Physician JAMEEL BRIONES (Family) Primary Care Physician Patient Instructions: Urinary Tract Infection, Adult (DC) Add. Discharge Instructions: Drink plenty of clear liquids. You may take Tylenol and/or ibuprofen for pain. Complete your antibiotics as prescribed. After at least 48 hours, follow up with your primary care provider to review your culture results. Return to care if symptoms worsen. All discharge instructions reviewed with patient and/or family. Voiced understanding. Scripts Cephalexin (Keflex) 500 Mg Capsule 500 MG PO QID, #28 CAP Prov: TIFFANY BECKER MD 12/14/17 TIFFANY BECKER MD Dec 14, 2017 04:25
[2017-12-14 04:30] VITALS: BP 178/116
== END 2017-12-14 04:30 | disposition home or self-care (01) ==
LOC: EDUNIT# 01:51 → ER 01:55
DX: N39.0 Urinary tract infection, site not specified (principal); J45.901 Unspecified asthma with (acute) exacerbation; J02.9 Acute pharyngitis, unspecified; K21.9 Gastro-esophageal reflux disease without esophagitis; K52.9 Noninfective gastroenteritis and colitis, unspecified; I10 Essential (primary) hypertension; F12.90 Cannabis use, unspecified, uncomplicated; Z87.891 Personal history of nicotine dependence; Z86.39 Personal history of other endocrine, nutritional and metabolic disease; Z79.52 Long term (current) use of systemic steroids; Z91.040 Latex allergy status; Z88.8 Allergy status to other drugs, medicaments and biological substances; Z88.1 Allergy status to other antibiotic agents
CPT/HCPCS: 81000; 87077; 87088; 87186; 87430; 87804; 96372; 99284